=== PATIENT | female | born 1985 | race Caucasian/White ===

== ENCOUNTER 2020-01-04 10:40 | Outpatient (REF) | payer MEDICAID, SELFPAY ==
--- NOTE | 2020-01-04 | XR_ITS ---
EXAMINATION: XR HIP, RIGHT CLINICAL INFORMATION: Pain right hip COMPARISON: None TECHNIQUE: Two views of the right hip. FINDINGS: There is no fracture or dislocation or destructive process. Bony mineralization appears normal. There is no definite hip joint narrowing. No erosive change or chondrocalcinosis. Soft tissue planes are unremarkable. The right SI joint and the pubis are unremarkable. XR/XR hip RT min 2V IMPRESSION: Normal right hip.
== END 2020-01-04 10:41 | disposition home or self-care (01) ==
LOC: HO.XRAY 10:40
PROVIDERS: PCP Internal Medicine; Visit Provider Internal Medicine
DX: M25.551 Pain in right hip (principal)
CPT/HCPCS: 73502

== ENCOUNTER → 2020-01-17 13:00 | Outpatient (BNVA) | payer MEDICAID, SELFPAY | PROVIDERS: PCP Internal Medicine; Visit Provider Orthopaedic Surgery | DX: M70.61 Trochanteric bursitis, right hip (principal) | CPT/HCPCS: 99202 ==

== ENCOUNTER 2020-02-27 10:00 | Outpatient (RCR) | payer MEDICAID, SELFPAY ==
--- NOTE | 2020-03-18 09:16 | MHC.PT.DC ---
[facility] [place] [facility] [place] [facility] [place] [facility] [address] Rich Mueller [address] [phone] F: [phone] F: [phone] F: [phone] F: [phone] Physical Therapy Discharge Report Diagnosis: R hip bursitis. Date of Surgery: Date of Evaluation: 01/30/20 Date of Discharge: 03/18/20 Treatments to Date: 6 Cancellations to Date: 2 No Shows to Date: 2 Discharge Status: Achieved Goals Improved Function Independent with HEP Discharge Summary: Barbara has been an active and motivated participant in her therapy in and out of the clinic before she had logged 2 no show appointments at the end of her program; this is after reporting significant relief of hip pain Sx and significantly improved functional ability; from last Note: 95% subjective improvement reported . Before attendance non compliance Barbara had become I with her home program and demonstrated achieved goals. Electronically signed by: Adrian Pugh PT. Please sign and return to therapist. Thank you for your referral.
== END 2020-12-23 08:02 | disposition home or self-care (01) ==
LOC: HO.PTCHIC 10:00
PROVIDERS: PCP Internal Medicine; Visit Provider Orthopaedic Surgery
DX: M70.61 Trochanteric bursitis, right hip (principal)
CPT/HCPCS: 97014; 97033; 97110; 97112; 97140; 97161

== ENCOUNTER 2020-04-03 09:30 | Emergency (ER) | payer MEDICAID, SELFPAY ==
--- NOTE | 2020-04-03 10:35 | ECG_ITS ---
Test Reason : CHEST PAIN Blood Pressure : / mmHG Vent. Rate : 079 BPM Atrial Rate : 079 BPM P-R Int : 146 ms QRS Dur : 086 ms QT Int : 390 ms P-R-T Axes : 026 -16 011 degrees QTc Int : 447 ms Normal sinus rhythm Normal ECG When compared with ECG of 20-JUN-2018 23:33, Nonspecific T wave abnormality now evident in Inferior leads Referred By: Krystal Clemente Electronically Signed By:DARIO VELAZQUEZ MD
--- NOTE | 2020-04-03 10:35 | XR_ITS ---
EXAMINATION: XR CHEST CLINICAL INFORMATION: Chest pain COMPARISON: Previous chest x-ray May 2018 TECHNIQUE: Frontal view of the chest was obtained. FINDINGS: No significant abnormality is noted involving the heart, lungs, mediastinum, bony thorax or soft tissues. XR/XR chest 1V IMPRESSION: Unremarkable examination.
[2020-04-03 10:39] VITALS: BP 140/89; PULSE 70; RESP 15; TEMP 36.9; O2SAT 98; BMI 28.3
[2020-04-03 10:54] LABS: MANUAL DIFF FLAG NO
--- NOTE | 2020-04-03 10:54 | ED_ITS ---
HPI - Chest Pain General Chief Complaint: Chest Pain Stated Complaint: CHEST PAIN Time Seen by Provider: 04/03/20 10:29 Source: patient Mode of arrival: ambulatory History of Present Illness HPI narrative: 35-year-old female with a past medical history of asthma, hypothyroid, presenting to the ED complaining of sudden onset substernal/left- sided chest pain while cleaning her living room around 8:30 a.m. admits to mild associated SOB. Denies fever, chills, cough, recent travel, history of blood clots, LE edema Reports similar symptoms in the past due to her anxiety, however states this feels different MD complaint: chest pain Related Data Home Medications Medication Instructions Recorded Confirmed albuterol sulfate 2 mg tablet 2 mg PO TID 01/08/20 diphenhydramine HCl 12.5 mg/5 mL 25 mg PO BEDTIME PRN 01/08/20 oral liquid ibuprofen 800 mg tablet 800 mg PO Q8H 01/08/20 Previous Rx's Medication Instructions Recorded diclofenac sodium 75 mg 75 mg PO BID #60 tab 01/22/20 tablet,delayed release levothyroxine 75 mcg PO DAILY #30 cap 04/03/20 Allergies Allergy/AdvReac Type Severity Reaction Status Date / Time latex [Latex] Allergy Mild RASH Unverified 11/16/19 17:26 levofloxacin [From Levaquin] Allergy Mild RASH Unverified 11/16/19 17:26 LATEX Allergy Unknown rash Uncoded 08/10/16 00:00 Latex Gloves Allergy Unknown Uncoded 05/18/16 00:00 Levaquin Allergy Unknown skin Uncoded 08/10/16 00:00 reaction Review of Systems Review of Systems: Constitutional: No Weight loss, No Fever, No Chills Cardiovascular: +Chest Pain, +SOB, No Dyspnea on Exertion, No Orthopnea, No Edema, No Palpitations Respiratory: No Cough, No Sputum, No Wheezing, No Smoke Exposure, No Dyspnea Gastrointestinal: No Nausea, No Vomiting, No Diarrhea, No Constipation, No Abdominal pain Genitourinary: No Dysuria, No Hematuria Musculoskeletal: No joint pain, No Myalgias, No Joint Swelling Skin: No Skin Lesions, No rash Neuro: No Weakness, No Numbness, No Dizziness, No Headache Yes all other systems are reviewed and are negative PMFSH Past Medical History Attestation statement: The following information was validated with the patient. Medical History (Updated 04/03/20 @ 14:04 by JAMES Chun) Arthralgia Asthma Cryptic tonsil Dysphagia Hypothyroidism Moderate hyperemesis gravidarum Suspected COVID-19 virus infection Thyroid nodule Surgical History (Updated 01/17/20 @ 13:08 by Tania Vasquez CMA) Previous section Social History Social History (Updated 01/17/20 @ 13:09 by Tania Vasquez CMA) Smoking Status: Current every day smoker Smoked in Last 30 Days: Yes Use of substances other than those prescribed or required for medical reasons: Yes Substance Use Type: Marijuana Advance Directives: No Advance Directives Information Provided: No Current occupational status: unemployed Current occupation: Right handed Physical Exam Vital Signs: Vital Signs: Last Vital Signs Temp 98.4 F 04/03/20 10:39 Pulse 70 04/03/20 10:39 Resp 15 04/03/20 10:39 BP 140/89 H 04/03/20 10:39 Pulse Ox 98 04/03/20 10:39 Body Mass Index 28.3 Const: General: cooperative, healthy appearing, comfortable and no acute distr ess Orientation/consciousness: patient oriented x3 Limitations: no limitations HENMT: Head: Yes normal to inspection Ears: hearing grossly normal bilaterally General nose exam: Normal external nose present Face and sinus: Yes normal facial exam Eyes: General: appearance normal, both eyes and all related structures EOM: EOMs intact bilaterally Neck: Neck: Yes normal visual inspection Chest: Chest palpation & inspection: normal inspection of the chest, no crepitus and no tenderness Resp: Effort & Inspection: normal respiratory effort Auscultation: clear to auscultation bilaterally, no rales, no rhonchi and no wheezes Cardio: Rate: regular rate Heart sounds: S1 normal heart sound present and S2 normal heart sound present GI: Inspection: Yes normal to inspection Palpation (GI): Soft to palpation, nontender, no guarding and not rigid Skin: Rashes: no rashes Wounds: no wounds Neuro: General: patient oriented x3 Gait exam (Neuro): Normal gait present Extrem: Other: No LE edema or calf tenderness General: Yes normal to inspection Course Course Course Narrative: -1230-- initial troponin negative. TSH level very elevated, T4 low > patient reports she has been noncompliant with her levothyroxine x multiple years due to issues with doctor. Reports she used to be on 75 mcg daily, will give dose here today, & send with RX and follow-up with endocrine. No evidence of edema, no confusion, not hypothermic or bradycardic > no evidence hypothyroid crisis -1400-- repeat troponin pending, patient would like to leave prior to results, will call if positive Results discussed including worrisome signs and symptoms and strict return precautions. MDM - Chest Pain MDM Narrative Medical decision making narrative: 35-year-old female with a past medical history of asthma, hypothyroid, presenting to the ED complaining of sudden onset substernal/left-sided chest pain while cleaning her living room around 8:30 a.m. on exam VSS, NAD/nontoxic appearing, pain not reproducible, lungs CTA. Concern for ACS vs MSK pain. Low concern for PE/DVT or pneumonia/viral syndrome Plan: EKG, labs, CXR, re-evaluate Lab Data Result diagrams: 04/03/20 10:49 04/03/20 10:49 Labs: Lab Results 04/03/20 04/03/20 04/03/20 Range/Units 10:49 10:49 10:49 WBC 10.2 (4.8-10.8) X10*3/uL RBC 4.28 (4.20-5.50) X10*6/uL Hgb 12.0 (12.0-16.0) g/dl Hct 36.3 L (37-47) % MCV 84.8 (80-98) fL MCH 28.0 (27.0-33.0) pg MCHC 33.1 (31.0-35.0) g/dl RDW 13.3 (11.0-16.0) % Plt Count 353 (160-400) X10*3/uL MPV 9.9 (9.4-12.3) fL Immature Gran % (Auto) 0.3 (0.0-0.4) % Neut % (Auto) 71.0 (45-73) % Lymph % (Auto) 21.3 (20-40) % [place] % (Auto) 4.7 (2-11) % Eos % (Auto) 1.8 (0-4) % Baso % (Auto) 0.9 (0-2) % Lymph # (Auto) 2.2 (1.2-4.9) X10*3/uL [place] # (Auto) 0.5 (0.1-1.2) X10*3/uL Eos # (Auto) 0.2 (0.0-0.4) X10*3/uL Baso # (Auto) 0.1 (0.0-0.2) X10*3/uL Abs Immat Gran (auto) 0.03 (0.00-0.03) X10*3/uL Absolute Neuts (auto) 7.3 (2.0-8.3) X10*3/uL Absolute Nucleated RBC 0.000 (0.0-0.012) X10*3/uL Nucleated RBC % (auto) 0.0 (0.0-0.2) /100WBC Hold Blue Top SEE NOTE Sodium 137 (135-145) mmol/L Potassium 3.8 (3.3-5.1) mmol/L Chloride 103 (96-108) mmol/L Carbon Dioxide 25 (22-29) mmol/L Anion Gap 13 (12-20) BUN 5 L (9-16) mg/dL Creatinine 0.72 (0.5-1.4) mg/dL Estim Creat Clear Calc 96.2 Estimated GFR > 60 Random Glucose 97 (60-115) mg/dL Calcium 8.8 (8.4-10.2) mg/dL Magnesium 2.2 (1.6-2.6) mg/dL Total Bilirubin 0.8 (0.0-1.0) mg/dL Direct Bilirubin 0.2 (0.0-0.5) mg/dL AST 16 (5-31) U/L ALT 18 (0-31) U/L Alkaline Phosphatase 77 (39-117) U/L Troponin I High Sens (<3.5-17.0) ng/L Total Protein 6.9 (6.5-8.0) g/dL Albumin 4.5 (3.5-5.0) g/dL TSH 20.99 H (0.32-4.0) uIU/mL Free T4 0.63 L (0.71-1.85) ng/dL 04/03/20 Range/Units 10:49 WBC (4.8-10.8) X10*3/uL RBC (4.20-5.50) X10*6/uL Hgb (12.0-16.0) g/dl Hct (37-47) % MCV (80-98) fL MCH (27.0-33.0) pg MCHC (31.0-35.0) g/dl RDW (11.0-16.0) % Plt Count (160-400) X10*3/uL MPV (9.4-12.3) fL Immature Gran % (Auto) (0.0-0.4) % Neut % (Auto) (45-73) % Lymph % (Auto) (20-40) % [place] % (Auto) (2-11) % Eos % (Auto) (0-4) % Baso % (Auto) (0-2) % Lymph # (Auto) (1.2-4.9) X10*3/uL [place] # (Auto) (0.1-1.2) X10*3/uL Eos # (Auto) (0.0-0.4) X10*3/uL Baso # (Auto) (0.0-0.2) X10*3/uL Abs Immat Gran (auto) (0.00-0.03) X10*3/uL Absolute Neuts (auto) (2.0-8.3) X10*3/uL Absolute Nucleated RBC (0.0-0.012) X10*3/uL Nucleated RBC % (auto) (0.0-0.2) /100WBC Hold Blue Top Sodium (135-145) mmol/L Potassium (3.3-5.1) mmol/L Chloride (96-108) mmol/L Carbon Dioxide (22-29) mmol/L Anion Gap (12-20) BUN (9-16) mg/dL Creatinine (0.5-1.4) mg/dL Estim Creat Clear Calc Estimated GFR Random Glucose (60-115) mg/dL Calcium (8.4-10.2) mg/dL Magnesium (1.6-2.6) mg/dL Total Bilirubin (0.0-1.0) mg/dL Direct Bilirubin (0.0-0.5) mg/dL AST (5-31) U/L ALT (0-31) U/L Alkaline Phosphatase (39-117) U/L Troponin I High Sens < 3.5 (<3.5-17.0) ng/L Total Protein (6.5-8.0) g/dL Albumin (3.5-5.0) g/dL TSH (0.32-4.0) uIU/mL Free T4 (0.71-1.85) ng/dL ECG Data ECG #1: Attestation: I personally reviewed and interpreted this ECG as follows: ECG interpretation date: 04/03/20 ECG interpretation time: 12:52 Prior ECG tracings: available for review Interpretation: EKG normal sinus rhythm with a rate of 79. Nonischemic. Discharge Plan Discharge Clinical Impression: Chest pain, Hypothyroid Patient Disposition: Home, Self-Care Instructions: Chest Pain (ED), Hypothyroidism (ED) Additional Instructions: Your blood work showed your thyroid function abnormalities as you have not been taking her thyroid medicine Re-initiate taking levothyroxine as prescribed. You need to follow-up with her primary care doctor as well as endocrinology. Your 2nd heart enzyme is pending, I will contact you if it is positiv e/concerning. No news is good news If her symptoms persist or worsen, your shortness of breath, swelling, fever return to the ED Prescriptions: New levothyroxine 75 mcg capsule 75 mcg PO DAILY Qty: 30 RF: 0 No Action diclofenac sodium 75 mg tablet,delayed release (DR/EC) 75 mg PO BID Qty: 60 RF: 2 Referrals: De Bryant MD [Primary Care Provider] - 2 days Marek Rincon MD [Physician] - 2 days
[2020-04-03 10:57] LABS: Basophils Absolute Auto 0.1 X10*3/uL (0.0-0.2); Basophils Percent Auto 0.9 % (0-2); Eosinophils Absolute Auto 0.2 X10*3/uL (0.0-0.4); Eosinophils Percent Auto 1.8 % (0-4); Hematocrit 36.3 % (37-47); Imm Gran Abs Auto 0.03 X10*3/uL (0.00-0.03); Imm Gran Pct Auto 0.3 % (0.0-0.4); Lymphocytes Absolute Auto 2.2 X10*3/uL (1.2-4.9); Lymphocytes Percent Auto 21.3 % (20-40); Mean Corpuscular HGB Conc 33.1 g/dl (31.0-35.0); Mean Corpuscular Volume 84.8 fL (80-98); Mean Platelet Volume 9.9 fL (9.4-12.3); Monocytes Absolute Auto 0.5 X10*3/uL (0.1-1.2); Monocytes Percent Auto 4.7 % (2-11); Neutrophils Absolute Auto 7.3 X10*3/uL (2.0-8.3); Platelet Count 353 X10*3/uL (160-400); Red Blood Count 4.28 X10*6/uL (4.20-5.50); Red Cell Distribution Width 13.3 % (11.0-16.0); White Blood Count 10.2 X10*3/uL (4.8-10.8)
[2020-04-03 11:28] LABS: Alanine Aminotransferase 18 U/L (0-31); Albumin Level 4.5 g/dL (3.5-5.0); Alkaline Phosphatase 77 U/L (39-117); Anion Gap 13 (12-20); Aspartate Amino Transferase 16 U/L (5-31); Bilirubin Direct 0.2 mg/dL (0.0-0.5); Bilirubin Total 0.8 mg/dL (0.0-1.0); Blood Urea Nitrogen 5 mg/dL (9-16); Calcium 8.8 mg/dL (8.4-10.2); Carbon Dioxide 25 mmol/L (22-29); Chloride 103 mmol/L (96-108); Creatinine Clr Calc Pharmacy 96.2; Estimated Glomerular Filt Rate > 60; Glucose Random 97 mg/dL (60-115); Magnesium 2.2 mg/dL (1.6-2.6); Potassium 3.8 mmol/L (3.3-5.1); Sodium 137 mmol/L (135-145); Total Protein 6.9 g/dL (6.5-8.0)
[2020-04-03 11:30] LABS: Troponin-I High Sensitivity < 3.5 ng/L (<3.5-17.0)
[2020-04-03 12:05] LABS: TSH reflex Free T4 20.99 uIU/mL (0.32-4.0)
[2020-04-03 12:37] LABS: Free T4 (Free Thyroxine) 0.63 ng/dL (0.71-1.85)
[2020-04-03] MEDS: Levothyroxine Sodium 75 MCG TABLET PO (13:05)
[2020-04-03 14:03] VITALS: BP 120/83; PULSE 75; RESP 18; O2SAT 97
[2020-04-03 14:25] LABS: Troponin-I High Sensitivity < 3.5 ng/L (<3.5-17.0)
== END 2020-04-03 14:15 | disposition home or self-care (01) ==
PROVIDERS: Physician Assistant; Emergency Provider Emergency Medicine; PCP Internal Medicine
DX: R07.9 Chest pain, unspecified (principal); E03.9 Hypothyroidism, unspecified; F17.200 Nicotine dependence, unspecified, uncomplicated
CPT/HCPCS: 36415; 71045; 80048; 80076; 83735; 84439; 84443; 84484; 85025; 93005; 99284

== ENCOUNTER 2020-10-04 07:24 | Emergency (ER) | payer MEDICAID, SELFPAY ==
--- NOTE | ~2020-10-04 | XR_ITS ---
EXAMINATION: XR FOOT, RIGHT CLINICAL INFORMATION: Right heel pain COMPARISON: None TECHNIQUE: AP, lateral, and oblique views of the right foot. FINDINGS: Bone alignment is normal. No fracture or dislocation is seen. Joint spaces are normal. Soft tissues are normal. XR/XR foot RT 2V IMPRESSION: Normal right foot.
[2020-10-04 07:31] VITALS: BP 138/88; PULSE 92; RESP 18; TEMP 36.6; O2SAT 99; BMI 28.3
--- NOTE | 2020-10-04 08:39 | ED.LOWEXIN ---
HPI - Extremity Injury (Lower) General Chief Complaint: Extremity Injury, Lower Stated Complaint: injury Time Seen by Provider: 10/04/20 08:28 Source: patient Mode of arrival: ambulatory Limitations: no limitations History of Present Illness HPI Narrative: 35 y/o female presenting with right heel pain after she jumped off of a 2nd step while playing with her children yesterday. She heard a pop and had immediate pain. She had a hard time sleeping last night due to the pain. She reports the pain persisted this morning so she came to the ER for evaluation. She states the pain is only in the heel itself, no ankle, toe, knee or hip pain. No numbness or tingling. She is able to walk on the ball of her foot but unable to put pressure on the heel. MD complaint: foot injury Onset (ago): day(s) (1) Injury: Right: foot Type of Injury: blunt Place: home Severity: moderate Relieving factors: NSAID and immobilization Exacerbating factors: weight bearing and palpation Context: direct blow and jumping Associated symptoms: snap/pop sensation and able to partially bear weight Other symptoms: none Treatments prior to arrival: cold therapy and NSAIDS Related Data Home Medications Medication Instructions Recorded Confirmed albuterol sulfate 2 mg tablet 2 mg PO TID 01/08/20 diphenhydramine HCl 12.5 mg/5 mL 25 mg PO BEDTIME PRN 01/08/20 oral liquid (Benadryl Allergy) ibuprofen 800 mg tablet 800 mg PO Q8H 01/08/20 Previous Rx's Medication Instructions Recorded diclofenac sodium 75 mg 75 mg PO BID #60 tab 01/22/20 tablet,delayed release levothyroxine 75 mcg capsule 75 mcg PO DAILY #30 cap 04/03/20 ibuprofen 800 mg tablet 800 mg PO Q8H PRN #14 tab 10/04/20 Allergies Allergy/AdvReac Type Severity Reaction Status Date / Time latex [Latex] Allergy Mild RASH Verified 10/04/20 07:35 levofloxacin [From Levaquin] Allergy Mild RASH Verified 10/04/20 07:35 LATEX Allergy Unknown rash Uncoded 08/10/16 00:00 Review of Systems Review of Systems: Constitutional: No Fever, No Chills Cardiovascular: No Chest Pain, No SOB Respiratory: No Cough, No Sputum Gastrointestinal: No Nausea, No Vomiting Musculoskeletal: + joint pain, No Myalgias Skin: No Skin Lesions, No rash Neuro: No Weakness, No Numbness Psych: No Anxiety/Panic, No Depression Heme/Lymph: No Bruising PMFSH Past Medical History Medical History Arthralgia Asthma Cryptic tonsil Dysphagia Hypothyroidism Moderate hyperemesis gravidarum Suspected COVID-19 virus infection Thyroid nodule Surgical History (Updated 01/17/20 @ 13:08 by Tania Vasquez CMA) Previous section Social History Social History (Updated 01/17/20 @ 13:09 by Tania Vasquez CMA) Substance Use Type: Marijuana Advance Directives: Yes Advance Directives Information Provided: Yes Advance Directives on File: No Current occupational status: unemployed Current occupation: Right handed Physical Exam Vital Signs: Vital Signs: Last Vital Signs Temp 97.8 F 10/04/20 07:31 Pulse 92 10/04/20 07:31 Resp 18 10/04/20 07:31 BP 138/88 10/04/20 07:31 Pulse Ox 99 10/04/20 07:31 Body Mass Index 28.3 Appearance: Alert. Oriented X3. No acute distress. HEENT: normal inspection CVS: Normal heart rate and rhythm. Pulses normal. Respiratory: No respiratory distress. Skin: Skin warm and dry. Normal skin color. Normal skin turgor. No rashes. Extremities: normal inspection of right foot, right heel with tenderness throughout. negative Wallace test. normal palpation of Achilles tendon. Neuro: Oriented X 3. No motor deficit. No sensory deficit. Unable to test gait due to pain Course Course Course Narrative: 35 y/o female presenting with right heel pain after jumping off of 2 steps onto the ground. The mechanism does not seem to be enough to cause calcaneous fracture. Achilles tendon is intact. XR is pending. Reevaluation(s) Reevaluation #1: Foot XR is negative for acute fracture. We discussed dedicated calcaneous XR vs watchful waiting and supportive care with rest and NSAID. Patient will be discharged home with crutches and will plan to return if pain persists or worsens despite supportive care. Discharge Plan Discharge Clinical Impression: Contusion of foot Qualifiers: Encounter type: initial encounter Laterality: right Qualified Code(s): S90.31XA - Contusion of right foot, initial encounter Patient Disposition: Home, Self-Care Instructions: Foot Contusion (ED) Additional Instructions: Your x-ray today was normal. Recommend rest, ice and elevation. Stay off of your foot and use crutches until pain is improved. Take prescribed motrin as needed for pain. Take with food. If you have persistent or worsening pain come back to the ER for re-evaluation. Prescriptions: New ibuprofen 800 mg tablet 800 mg PO Q8H PRN (Reason: pain) Qty: 14 RF: 0 No Action diclofenac sodium 75 mg tablet,delayed release (DR/EC) 75 mg PO BID Qty: 60 RF: 2 levothyroxine 75 mcg capsule 75 mcg PO DAILY Qty: 30 RF: 0 Interventions: ED Discharge Assessment Last Done: 10/04/20 09:04 Discharge Date/Time: 10/04/20 09:05
== END 2020-10-04 09:05 | disposition home or self-care (01) ==
PROVIDERS: Emergency Provider Emergency Medicine Emergency Medical Services
DX: S90.31XA Contusion of right foot, initial encounter (principal); Y93.39 Activity, other involving climbing, rappelling and jumping off; Y93.9 Activity, unspecified; Y92.009 Unspecified place in unspecified non-institutional (private) residence as the place of occurrence of the external cause; Y99.9 Unspecified external cause status
CPT/HCPCS: 73620; 99283

== ENCOUNTER 2020-11-24 07:58 | Emergency (ER) | payer MEDICAID, SELFPAY ==
--- NOTE | 2020-11-24 | ECG_ITS ---
Test Reason : CP Blood Pressure : / mmHG Vent. Rate : 076 BPM Atrial Rate : 076 BPM P-R Int : 146 ms QRS Dur : 082 ms QT Int : 430 ms P-R-T Axes : 013 -10 018 degrees QTc Int : 483 ms Poor data quality, interpretation may be adversely affected Normal sinus rhythm Nonspecific ST and T wave abnormality Abnormal ECG When compared with ECG of 03-APR-2020 09:59, No significant change was found Referred By: Generic ED Physician Electronically Signed By:EMELY THOMPSON
--- NOTE | ~2020-11-24 | XR_ITS ---
EXAMINATION: XR CHEST CLINICAL INFORMATION: Chest pain. COMPARISON: None TECHNIQUE: Frontal view of the chest was obtained. FINDINGS: No significant abnormality is noted involving the heart, lungs, mediastinum, bony thorax or soft tissues. XR/XR chest 1V IMPRESSION: Unremarkable chest examination.
[2020-11-24 08:08] VITALS: BP 131/81; PULSE 83; RESP 16; TEMP 37.1; O2SAT 97; BMI 25.6
[2020-11-24 08:13] VITALS: PULSE 88
[2020-11-24 08:44] LABS: MANUAL DIFF FLAG NO
[2020-11-24 08:46] LABS: Basophils Absolute Auto 0.1 X10*3/uL (0.0-0.2); Basophils Percent Auto 0.9 % (0-2); Eosinophils Absolute Auto 0.2 X10*3/uL (0.0-0.4); Hematocrit 35.7 % (37-47); Hemoglobin 11.8 g/dl (12.0-16.0); Imm Gran Abs Auto 0.02 X10*3/uL (0.00-0.03); Imm Gran Pct Auto 0.3 % (0.0-0.4); Lymphocytes Absolute Auto 2.1 X10*3/uL (1.2-4.9); Lymphocytes Percent Auto 27.3 % (20-40); Mean Corpuscular HGB Conc 33.1 g/dl (31.0-35.0); Mean Corpuscular Hemoglobin 28.5 pg (27.0-33.0); Mean Corpuscular Volume 86.2 fL (80-98); Mean Platelet Volume 10.8 fL (9.4-12.3); Monocytes Absolute Auto 0.4 X10*3/uL (0.1-1.2); Monocytes Percent Auto 4.7 % (2-11); Neutrophils Absolute Auto 4.8 X10*3/uL (2.0-8.3); Neutrophils Percent Auto 63.8 % (45-73); Platelet Count 335 X10*3/uL (160-400); Red Blood Count 4.14 X10*6/uL (4.20-5.50); Red Cell Distribution Width 13.2 % (11.0-16.0); White Blood Count 7.6 X10*3/uL (4.8-10.8)
[2020-11-24 09:00] LABS: Anion Gap 14 (12-20); Blood Urea Nitrogen 4 mg/dL (9-16); Calcium 8.6 mg/dL (8.4-10.2); Carbon Dioxide 20 mmol/L (22-29); Chloride 108 mmol/L (96-108); Creatinine Clr Calc Pharmacy 94.1; Estimated Glomerular Filt Rate > 60; Glucose Random 99 mg/dL (60-115); Potassium 3.8 mmol/L (3.3-5.1); Sodium 138 mmol/L (135-145)
--- NOTE | 2020-11-24 09:02 | ED.CHESTPAIN ---
HPI - Chest Pain General Chief Complaint: Chest Pain Stated Complaint: chest pain Time Seen by Provider: 11/24/20 09:01 History of Present Illness HPI narrative: Patient is a 35-year-old female with a history of smoking presented today with having chest pain that is over the right chest fairly constant not resulting in shortness of breath or diaphoresis. Not affected by deep breath. Patient keep pressing on the pain. Patient denies any coughing, congestion, upper respiratory symptoms. No history of diabetes. Positive history of smoking. No history of hypertension, hypercholesterolemia. No family history of coronary artery disease. Patient never had a heart attack. Does not think she is . The pain is persistent. Patient denies any risk stratification done in the past. Related Data Home Medications Medication Instructions Recorded Confirmed albuterol sulfate 2 mg tablet 2 mg PO TID 01/08/20 diphenhydramine HCl 12.5 mg/5 mL 25 mg PO BEDTIME PRN 01/08/20 oral liquid (Benadryl Allergy) ibuprofen 800 mg tablet 800 mg PO Q8H 01/08/20 Previous Rx's Medication Instructions Recorded diclofenac sodium 75 mg 75 mg PO BID #60 tab 01/22/20 tablet,delayed release levothyroxine 75 mcg capsule 75 mcg PO DAILY #30 cap 04/03/20 ibuprofen 800 mg tablet 800 mg PO Q8H PRN #14 tab 10/04/20 Allergies Allergy/AdvReac Type Severity Reaction Status Date / Time latex [Latex] Allergy Mild RASH Verified 10/04/20 07:35 levofloxacin [From Levaquin] Allergy Mild RASH Verified 10/04/20 07:35 LATEX Allergy Unknown rash Uncoded 08/10/16 00:00 Review of Systems Review of Systems: No fever no chills, no diaphoresis Positive shortness of breath All systems reviewed otherwise negative Yes all other systems are reviewed and are negative PMFSH Past Medical History Attestation statement: The following information was validated with the patient. Medical History Arthralgia Asthma Cryptic tonsil Dysphagia Hypothyroidism Moderate hyperemesis gravidarum Suspected COVID-19 virus infection Thyroid nodule Surgical History Previous section Social History Social History Patient Tobacco Use Status: Current everyday Tobacco user Substance Use Type: Marijuana Substance Use Frequency: Occasionally Advance Directives: No Patient : No Current occupational status: unemployed Current occupation: Right handed Physical Exam Vital Signs: Vital Signs: Last Vital Signs Temp 98.8 F 11/24/20 08:08 Pulse 83 11/24/20 08:08 Resp 16 11/24/20 08:08 BP 131/81 11/24/20 08:08 Pulse Ox 97 11/24/20 08:08 Body Mass Index 25.6 Appearance: Alert. Oriented X3. No acute distress. Eyes: Pupils equal, round and reactive to light. ENT: Pharynx normal. Neck: Normal inspection. Neck supple. No lymph nodes noted. No crepitus CVS: Normal heart rate and rhythm. Pulses normal. Normal S1 and S2 Respiratory: No respiratory distress. Breath sounds normal. No Wheezing. No rales Abdomen: Soft and nontender. No rigidity. No distention. good BS x4 Skin: Skin warm and dry. Normal skin color. Normal skin turgor. Extremities: No lower extremity edema. Neurovascular intact to all extremities. No Lacerations. No Rash Neuro: Oriented X 3. No motor deficit. No sensory deficit. Moving all extermities. No slurred speech MDM - Chest Pain MDM Narrative Medical decision making narrative: Patient's EKG showed a sinus pattern heart rate is 80 CT QRS QT within normal limits is no acute ST segment elevation noted. Patient has 1 cardiac risk factor pain is atypical for ACS. Normal EKG. Troponin negative. Heart score is less than 3. Will discharge patient home. Patient's D-dimer is negative in the setting\of low history unlikely to have pulmonary emboli. Chest x-ray showed no pneumonia pneumothorax. Patient is in stable condition with discharge home. Medical Records Data Attestation: I reviewed the patient's medical records. Lab Data Attestation: I reviewed the patient's lab results. Result diagrams: 11/24/20 08:40 11/24/20 08:40 Labs: Lab Results 11/24/20 11/24/20 11/24/20 Range/Units 08:40 08:40 08:40 WBC 7.6 (4.8-10.8) X10*3/uL RBC 4.14 L (4.20-5.50) X10*6/uL Hgb 11.8 L (12.0-16.0) g/dl Hct 35.7 L (37-47) % MCV 86.2 (80-98) fL MCH 28.5 (27.0-33.0) pg MCHC 33.1 (31.0-35.0) g/dl RDW 13.2 (11.0-16.0) % Plt Count 335 (160-400) X10*3/uL MPV 10.8 (9.4-12.3) fL Immature Gran % (Auto) 0.3 (0.0-0.4) % Neut % (Auto) 63.8 (45-73) % Lymph % (Auto) 27.3 (20-40) % [place] % (Auto) 4.7 (2-11) % Eos % (Auto) 3.0 (0-4) % Baso % (Auto) 0.9 (0-2) % Lymph # (Auto) 2.1 (1.2-4.9) X10*3/uL [place] # (Auto) 0.4 (0.1-1.2) X10*3/uL Eos # (Auto) 0.2 (0.0-0.4) X10*3/uL Baso # (Auto) 0.1 (0.0-0.2) X10*3/uL Abs Immat Gran (auto) 0.02 (0.00-0.03) X10*3/uL Absolute Neuts (auto) 4.8 (2.0-8.3) X10*3/uL Absolute Nucleated RBC 0.000 (0.0-0.012) X10*3/uL Nucleated RBC % (auto) 0.0 (0.0-0.2) /100WBC D-Dimer NG/ML Sodium 138 (135-145) mmol/L Potassium 3.8 (3.3-5.1) mmol/L Chloride 108 (96-108) mmol/L Carbon Dioxide 20 L (22-29) mmol/L Anion Gap 14 (12-20) BUN 4 L (9-16) mg/dL Creatinine 0.73 (0.5-1.4) mg/dL Estim Creat Clear Calc 94.1 Estimated GFR > 60 Random Glucose 99 (60-115) mg/dL Calcium 8.6 (8.4-10.2) mg/dL Troponin I High Sens < 3.5 (<3.5-17.0) ng/L 11/24/20 Range/Units 09:26 WBC (4.8-10.8) X10*3/uL RBC (4.20-5.50) X10*6/uL Hgb (12.0-16.0) g/dl Hct (37-47) % MCV (80-98) fL MCH (27.0-33.0) pg MCHC (31.0-35.0) g/dl RDW (11.0-16.0) % Plt Count (160-400) X10*3/uL MPV (9.4-12.3) fL Immature Gran % (Auto) (0.0-0.4) % Neut % (Auto) (45-73) % Lymph % (Auto) (20-40) % [place] % (Auto) (2-11) % Eos % (Auto) (0-4) % Baso % (Auto) (0-2) % Lymph # (Auto) (1.2-4.9) X10*3/uL [place] # (Auto) (0.1-1.2) X10*3/uL Eos # (Auto) (0.0-0.4) X10*3/uL Baso # (Auto) (0.0-0.2) X10*3/uL Abs Immat Gran (auto) (0.00-0.03) X10*3/uL Absolute Neuts (auto) (2.0-8.3) X10*3/uL Absolute Nucleated RBC (0.0-0.012) X10*3/uL Nucleated RBC % (auto) (0.0-0.2) /100WBC D-Dimer < 200 NG/ML Sodium (135-145) mmol/L Potassium (3.3-5.1) mmol/L Chloride (96-108) mmol/L Carbon Dioxide (22-29) mmol/L Anion Gap (12-20) BUN (9-16) mg/dL Creatinine (0.5-1.4) mg/dL Estim Creat Clear Calc Estimated GFR Random Glucose (60-115) mg/dL Calcium (8.4-10.2) mg/dL Troponin I High Sens (<3.5-17.0) ng/L Discharge Plan Discharge Clinical Impression: Atypical chest pain Patient Disposition: Home, Self-Care Instructions: Chest Pain (ED) Prescriptions: No Action diclofenac sodium 75 mg tablet,delayed release (DR/EC) 75 mg PO BID Qty: 60 RF: 2 levothyroxine 75 mcg capsule 75 mcg PO DAILY Qty: 30 RF: 0 ibuprofen 800 mg tablet 800 mg PO Q8H PRN (Reason: pain) Qty: 14 RF: 0 Referrals: De Bryant MD [Primary Care Provider] - 2 days
[2020-11-24 09:06] LABS: Troponin-I High Sensitivity < 3.5 ng/L (<3.5-17.0)
[2020-11-24 09:43] LABS: D Dimer < 200 NG/ML
== END 2020-11-24 10:45 | disposition home or self-care (01) ==
PROVIDERS: Emergency Provider Emergency Medicine Emergency Medical Services; PCP Internal Medicine
DX: R07.9 Chest pain, unspecified (principal); F12.90 Cannabis use, unspecified, uncomplicated; Z79.899 Other long term (current) drug therapy; Z87.891 Personal history of nicotine dependence
CPT/HCPCS: 36415; 71045; 80048; 84484; 85025; 85379; 93005; 99284

== ENCOUNTER 2021-02-20 09:13 | Emergency (ER) | payer MEDICAID, SELFPAY ==
[2021-02-20 09:26] VITALS: BP 136/87; PULSE 78; RESP 19; TEMP 36.6; O2SAT 98; BMI 33.0
--- NOTE | 2021-02-20 09:35 | ED_ITS ---
HPI - Back Pain/Injury General Chief Complaint: Back Pain/Injury Stated Complaint: back pain Time Seen by Provider: 02/20/21 09:35 Source: patient Limitations: no limitations History of Present Illness HPI Narrative: Patient complaining of lower back pain after helping her child who is approximately 40 lb out of the car seat yesterday. Patient felt a pull in her lower back. Patient has a history of hypothyroidism denies any medication allergies and only takes levothyroxine. Symptoms are [id number] pain 09/07. No relief with [id number] Tylenol or Motrin. Symptoms increase with any range of motion twisting or bending. No recent falls or trauma. Related Data Home Medications Medication Instructions Recorded Confirmed albuterol sulfate 2 mg tablet 2 mg PO TID 01/08/20 diphenhydramine HCl 12.5 mg/5 mL 25 mg PO BEDTIME PRN 01/08/20 oral liquid (Benadryl Allergy) ibuprofen 800 mg tablet 800 mg PO Q8H 01/08/20 Previous Rx's Medication Instructions Recorded diclofenac sodium 75 mg 75 mg PO BID #60 tab 01/22/20 tablet,delayed release levothyroxine 75 mcg capsule 75 mcg PO DAILY #30 cap 04/03/20 ibuprofen 800 mg tablet 800 mg PO Q8H PRN #14 tab 10/04/20 methocarbamol 750 mg tablet 750 mg PO TID PRN #30 tab 02/20/21 naproxen 500 mg tablet,delayed 500 mg PO BID PRN #20 tab 02/20/21 release (EC-Naproxen) tramadol 50 mg tablet 50 mg PO BID PRN #10 tab 02/20/21 Allergies Allergy/AdvReac Type Severity Reaction Status Date / Time latex [Latex] Allergy Mild RASH Verified 10/04/20 07:35 levofloxacin [From Levaquin] Allergy Mild RASH Verified 10/04/20 07:35 LATEX Allergy Unknown rash Uncoded 08/10/16 00:00 Review of Systems Constitutional: Constitutional: Denies chills, Denies fever(s) and Denies headache(s) ENT: Denies headache(s) Cardiovascular: Cardiovascular: Denies chest pain and Denies dyspnea Respiratory: Respiratory: Denies cough and Denies dyspnea Gastrointestinal: Gastrointestinal: Denies nausea and Denies vomiting Musculoskeletal: Musculoskeletal: Reports back pain Neurologic: Denies headache(s) [facility] Past Medical History Attestation statement: The following information was validated with the patient. Medical History Arthralgia Asthma Cryptic tonsil Dysphagia Hypothyroidism Moderate hyperemesis gravidarum Suspected COVID-19 virus infection Thyroid nodule Surgical History Previous section Social History Social History Patient Tobacco Use Status: Current everyday Tobacco user Substance Use Type: Marijuana Advance Directives: No Advance Directives Information Provided: No Patient : No Current occupational status: unemployed Current occupation: Right handed Physical Exam Vital Signs: Vital Signs: Last Vital Signs Temp 98 F 02/20/21 09:26 Pulse 78 02/20/21 09:26 Resp 19 02/20/21 09:26 BP 136/87 02/20/21 09:26 Pulse Ox 98 02/20/21 09:26 BMI result Body Mass Index 33.0 vital signs have been reviewed as normal and appeared to be correct. Blood pressure normal. Heart rate normal. Respiration rate normal. Temperature normal. Oxygen saturation normal. Appearance: Alert. Oriented X3. No acute distress. Head: Normal external exam. Normocephalic. Atraumatic. Eyes: PERRLA. EOMI. Conjunctiva and sclera normal. Eyelids normal. ENT: Pharynx normal. Uvula midline. Moist mucous membranes. Neck: Soft full range of motion, no JVD CVS: Heart regular rate and rhythm no murmurs and rubs Respiratory: Breath sounds are clear to auscultation bilaterally. No accessory muscle use noted. Back: Positive diffuse paraspinal muscle tenderness of the lumbar spine pain increases with any range of motion Skin: Skin warm and dry. Normal skin color. No ecchymosis no rashes Extremities: No lower extremity edema. Extremities exhibit normal range of motion. Extremities nontender. Neuro: Oriented X 3. No motor deficit. No focal finding Course Course Course Narrative: Lumbar strain Disc herniation Muscle spasm Sciatica Symptoms are consistent with muscle skeletal injury will not get an x-ray at this time as she has had no tremor indicating for x-ray. Will treat with analgesics patient also recommended follow-up with PCP for possible physical therapy and/or outpatient MRI. Discharge Plan Discharge Clinical Impression: Strain of lumbar region Patient Disposition: Home, Self-Care Instructions: Back Pain (ED) Additional Instructions: Follow-up with PCP is recommended for possible referral to physical therapy and/or outpatient MRI. No heavy lifting Medication as directed Prescriptions: New methocarbamol 750 mg tablet 750 mg PO TID PRN (Reason: muscle spasm) Qty: 30 RF: 0 naproxen [EC-Naproxen] 500 mg tablet,delayed release (DR/EC) 500 mg PO BID PRN (Reason: pain) Qty: 20 RF: 0 tramadol 50 mg tablet 50 mg PO BID PRN (Reason: severe pain (scale score 7-10)) Qty: 10 RF: 0 No Action diclofenac sodium 75 mg tablet,delayed release (DR/EC) 75 mg PO BID Qty: 60 RF: 2 levothyroxine 75 mcg capsule 75 mcg PO DAILY Qty: 30 RF: 0 ibuprofen 800 mg tablet 800 mg PO Q8H PRN (Reason: pain) Qty: 14 RF: 0 Stand Alone Forms: Work/School Release
== END 2021-02-20 10:17 | disposition home or self-care (01) ==
PROVIDERS: Emergency Provider Emergency Medicine; PCP Internal Medicine
DX: S39.012A Strain of muscle, fascia and tendon of lower back, initial encounter (principal); E03.9 Hypothyroidism, unspecified; Z79.899 Other long term (current) drug therapy; X50.0XXA Overexertion from strenuous movement or load, initial encounter; Y93.9 Activity, unspecified; Y92.9 Unspecified place or not applicable; Y99.9 Unspecified external cause status
CPT/HCPCS: 99283

== ENCOUNTER → 2021-11-12 13:20 | Outpatient (REF) | payer MEDICAID, SELFPAY ==
--- NOTE | 2021-11-12 13:23 | ECG_ITS ---
Hook-up date: 2021-11-12 12:39:00 Duration: 24:08:00 Test Indications: PALPITATIONS Medications: [id number] QRS complexes 2 Ventricular ectopics which represent <1 % of total QRS comp. 8 Supraventricular ectopics which represent <1 % of total QRS comp. * Paced QRS complexs which represent % of total QRS comp. VENTRICULAR ECTOPY 2 Isolated 0 Bigeminal Cycles 0 Couplets 0 Runs 0 Beats in Runs * Beats LONGEST at * BPM at :: -- * Beats FASTEST at * BPM at :: -- SUPRAVENTRICULAR ECTOPY 6 Isolated 1 Couplets 0 Runs 0 Beats in Runs * Beats LONGEST at * BPM at :: -- * Beats FASTEST at * BPM at :: -- HEART RATES 45 MIN at 03:53:15 2021-11-13 82 AVG 143 MAX at 15:53:14 2021-11-12 LONGEST RR 1.7360 secs at 18:37:53 2021-11-12 S-T LEVELS Channel 1 - 128 mm at 12:39:00 2021-11-12 - 128 mm at 12:39:00 2021-11-12 Channel 2 - 128 mm at 12:39:00 2021-11-12 - 128 mm at 12:39:00 2021-11-12 Channel 3 - 128 mm at 03:15:81 -- - 128 mm at 03:15:81 Basic rhythm Normal sinus rhythm No long pause or profound bradycardia No dangerous dysrhythm periods Patient reported symptoms were not marked, but no significant arrhythmias noted Referred By: De Bryant Overread By: DARIO VELAZQUEZ MD
== END ==
LOC: HO.CARD 13:20
PROVIDERS: PCP Internal Medicine; Visit Provider Internal Medicine
DX: R00.2 Palpitations (principal)
CPT/HCPCS: 93225; 93226

== ENCOUNTER 2022-09-07 16:47 | Outpatient (REF) | payer MEDICAID, SELFPAY | END 2022-09-07 16:48 | disposition home or self-care (01) | LOC: HO.CHCLNP 16:47 | PROVIDERS: Visit Provider Family Medicine | DX: J02.9 Acute pharyngitis, unspecified (principal) | CPT/HCPCS: 87070; 87205 ==

== ENCOUNTER 2022-11-05 08:40 | Outpatient (REF) | payer MEDICAID, SELFPAY ==
--- NOTE | ~2022-11-05 | XR_ITS ---
EXAMINATION: XR LUMBOSACRAL SPINE CLINICAL INFORMATION: Lower back pain with right radiculopathy. COMPARISON: None available. TECHNIQUE: AP and lateral views of the lumbar spine and lateral view of the lumbosacral junction. FINDINGS: Vertebral body heights and alignment are normal. The lumbar disc spaces are well-maintained. No acute fracture or spondylolisthesis is seen. There is mild anterior spondylosis at L1-L2 and L3-L4. The posterior elements are intact. The paravertebral soft tissues are unremarkable. XR/XR lumbar spine 2-3V IMPRESSION: 1. No acute fracture or spondylolisthesis is seen. 2. The lumbar disc spaces are well-maintained. 3. There is mild anterior spondylosis at L1-L2 and L3-L4.
== END 2022-11-05 08:41 | disposition home or self-care (01) ==
LOC: HO.XRAY 08:40
PROVIDERS: PCP Internal Medicine; Visit Provider Family Medicine
DX: M54.16 Radiculopathy, lumbar region (principal)
CPT/HCPCS: 72100

== ENCOUNTER 2022-12-24 08:14 | Outpatient (REF) | payer MEDICAID, SELFPAY ==
--- NOTE | ~2022-12-24 | MR_ITS ---
EXAMINATION: MR LUMBAR SPINE WITHOUT CONTRAST CLINICAL INFORMATION: Low back pain and right lower extremity radiculopathy. COMPARISON: None available. TECHNIQUE: MRI of the lumbar spine was obtained using routine sequences without contrast. FINDINGS: There is reduced intradiscal signal and mild disc space narrowing at the L5-S1 level with a shallow, broad-based right paracentral disc protrusion which mildly impresses upon the right S1 nerve root. Underlying annular tear also visible. Mild facet arthropathy is also visible at this level without central canal stenosis or foraminal narrowing. The remaining imaged thoracolumbar discs are well-hydrated and normal in appearance without central canal stenosis or foraminal narrowing. No additional disc protrusions are seen. There is a small intraosseous hemangioma in the L3 vertebral body. The distal cord, conus tip, and cauda equina nerve roots are normal. The paraspinal soft tissues are unremarkable. MR/MR lumbar spine wo con IMPRESSION: Mild spondylosis at the L5-S1 level with a shallow, broad-based right paracentral disc protrusion mildly impressing upon the right S1 nerve root. Small underlying annular fissure/tear as well.
== END 2022-12-24 08:15 | disposition home or self-care (01) ==
LOC: HO.MRI 08:14
PROVIDERS: PCP Internal Medicine; Visit Provider Family Medicine
DX: M54.16 Radiculopathy, lumbar region (principal)
CPT/HCPCS: 72148

== ENCOUNTER 2023-01-12 13:00 | Outpatient (AMB) | payer MEDICAID, SELFPAY ==
[2023-01-12 13:11] VITALS: BP 147/81; PULSE 90; RESP 18; O2SAT 99; BMI 27.7
--- NOTE | 2023-01-12 13:11 | MHC.OFFVIS ---
Intake Vital Signs 01/12/23 13:11 Height 5 ft 1 in Weight 146 lb 8 oz BMI 27.7 BP 147/81 H Blood Pressure Location Lt brachial Position Sitting Respiration 18 Pulse 90 Pulse Source Pulse Oximeter Pulse Oximetry (%) 99 Oxygen Delivery Method Room Air Intake Visit Reasons: Lumbar back pain radic. affecting RT LE/ Confirmed Allergies latex [Latex] Allergy (Mild, Verified 01/12/23 13:07) RASH levofloxacin [From Levaquin] Allergy (Mild, Verified 01/12/23 13:07) RASH LATEX Allergy (Unknown, Uncoded 08/10/16 00:00) rash HPI HPI Comments History of Present Illness Details Barbara is a very pleasant 37 year old female who presents to the office today for evaluation and management of her lower back pain. Patient reports she has been suffering with chronic lower back pain for many years. Approx 6 weeks ago she was bent over washing her daughters hair and pain became worse. She reports pain radiates to the right hip and groin but does not radiate down the leg. She denies lower extremity weakness, numbness or tingling. Pain is worse with sitting, standing, walking and using the stairs. She has been attending PT that helps some but then she feels worsening stiffness for a day or two after each session. She has been taking NSAIDs with minimal relief. Topical patches provide some relief. PCP recently prescribed 3 days of steroids that did not relieve her pain and valium that she was taking at bedtime which helped her sleep. She states mentally/emotionally she felt better after being able to get some sleep. She has almost a months supple of valium remaining because she did not know if she should be taking daily. Recent MRI reviewed with patient, results as per below. Patient denies red flag symptoms including new loss of bowel, bladder or saddle anethesthesia. In terms of muscle damage condition is described as aching, spasming, burning and throbbing. Pain is negatively impacting patient's enjoyment of life, general activity, mood, normal work, recreational activities and sleep. [facility] Medical History Arthralgia Asthma Cryptic tonsil Dysphagia Hypothyroidism Moderate hyperemesis gravidarum Suspected COVID-19 virus infection Thyroid nodule Surgical History Previous section Social History Patient Tobacco Use Status: Current everyday Tobacco user Substance Use Type: Marijuana Current occupational status: unemployed Current occupation: Right handed Review of Systems Const All systems reviewed & are unremarkable except as noted in HPI and below Physical Exam Vital Signs: Last Vital Signs Pulse 90 01/12/23 13:11 Resp 18 01/12/23 13:11 BP 147/81 H 01/12/23 13:11 Pulse Ox 99 01/12/23 13:11 Oxygen Delivery Method Room Air 01/12/23 13:11 BMI result Body Mass Index 27.7 General: awake, alert, oriented. Answers questions appropriately. Fully engaged in examination. Skin: warm, dry, intact HEENT: Normocephalic. Hearing intact. Cardiac: External chest normal in appearance. Respiratory: No cough, audible wheezing or stridor. Abdomen: without gross distension. MS: No obvious swelling or deformities. Able to stand on bilateral tiptoes and bilateral heels.? Able to transition from sit to stand unassisted. Ambulates with bilaterally normal heel strike and toe off BLE strength 5/5 ROM flexion to 90 degrees, extension to 10 degrees Abby positive on right SLR with and without dorsiflexion negative bilaterally Facet loading positive bilaterally Tenderness to palpation midline lumbar vertebrae and lumbar paraspinal muscles Nontender to palpation over PSIS neg pain increase I/E rotation of right hip Neurological: Oriented to person, place, time and situation. Thought process intact. No gait abnormalities appreciated. Psychiatric: Appropriate mood and affect. Good judgment and insight. Results Reviewed Results Reviewed: 12/24/22 MR/MR lumbar spine wo con FINDINGS: There is reduced intradiscal signal and mild disc space narrowing at the L5-S1 level with a shallow, broad-based right paracentral disc protrusion which mildly impresses upon the right S1 nerve root. Underlying annular tear also visible. Mild facet arthropathy is also visible at this level without central canal stenosis or foraminal narrowing. The remaining imaged thoracolumbar discs are well-hydrated and normal in appearance without central canal stenosis or foraminal narrowing. No additional disc protrusions are seen. There is a small intraosseous hemangioma in the L3 vertebral body. The distal cord, conus tip, and cauda equina nerve roots are normal. The paraspinal soft tissues are unremarkable. IMPRESSION: Mild spondylosis at the L5-S1 level with a shallow, broad-based right paracentral disc protrusion mildly impressing upon the right S1 nerve root. Small underlying annular fissure/tear as well. Assessment & Plan Assessment & Plan (1) Lumbar facet arthropathy: Code(s): M47.816 - Spondylosis without myelopathy or radiculopathy, lumbar region (2) Chronic lower back pain: Code(s): M54.50 - Low back pain, unspecified; G89.29 - Other chronic pain Plan Barbara is a very pleasant 37 year old female who presents to the office today for evaluation and management of her subacute lower back pain. C/W PT as planned C/W valium and NSAIDs as prescribed Tylenol 650mg po [id number] as needed for pain. Patient states she has OTC at home and does not need a prescription. Lidocaine patches 5% topically as prescribed Discussed options for treatment including diagnostic interventional testing, epidural steroid injections, peripheral nerve stimulation with Sprint, RFA and more permanent neuromodulation. Patient offered Fluoroscopy guided bilateral diagnostic L3 L4 DR L5 MBBs with local anesthetic, she would like to continue with conservative treatment at this time. Follow up in the office in 1 month to evaluate response to current treatment plan. She will call the office for any worsening symptoms or if she wishes to proceed with injections before next scheduled follow up appt. All questions and concerns have been answered and patient agrees with the plan. Follow up in 1 month, sooner if needed. Medications: New lidocaine 5% leave on most painful area for up to 12 hrs 1 patch topical DAILY 30 ea 0RF Coding Level of Care Code New Pt Level 4 (64564) Diagnoses Lumbar facet arthropathy M47.816 Chronic lower back pain M54.50; G89.29
== END 2023-01-12 13:36 | disposition home or self-care (01) ==
PROVIDERS: PCP Internal Medicine; Referring Provider Internal Medicine; Visit Provider Registered Nurse Emergency
DX: M47.816 Spondylosis without myelopathy or radiculopathy, lumbar region (principal); M54.50 Low back pain, unspecified; G89.29 Other chronic pain
CPT/HCPCS: 99204

== ENCOUNTER → 2023-01-12 13:00 | Outpatient (BNVA) | payer MEDICAID, SELFPAY | PROVIDERS: PCP Internal Medicine; Referring Provider Internal Medicine; Visit Provider Registered Nurse Emergency | DX: M47.816 Spondylosis without myelopathy or radiculopathy, lumbar region (principal); M54.50 Low back pain, unspecified; G89.29 Other chronic pain | CPT/HCPCS: 99212 ==

== ENCOUNTER 2023-04-27 11:01 | Outpatient (REF) | payer MEDICAID, SELFPAY ==
[2023-04-27 11:17] LABS: MANUAL DIFF FLAG NO
[2023-04-27 12:49] LABS: TSH reflex Free T4 0.66 uIU/mL (0.32-4.0)
[2023-04-27 14:23] LABS: Basophils Absolute Auto 0.1 X10*3/uL (0.0-0.2); Basophils Percent Auto 0.9 % (0-2); Eosinophils Absolute Auto 0.2 X10*3/uL (0.0-0.4); Eosinophils Percent Auto 2.1 % (0-4); Hematocrit 38.1 % (37.0-47.0); Hemoglobin 12.2 g/dl (12.0-16.0); Imm Gran Abs Auto 0.03 X10*3/uL (0.00-0.03); Imm Gran Pct Auto 0.3 % (0.0-0.4); Lymphocytes Absolute Auto 2.4 X10*3/uL (1.2-4.9); Lymphocytes Percent Auto 22.9 % (20-40); Mean Corpuscular Hemoglobin 26.6 pg (27.0-33.0); Mean Corpuscular Volume 83.2 fL (80.0-98.0); Mean Platelet Volume 10.3 fL (9.4-12.3); Monocytes Absolute Auto 0.6 X10*3/uL (0.1-1.2); Monocytes Percent Auto 5.5 % (2-11); Neutrophils Absolute Auto 7.2 x10*3/uL (2.0-8.3); Neutrophils Percent Auto 68.3 % (45-73); Platelet Count 400 X10*3/uL (160-400); Red Blood Count 4.58 X10*6/uL (4.20-5.50); Red Cell Distribution Width 13.9 % (11.0-16.0); White Blood Count 10.6 X10*3/uL (4.8-10.8)
[2023-05-02 11:04] LABS: HPV mRNA E6/E7 rflx Not Detected (Not Detected)
== END 2023-04-27 11:02 | disposition home or self-care (01) ==
LOC: HO.LAB 11:01
PROVIDERS: PCP Internal Medicine; Visit Provider Advanced Practice Midwife
DX: Z01.419 Encounter for gynecological examination (general) (routine) without abnormal findings (principal); N92.0 Excessive and frequent menstruation with regular cycle
CPT/HCPCS: 36415; 84443; 85025; 87624; 88142

== ENCOUNTER 2023-07-29 11:35 | Outpatient (REF) | payer MEDICAID, SELFPAY ==
[2023-07-29 14:40] LABS: MANUAL DIFF FLAG NO
[2023-07-29 14:48] LABS: Basophils Absolute Auto 0.1 X10*3/uL (0.0-0.2); Basophils Percent Auto 0.7 % (0-2); Eosinophils Absolute Auto 0.3 X10*3/uL (0.0-0.4); Eosinophils Percent Auto 2.1 % (0-4); Hematocrit 36.6 % (37.0-47.0); Hemoglobin 12.1 g/dl (12.0-16.0); Imm Gran Abs Auto 0.05 X10*3/uL (0.00-0.03); Imm Gran Pct Auto 0.4 % (0.0-0.4); Lymphocytes Absolute Auto 2.5 X10*3/uL (1.2-4.9); Lymphocytes Percent Auto 19.2 % (20-40); Mean Corpuscular HGB Conc 33.1 g/dl (31.0-35.0); Mean Corpuscular Hemoglobin 27.1 pg (27.0-33.0); Mean Corpuscular Volume 82.1 fL (80.0-98.0); Mean Platelet Volume 10.3 fL (9.4-12.3); Monocytes Absolute Auto 0.6 X10*3/uL (0.1-1.2); Monocytes Percent Auto 4.9 % (2-11); Neutrophils Absolute Auto 9.5 x10*3/uL (2.0-8.3); Neutrophils Percent Auto 72.7 % (45-73); Platelet Count 411 X10*3/uL (160-400); Red Blood Count 4.46 X10*6/uL (4.20-5.50); Red Cell Distribution Width 14.4 % (11.0-16.0)
[2023-07-29 15:31] LABS: TSH reflex Free T4 0.42 uIU/mL (0.32-4.0)
== END 2023-07-29 11:36 | disposition home or self-care (01) ==
LOC: HO.CHCLDS 11:35
PROVIDERS: Visit Provider Internal Medicine
DX: R63.5 Abnormal weight gain (principal); I10 Essential (primary) hypertension; E03.8 Other specified hypothyroidism
CPT/HCPCS: 36415; 83735; 84443; 85025

== ENCOUNTER 2023-10-28 09:49 | Outpatient (REF) | payer MEDICAID, SELFPAY ==
[2023-10-28 15:13] LABS: Alanine Aminotransferase 35 U/L (0-31); Albumin Level 4.7 g/dL (3.5-5.0); Alkaline Phosphatase 77 U/L (39-117); Anion Gap 13 (12-20); Aspartate Amino Transferase 23 U/L (5-31); Bilirubin Total 0.6 mg/dL (0.0-1.0); Blood Urea Nitrogen 8 mg/dL (9-16); Calcium 9.6 mg/dL (8.4-10.2); Carbon Dioxide 27 mmol/L (22-29); Chloride 101 mmol/L (96-108); Cholesterol 246 mg/dL (<200); Estimated Glomerular Filt Rate > 60; Glucose Random 100 mg/dL (60-115); HDL Cholesterol 32 mg/dL (>40); LDL Cholesterol Calculated 178 mg/dL (<100); Potassium 2.7 mmol/L (3.3-5.1); Sodium 138 mmol/L (135-145); Total Protein 7.7 g/dL (6.5-8.0); Triglycerides 182 mg/dL (<150)
[2023-10-29 09:19] LABS: ~HepC Num1 0.13 S/CO (0.00-0.79); ~Hepatitis C Antibody Nonreactive (Nonreactive)
== END 2023-10-28 09:50 | disposition home or self-care (01) ==
LOC: HO.CHCLDS 09:49
PROVIDERS: Visit Provider Internal Medicine
DX: F41.1 Generalized anxiety disorder (principal); I10 Essential (primary) hypertension; R63.5 Abnormal weight gain; E66.9 Obesity, unspecified
CPT/HCPCS: 36415; 80053; 80061; 84443; 86803

== ENCOUNTER 2023-10-28 17:02 | Emergency (ER) | payer MEDICAID, SELFPAY ==
[2023-10-28 17:11] VITALS: BP 155/91; PULSE 122; RESP 16; TEMP 36.9; O2SAT 98; BMI 31.3
--- NOTE | 2023-10-28 17:11 | ECG_ITS ---
Test Reason : LOW K Blood Pressure : / mmHG Vent. Rate : 118 BPM Atrial Rate : 119 BPM P-R Int : 136 ms QRS Dur : 086 ms QT Int : 436 ms P-R-T Axes : 000 -11 054 degrees QTc Int : 611 ms Sinus tachycardia Septal infarct , age undetermined Prolonged QT Abnormal ECG When compared with ECG of 24-NOV-2020 08:03, Vent. rate has increased BY 42 BPM Nonspecific T wave abnormality, improved in Inferior leads Referred By: Crsytal Ambrose Electronically Signed By:EMELY THOMPSON
--- NOTE | 2023-10-28 17:13 | ED_ITS ---
HPI - Recheck/Abnormal Lab/Rx General Chief Complaint: Recheck/Abnormal Lab/Rx Stated Complaint: low K per dr Time Seen by Provider: 10/28/23 18:41 History of Present Illness ED Provider: Zena HATCH narrative: The patient is a 38-year-old female who had an appointment with her primary care doctor at the [facility] today to discuss chronic problems including blood pressure and weight loss and difficulty sleeping. Apparently she has been on amlodipine and hydrochlorothiazide for high blood pressure for about 8 months. She is also on levothyroxine. Additionally she takes hydroxyzine for anxiety and today was also prescribed buspirone and Wegovy. The patient had some outpatient labs today. Her basic metabolic panel came back showing a potassium of 2.7 and she was advised to come to the emergency room. The patient says that she often has a sense of her heart racing. However she has had no particular chest pain. She has no pleuritic pain. She has no sense of shortness of breath today. No pain or swelling in her legs. She is not on control or any hormonal treatment for anything. She has had a tubal ligation for control. No fever, sweats, chills. Related Data Home Medications ?Medication ?Instructions ?Recorded ?Confirmed albuterol sulfate 2 mg tablet 2 mg PO TID 01/08/20 ibuprofen 800 mg tablet 800 mg PO Q8H 01/08/20 cyclobenzaprine 10 mg tablet 10 mg PO TID 01/12/23 dexamethasone 4 mg tablet 4 mg PO QAM 01/12/23 diazepam 5 mg tablet 5 mg PO BEDTIME 01/12/23 hydrochlorothiazide 12.5 mg tablet 12.5 mg PO QAM 01/12/23 Previous Rx's ?Medication ?Instructions ?Recorded diclofenac sodium 75 mg 75 mg PO BID #60 tabs 01/22/20 tablet,delayed release levothyroxine 75 mcg capsule 75 mcg PO DAILY #30 caps 04/03/20 ibuprofen 800 mg tablet 800 mg PO Q8H PRN pain #14 tabs 10/04/20 naproxen 500 mg tablet,delayed 500 mg PO BID PRN pain #20 tabs 02/20/21 release (EC-Naproxen) lidocaine 5 % topical patch 1 patch topical DAILY #30 ea 01/12/23 potassium chloride 20 mEq 20 meq PO BID #14 tabs 10/28/23 tablet,extended release Allergies Allergy/AdvReac Type Severity Reaction Status Date / Time latex [Latex] Allergy Mild RASH Verified 10/28/23 17:13 levofloxacin [From Levaquin] Allergy Mild RASH Verified 10/28/23 17:13 LATEX Allergy Unknown rash Uncoded 10/28/23 17:13 Review of Systems 2 Review of Systems: Yes all other systems are reviewed and are negative [facility] Past Medical History Medical History Arthralgia Asthma Cryptic tonsil Dysphagia Hypothyroidism Moderate hyperemesis gravidarum Suspected COVID-19 virus infection Thyroid nodule Surgical History Previous section Social History Social History Patient Tobacco Use Status: Current everyday Tobacco user Smoked in Last 30 Days: Yes Use of substances other than those prescribed or required for medical reasons: Yes Substance Use Type: Marijuana Substance Use Frequency: Occasionally Any prior treatment program specific to substance use: No Advance Directives: No Advance Directives Information Provided: No Patient : No Current occupational status: unemployed Current occupation: Right handed Physical Exam 2 Vital Signs: Vital Signs: Last Vital Signs Temp 98.6 F 10/28/23 21:41 Pulse 94 10/28/23 21:41 Resp 20 10/28/23 21:41 BP 114/63 10/28/23 21:41 Pulse Ox 96 10/28/23 21:41 O2 Del Method Room Air 10/28/23 21:41 BMI result Body Mass Index 31.3 Const: Other: The patient is awake, alert, pleasant, cooperative. She does not seem in acute distress. She has a somewhat anxious affect. HEENT: Head: Yes normal to inspection Face and sinus: Yes normal facial exam Mouth: Normal oral and palatal mucosa present and moist mucous membranes Throat: Yes posterior oropharynx normal Eyes: General: appearance normal, both eyes and all related structures C onjunctivae: conjunctivae normal Pupils: Equal, round and reactive pupils present EOM: EOMs intact bilaterally Neck: Neck: Yes full ROM and Yes no lymphadenopathy Resp: Effort & Inspection: normal respiratory effort Auscultation: clear to auscultation bilaterally Cardio: Rate: tachycardic Rhythm: regular rhythm Heart sounds: S1 normal heart sound present and S2 normal heart sound present GI: Other: Abdomen is soft and nontender Skin: Other: Skin is dry and unremarkable General skin exam: no rashes or lesions noted Neuro: Other: The patient is awake and alert with a normal mental status and normal cognition. Cranial nerves are grossly intact. She moves her extremities normally and seems grossly neurologically intact. Cranial nerves: Yes Equal, round and reactive pupils present Extrem: Other: No calf swelling or tenderness. No asymmetry. No edema. Course Course Course Narrative: This is a Rapid Medical Examination (RME) performed by Kelsi Ambrose PA-C in triage. Full HPI, ROS, assessment and treatment plan per primary provider in the Main ED. 38 yo female here for eval of low potassium. Had routine labs drawn recently by CP, was called today stating for potassium was low (2.7). Was advised to come to the ED for further evaluation. Patient reports for the past few months she has felt fatigued. admits to recent episodes of vomiting and diarrhea. no abd pain. denies chest pain, palpitations, sob. + tachycardic to 120s. Otherwise well-appearing. Plan: labs, ekg Medications Administered Discontinued Medications Generic Name Dose Route Start Last Admin Trade Name Freq PRN Reason Stop Dose Admin Lactated Ringer's 1,000 mls @ 999 mls/hr 10/28/23 19:00 10/28/23 20:47 Lr IV 10/28/23 20:00 Infused .Q1H1M SALVATORE Infusion Potassium Chloride 40 meq 10/28/23 18:52 10/28/23 19:13 Potassium Chloride Er 20 Meq Tab.Er.Prt PO 10/28/23 18:53 40 meq ONCE ONE Administration Medical Decision Making Medical Decision Making [facility] Narrative: The patient is a 38-year-old woman who was seen at her primary care doctor's office to discuss some chronic issues. Outpatient labs were done that came back and showed a potassium of 2.7. The patient was called and told that she should come to the emergency room because of this very low potassium level. The patient is on hydrochlorothiazide and amlodipine for blood pressure. The patient is tachycardic. She says that she has some sense of palpitations in her chest and a racing heartbeat but she does not have any chest pain, pleuritic pain or any sense of shortness of breath or any respiratory difficulties of any kind. The patient has a white blood count of 17.8, hemoglobin 12.3, and a platelet count of 413. Differential shows 74% neutrophils, 18% lymphocytes. CRP slightly elevated at 1.1. Renal function is normal. TSH drawn this morning was 1.7. The patient arrived at the emergency room because she has been told to come here by her primary care doctor's office because of a potassium of 2.7. Somewhat surprisingly she is quite tachycardic. Also she has a high white count. Both of these findings seemed to be somewhat incidental to her presenting complaint. I suspect her hypokalemia is likely a result of her use of hydrochlorothiazide. Given the absence of any pleuritic symptoms or respiratory symptoms and given the absence of any findings suggestive of a possible DVT I do not think the patient's tachycardia is likely to be indicative of a possible pulmonary embolism and therefore do not feel this needs to be pursued. The patient has a high white count but she denies any symptoms of illness that could suggest an infectious process. Given her CRP is only 1.1 and she has been afebrile I suspect that the high white count is a stress response rather than an indicator of infection. The patient was given 40 mEq of extended release potassium chloride. The patient was also given 1 L of IV lactated Ringer's. Her heart rate came down to 95. A repeat EKG shows an improved QT interval. Her QTC on a 2nd EKG was 510. Since the patient looks well and was essentially asymptomatic in the emergency room I felt she could be discharged. She is advised to eat some bananas when she gets home. I have advised her to stop taking her hydrochlorothiazide as I suspect this is the reason for her hypokalemia. I have sent a prescription for supplemental oral potassium tablets. She should contact her regular doctor to discuss follow up with regard to her hypokalemia and to stopping hydrochlorothiazide. She should return to the emergency room if she feels worse. Lab Data 10/28/23 17:47 10/28/23 17:47 Labs: Lab Results 10/28/23 Range/Units 17:47 WBC 17.8 H (4.8-10.8) X10*3/uL RBC 4.50 (4.20-5.50) X10*6/uL Hgb 12.3 (12.0-16.0) g/dl Hct 36.3 L (37.0-47.0) % MCV 80.7 (80.0-98.0) fL MCH 27.3 (27.0-33.0) pg MCHC 33.9 (31.0-35.0) g/dl RDW 14.1 (11.0-16.0) % Plt Count 413 H (160-400) X10*3/uL MPV 9.9 (9.4-12.3) fL Immature Gran % (Auto) 0.4 (0.0-0.4) % Neut % (Auto) 74.1 H (45-73) % Lymph % (Auto) 18.4 L (20-40) % Garden % (Auto) 5.0 (2-11) % Eos % (Auto) 1.6 (0-4) % Baso % (Auto) 0.5 (0-2) % Lymph # (Auto) 3.3 (1.2-4.9) X10*3/uL Garden # (Auto) 0.9 (0.1-1.2) X10*3/uL Eos # (Auto) 0.3 (0.0-0.4) X10*3/uL Baso # (Auto) 0.1 (0.0-0.2) X10*3/uL Abs Immat Gran (auto) 0.07 H (0.00-0.03) X10*3/uL Absolute Neuts (auto) 13.2 H (2.0-8.3) x10*3/uL Absolute Nucleated RBC 0.000 (0.0-0.012) X10*3/uL Nucleated RBC % (auto) 0.0 (0.0-0.2) /100WBC Sodium 138 (135-145) mmol/L Potassium 2.8 L* (3.3-5.1) mmol/L Chloride 100 (96-108) mmol/L Carbon Dioxide 28 (22-29) mmol/L Anion Gap 13 (12-20) BUN 9 (9-16) mg/dL Creatinine 0.77 (0.5-1.4) mg/dL Estim Creat Clear Calc 95.5 Estimated GFR > 60 Random Glucose 124 H (60-115) mg/dL Calcium 9.7 (8.4-10.2) mg/dL Magnesium 2.2 (1.6-2.6) mg/dL Total Bilirubin 0.3 (0.0-1.0) mg/dL AST 20 (5-31) U/L ALT 31 (0-31) U/L Alkaline Phosphatase 77 (39-117) U/L C-Reactive Protein 1.10 H (< or = 0.50) mg/dL Total Protein 7.4 (6.5-8.0) g/dL Albumin 4.5 (3.5-5.0) g/dL Influenza Type A (PCR) NEGATIVE (Negative) Influenza Type B (PCR) NEGATIVE (Negative) RSV RNA Qual (PCR) NEGATIVE (Negative) SARS-CoV-2 RNA (RT-PCR) NEGATIVE (Negative) Independent Interpretation I performed an independent interpretation of an: EKG Interpretation: EKG at 17:34 shows sinus tachycardia at 118 beats per minute. There was a prolonged QT interval of 611 Discharge Plan Discharge Clinical Impression: Hypokalemia Patient Disposition: Home, Self-Care Instructions: Potassium Content of Foods List (ED) Additional Instructions: Your potassium level was low today. I suspect this is because of the hydrochlorothiazide you have been taking. I think you should therefore stop taking the hydrochlorothiazide. I have sent a prescription for some potassium supplementation to your pharmacy. You may start taking this tomorrow. Tonight I would eat two bananas when you get home. Please look at the list of potassium in foods and eat foods high in potassium for the next couple of days. Please contact your regular doctor tomorrow morning to check in. Please explain that I advised against continuing the hydrochlorothiazide. My hope is that you will get prompt follow up with your doctor for a repeat potassium level sometime next week and for discussion about alternative blood pressure medications. Return to the emergency room if you feel significantly worse. Prescriptions: New potassium chloride 20 mEq tablet extended release 20 meq PO BID Qty: 14 0RF No Action diclofenac sodium 75 mg tablet,delayed release (DR/EC) 75 mg PO BID Qty: 60 2RF levothyroxine 75 mcg capsule 75 mcg PO DAILY Qty: 30 0RF ibuprofen 800 mg tablet 800 mg PO Q8H PRN (Reason: pain) Qty: 14 0RF naproxen [EC-Naproxen] 500 mg tablet,delayed release (DR/EC) 500 mg PO BID PRN (Reason: pain) Qty: 20 0RF albuterol sulfate 2 mg tablet 2 mg PO TID ibuprofen 800 mg tablet 800 mg PO Q8H diazepam 5 mg tablet 5 mg PO BEDTIME dexamethasone 4 mg tablet 4 mg PO QAM hydrochlorothiazide 12.5 mg tablet 12.5 mg PO QAM cyclobenzaprine 10 mg tablet 10 mg PO TID lidocaine 5 % adhesive patch,medicated 1 patch topical DAILY Qty: 30 0RF Rx Instructions: leave on most painful area for up to 12 hrs Referrals: De Bryant MD [Primary Care Provider] - (Hypokalemia) Interventions: ED Discharge Assessment Last Done: 10/28/23 21:41 Discharge Date/Time: 10/28/23 21:40 Print Language: Eritrean
[2023-10-28 17:58] LABS: MANUAL DIFF FLAG NO
[2023-10-28 18:15] LABS: Basophils Absolute Auto 0.1 X10*3/uL (0.0-0.2); Basophils Percent Auto 0.5 % (0-2); Eosinophils Absolute Auto 0.3 X10*3/uL (0.0-0.4); Eosinophils Percent Auto 1.6 % (0-4); Hematocrit 36.3 % (37.0-47.0); Hemoglobin 12.3 g/dl (12.0-16.0); Imm Gran Abs Auto 0.07 X10*3/uL (0.00-0.03); Imm Gran Pct Auto 0.4 % (0.0-0.4); Lymphocytes Absolute Auto 3.3 X10*3/uL (1.2-4.9); Lymphocytes Percent Auto 18.4 % (20-40); Mean Corpuscular HGB Conc 33.9 g/dl (31.0-35.0); Mean Corpuscular Hemoglobin 27.3 pg (27.0-33.0); Mean Corpuscular Volume 80.7 fL (80.0-98.0); Mean Platelet Volume 9.9 fL (9.4-12.3); Monocytes Absolute Auto 0.9 X10*3/uL (0.1-1.2); Neutrophils Absolute Auto 13.2 x10*3/uL (2.0-8.3); Neutrophils Percent Auto 74.1 % (45-73); Platelet Count 413 X10*3/uL (160-400); Red Cell Distribution Width 14.1 % (11.0-16.0); White Blood Count 17.8 X10*3/uL (4.8-10.8)
[2023-10-28 18:29] LABS: Alanine Aminotransferase 31 U/L (0-31); Albumin Level 4.5 g/dL (3.5-5.0); Alkaline Phosphatase 77 U/L (39-117); Anion Gap 13 (12-20); Aspartate Amino Transferase 20 U/L (5-31); Bilirubin Total 0.3 mg/dL (0.0-1.0); Blood Urea Nitrogen 9 mg/dL (9-16); Calcium 9.7 mg/dL (8.4-10.2); Carbon Dioxide 28 mmol/L (22-29); Chloride 100 mmol/L (96-108); Creatinine Clr Calc Pharmacy 95.5; Estimated Glomerular Filt Rate > 60; Glucose Random 124 mg/dL (60-115); Magnesium 2.2 mg/dL (1.6-2.6); Potassium 2.8 mmol/L (3.3-5.1); Sodium 138 mmol/L (135-145); Total Protein 7.4 g/dL (6.5-8.0)
[2023-10-28 18:57] LABS: Influenza A PCR NEGATIVE (Negative); Influenza B PCR NEGATIVE (Negative); Resp Syncy Virus RNA Qual PCR NEGATIVE (Negative); SARS COV2 PCR INHOUSE NEGATIVE (Negative)
[2023-10-28] MEDS: Potassium Chloride ER 20 MEQ TAB.ER.PRT 40 MEQ PO (19:13)
[2023-10-28] MEDS: Lactated Ringers 1,000 ML 999 ML IV (19:14)
[2023-10-28 19:24] VITALS: RESP 18; O2SAT 100
[2023-10-28 19:26] VITALS: BP 142/87; PULSE 111; RESP 20; TEMP 36.8; O2SAT 97
--- NOTE | 2023-10-28 19:32 | PC.NURSE ---
This RN assumed care of pt at 1900, IV line placed #20 R-AC placed, IV fluids running and PO klor con administered per orders. VS complete, call [facility] within reach pt denies any pain no complaints at this time.
--- NOTE | 2023-10-28 20:54 | ECG_ITS ---
Test Reason : HYPOKALEMIA Blood Pressure : / mmHG Vent. Rate : 095 BPM Atrial Rate : 095 BPM P-R Int : 162 ms QRS Dur : 086 ms QT Int : 406 ms P-R-T Axes : 069 -14 038 degrees QTc Int : 510 ms Normal sinus rhythm Nonspecific ST and T wave abnormality Abnormal ECG When compared with ECG of 28-OCT-2023 17:34, No significant change was found Referred By: Jimy Freitas Electronically Signed By:EMELY THOMPSON
--- NOTE | 2023-10-28 21:04 | MHC.EDTECH ---
Late entry,this tech took over care of patient at 1900,rounds completed,vitals taken by RN,patient ambulated to the bathroom with a steady gait,repeat EKG taken at 2053 per doctors order,call [facility] within reach
[2023-10-28 21:41] VITALS: BP 114/63; PULSE 94; RESP 20; TEMP 37; O2SAT 96
== END 2023-10-28 21:40 | disposition home or self-care (01) ==
PROVIDERS: Physician Assistant Medical; Emergency Provider Emergency Medicine; PCP Internal Medicine
DX: E87.6 Hypokalemia (principal); R00.0 Tachycardia, unspecified; R79.89 Other specified abnormal findings of blood chemistry; R11.0 Nausea; F17.210 Nicotine dependence, cigarettes, uncomplicated; Z03.818 Encounter for observation for suspected exposure to other biological agents ruled out; Z79.899 Other long term (current) drug therapy
CPT/HCPCS: 0241U; 36415; 80053; 83735; 85025; 86140; 93005; 96360; 96361; 99284; 99285; J7120

== ENCOUNTER 2023-11-08 13:02 | Outpatient (REF) | payer MEDICAID, SELFPAY ==
[2023-11-08 14:54] LABS: Anion Gap 12 (12-20); Blood Urea Nitrogen 7 mg/dL (9-16); Calcium 9.2 mg/dL (8.4-10.2); Carbon Dioxide 24 mmol/L (22-29); Chloride 106 mmol/L (96-108); Estimated Glomerular Filt Rate > 60; Glucose Random 94 mg/dL (60-115); Potassium 3.2 mmol/L (3.3-5.1); Sodium 139 mmol/L (135-145)
== END 2023-11-08 13:03 | disposition home or self-care (01) ==
LOC: HO.CHCLDS 13:02
PROVIDERS: Visit Provider Internal Medicine
DX: E87.5 Hyperkalemia (principal)
CPT/HCPCS: 36415; 80048

== ENCOUNTER 2023-11-17 09:20 | Outpatient (REF) | payer MEDICAID, SELFPAY ==
[2023-11-17 15:14] LABS: Anion Gap 12 (12-20); Blood Urea Nitrogen 6 mg/dL (9-16); Calcium 9.5 mg/dL (8.4-10.2); Carbon Dioxide 22 mmol/L (22-29); Chloride 106 mmol/L (96-108); Estimated Glomerular Filt Rate > 60; Glucose Random 84 mg/dL (60-115); Potassium 3.8 mmol/L (3.3-5.1); Sodium 136 mmol/L (135-145)
== END 2023-11-17 09:21 | disposition home or self-care (01) ==
LOC: HO.CHCLDS 09:20
PROVIDERS: Visit Provider Internal Medicine
DX: E87.6 Hypokalemia (principal)
CPT/HCPCS: 36415; 80048

== ENCOUNTER 2024-02-23 06:22 | Emergency (ER) | payer MEDICAID, SELFPAY ==
[2024-02-23] VITALS (8 sets, daily range): BP systolic 123–152; BP diastolic 85–94; PULSE 64–98; RESP 15–25; TEMP 35.3–36.7; O2SAT 97–98; BMI 25.0
--- NOTE | ~2024-02-23 | CT_ITS ---
EXAMINATION: CT ABDOMEN AND PELVIS WITH CONTRAST CLINICAL INFORMATION: Upper abdominal pain and tenderness. COMPARISON: None available. TECHNIQUE: Multidetector volumetric images were obtained from the superior aspect of the liver through the pubic symphysis following administration 85 mL of Omnipaque 350 intravenous contrast. Sagittal and coronal reformatted images were obtained on the technologist's workstation. Oral contrast: No This CT examination was performed using dose optimization techniques as appropriate, variously including the following: *Automated exposure control *Adjustment of mA and/or kV according to patient size (this includes techniques or standardized protocols for targeted exams where dose is matched to indication/reason for exam; i.e. extremities or head) *Use of iterative reconstruction technique DLP: 411 mGy-cm FINDINGS: LUNG BASES: The lung bases appear clear, with no evidence of inflammation or nodules. LIVER, GALLBLADDER, AND BILIARY TREE: The liver appears unremarkable in size, shape, and attenuation. No focal hepatic lesion or biliary ductal dilatation is appreciated. Unremarkable appearance of the gallbladder. PANCREAS: Unremarkable SPLEEN: Unremarkable ADRENAL GLANDS: Unremarkable KIDNEYS AND URETERS: Subcentimeter benign bilateral simple renal cysts for which no further dedicated follow-up imaging as indicated. The kidneys otherwise appear unremarkable in size, shape, and attenuation. No hydronephrosis, hydroureter, or calculi seen. BLADDER: Unremarkable GASTROINTESTINAL TRACT: The small and large bowel appear unremarkable. No diverticulosis. Normal-appearing distal ileum and vermiform appendix. ABDOMINAL WALL: No significant hernia is appreciated. LYMPH NODES: No evidence of adenopathy by size criteria. VASCULAR: Unremarkable PELVIC VISCERA: Unremarkable OSSEOUS STRUCTURES: L3 benign hemangioma. CT/CT abdomen pelvis w IV con IMPRESSION: No significant abnormal finding. Electronically signed by: Guanako Lindsey MD 02/23/2024 09:43 AM EST
[2024-02-23] MEDS: ondansetron HCL 4 MG/2 ML VIAL IVPUSH ×2 (06:41→08:12)
[2024-02-23 06:48] LABS: MANUAL DIFF FLAG NO
--- NOTE | 2024-02-23 07:01 | ED.GENADULT ---
HPI - General Adult General Chief complaint: Abdominal Pain Stated complaint: abd pain Time Seen by Provider: 02/23/24 07:01 History of Present Illness ED Provider: Zena HATCH narrative: The patient is a 39-year-old female who says that she has been having worsening severe abdominal pain for about 2 days. She says that yesterday she felt it in the left lower quadrant. Today she feels it more in the upper abdomen. She says that she recently changed her dose of Wegovy and wonders whether this might be responsible for this severe pain she is having. She says the pain is very severe at find a comfortable position. Related Data Home Medications ?Medication ?Instructions ?Recorded ?Confirmed albuterol sulfate 2 mg tablet 2 mg PO TID 01/08/20 ibuprofen 800 mg tablet 800 mg PO Q8H 01/08/20 cyclobenzaprine 10 mg tablet 10 mg PO TID 01/12/23 dexamethasone 4 mg tablet 4 mg PO QAM 01/12/23 diazepam 5 mg tablet 5 mg PO BEDTIME 01/12/23 hydrochlorothiazide 12.5 mg tablet 12.5 mg PO QAM 01/12/23 Previous Rx's ?Medication ?Instructions ?Recorded diclofenac sodium 75 mg 75 mg PO BID #60 tabs 01/22/20 tablet,delayed release levothyroxine 75 mcg capsule 75 mcg PO DAILY #30 caps 04/03/20 ibuprofen 800 mg tablet 800 mg PO Q8H PRN pain #14 tabs 10/04/20 naproxen 500 mg tablet,delayed 500 mg PO BID PRN pain #20 tabs 02/20/21 release (EC-Naproxen) lidocaine 5 % topical patch 1 patch topical DAILY #30 ea 01/12/23 potassium chloride 20 mEq 20 meq PO BID #14 tabs 10/28/23 tablet,extended release famotidine 40 mg tablet 40 mg PO DAILY #14 tabs 02/23/24 morphine 15 mg immediate release 15 mg PO Q6H PRN pain #12 tabs 02/23/24 tablet ondansetron 4 mg disintegrating 4 mg PO Q6H PRN nausea and 02/23/24 tablet vomiting #12 tabs Allergies Allergy/AdvReac Type Severity Reaction Status Date / Time latex [Latex] Allergy Mild RASH Verified 02/23/24 06:30 levofloxacin [From Levaquin] Allergy Mild RASH Verified 02/23/24 06:30 LATEX Allergy Unknown rash Uncoded 02/23/24 06:30 Review of Systems Review of Systems: Yes all other systems are reviewed and are negative [facility] Past Medical History Medical History Arthralgia Asthma Cryptic tonsil Dysphagia Hypothyroidism Moderate hyperemesis gravidarum Suspected COVID-19 virus infection Thyroid nodule Surgical History Previous section Social History Social History Patient Tobacco Use Status: Current everyday Tobacco user Smoked in Last 30 Days: No Use of substances other than those prescribed or required for medical reasons: No Substance Use Type: Marijuana Advance Directives: No Advance Directives Information Provided: Yes Do you have a plan to hurt others: No Plan Patient : No Current occupational status: unemployed Current occupation: Right handed Physical Exam ED Vital Signs: Vital Signs - 24 hr 02/23/24 06:27 02/23/24 07:32 02/23/24 08:10 Temperature 95.6 F L 97.7 F Pulse Rate 98 67 Respiratory Rate 20 16 25 H Blood Pressure 152/94 H 141/86 H Pulse Oximetry 98 97 Oxygen Delivery Method Room Air Room Air 02/23/24 08:11 02/23/24 08:15 02/23/24 09:44 Temperature 98.0 F 97.5 F Pulse Rate 64 67 Respiratory Rate 25 H 22 H 16 Blood Pressure 136/87 142/93 H Pulse Oximetry 98 98 Oxygen Delivery Method Room Air Room Air 02/23/24 12:00 02/23/24 13:34 Temperature 97.9 F 97.9 F Pulse Rate 67 67 Respiratory Rate 15 18 Blood Pressure 123/85 123/85 Pulse Oximetry 98 98 Oxygen Delivery Method Room Air Room Air BMI result Body Mass Index 25.0 Const Other: The patient was awake and alert. She was standing clutching her abdomen and looked severely uncomfortable. She seemed restless with discomfort. HENMT Other: Face was symmetrical. Mucous membranes moist. Eyes Other: Pupils are round equal, conjunctivae clear, extraocular movements intact. Neck Other: Moving her neck easily Resp Effort & Inspection: normal respiratory effort Auscultation: clear to auscultation bilaterally Cardio Rate: regular rate Rhythm: regular rhythm Heart sounds: S1 normal heart sound present and S2 normal heart sound present GI Other: The patient is tender across the upper abdomen mostly in the epigastrium. Skin Other: Skin is pale and dry Neuro Other: The patient is awake and alert with a normal mental status. Cranial nerves are grossly intact. She moves her extremities normally and appropriately. Extrem Other: No peripheral edema Medications Administered Discontinued Medications Generic Name Dose Route Start Last Admin Trade Name Freq PRN Reason Stop Dose Admin Diphenhydramine HCl 25 mg 02/23/24 07:06 02/23/24 07:14 Diphenhydramine Hcl 50 Mg/Ml Vial IVPUSH 02/23/24 07:07 25 mg ONCE ONE Administration Diphenhydramine HCl 50 mg 02/23/24 09:46 02/23/24 09:54 Diphenhydramine Hcl 50 Mg/Ml Vial IVPUSH 02/23/24 09:47 50 mg ONCE ONE Administration Famotidine 20 mg 02/23/24 07:35 02/23/24 08:12 Famotidine/Pf 20 Mg/2 Ml Vial IVPUSH 02/23/24 07:36 20 mg ONCE ONE Administration Sodium Chloride 1,000 mls @ 999 mls/hr 02/23/24 07:15 02/23/24 08:50 Ns IV 02/23/24 08:15 Infused .Q1H1M SALVATORE Infusion Sodium Chloride 1,000 mls @ 999 mls/hr 02/23/24 11:45 02/23/24 12:56 Ns IV 02/23/24 12:45 Infused .Q1H1M SALVATORE Infusion Ketorolac Tromethamine 10 mg 02/23/24 11:42 02/23/24 11:48 Ketorolac Tromethamine 15 Mg/Ml Vial IVPUSH 02/23/24 11:43 10 mg ONCE ONE Administration Metoclopramide HCl 10 mg 02/23/24 09:46 02/23/24 09:53 Metoclopramide Hcl 10 Mg/2 Ml Vial IVPUSH 02/23/24 09:47 10 mg ONCE ONE Administration Morphine Sulfate 4 mg 02/23/24 07:06 02/23/24 07:14 Morphine Sulfate 4 Mg/Ml Cartridge IVPUSH 02/23/24 07:07 4 mg ONCE ONE Administration Protocol Morphine Sulfate 4 mg 02/23/24 07:35 02/23/24 08:11 Morphine Sulfate 4 Mg/Ml Cartridge IVPUSH 02/23/24 07:36 4 mg ONCE ONE Administration Protocol Morphine Sulfate 15 mg 02/23/24 12:02 02/23/24 12:09 Morphine Sulfate Immed Release 15 Mg Tablet PO 02/23/24 12:03 15 mg ONCE ONE Administration Ondansetron HCl 4 mg 02/23/24 06:38 02/23/24 06:41 Ondansetron Hcl 4 Mg/2 Ml Vial IVPUSH 02/23/24 06:39 4 mg ONCE ONE Administration Ondansetron HCl 4 mg 02/23/24 07:35 02/23/24 08:12 Ondansetron Hcl 4 Mg/2 Ml Vial IVPUSH 02/23/24 07:36 4 mg ONCE ONE Administration Medical Decision Making Medical Decision Making [facility] Narrative: The patient is a 39-year-old female who presents with the acute abdominal pain. The abdominal pain seems to be quite generalized and mostly in the upper abdomen. The patient looked quite restless with discomfort. She was treated with morphine for her pain. She had a workup that included a CT scan of the abdomen and pelvis. Her workup was nondiagnostic. She does not seem to have any acute surgical process. I suspect that her pain may be related to her Wegovy treatment. Sometimes treatment with a Wegovy can cause unusual episodes of significant abdominal pain. The patient was treated with IV fluids and pain medications and observed for several hours. She seemed to get somewhat better but was still complaining of pain. She will be discharged with a prescription for morphine tablets and ondansetron. She should stay in touch with your regular doctor. Lab Data 02/23/24 06:36 02/23/24 06:36 Labs: Lab Results 02/23/24 02/23/24 Range/Units 06:36 11:33 WBC 15.4 H (4.8-10.8) X10*3/uL RBC 5.07 (4.20-5.50) X10*6/uL Hgb 14.1 (12.0-16.0) g/dl Hct 40.3 (37.0-47.0) % MCV 79.5 L (80.0-98.0) fL MCH 27.8 (27.0-33.0) pg MCHC 35.0 (31.0-35.0) g/dl RDW 14.9 (11.0-16.0) % Plt Count 528 H D (160-400) X10*3/uL MPV 10.1 (9.4-12.3) fL Immature Gran % (Auto) 0.3 (0.0-0.4) % Neut % (Auto) 70.6 (45-73) % Lymph % (Auto) 21.5 (20-40) % Long % (Auto) 5.1 (2-11) % Eos % (Auto) 1.4 (0-4) % Baso % (Auto) 1.1 (0-2) % Lymph # (Auto) 3.3 (1.2-4.9) X10*3/uL Long # (Auto) 0.8 (0.1-1.2) X10*3/uL Eos # (Auto) 0.2 (0.0-0.4) X10*3/uL Baso # (Auto) 0.2 (0.0-0.2) X10*3/uL Abs Immat Gran (auto) 0.04 H (0.00-0.03) X10*3/uL Absolute Neuts (auto) 10.9 H (2.0-8.3) x10*3/uL Absolute Nucleated RBC 0.000 (0.0-0.012) X10*3/uL Nucleated RBC % (auto) 0.0 (0.0-0.2) /100WBC Sodium 140 (135-145) mmol/L Potassium 3.2 L (3.3-5.1) mmol/L Chloride 107 (96-108) mmol/L Carbon Dioxide 20 L (22-29) mmol/L Anion Gap 16 (12-20) BUN 9 (9-16) mg/dL Creatinine 0.79 (0.5-1.4) mg/dL Estim Creat Clear Calc 86.0 Estimated GFR > 60 Random Glucose 121 H (60-115) mg/dL Calcium 9.7 (8.4-10.2) mg/dL Total Bilirubin 0.7 (0.0-1.0) mg/dL AST 20 (5-31) U/L ALT 17 (0-31) U/L Alkaline Phosphatase 75 (39-117) U/L C-Reactive Protein 0.51 H (< or = 0.50) mg/dL Total Protein 7.8 (6.5-8.0) g/dL Albumin 4.9 (3.5-5.0) g/dL Lipase 13 (8-78) U/L Beta HCG, Quant < 2 mIU/mL Urine Color Yellow Urine Appearance Clear Urine pH 8.5 (5.0-9.0) Ur Specific [place] >= 1.030 H (1.005-1.025) Urine Protein Negative (Neg-Trace) mg/dL Urine Glucose (UA) Negative (Negative) mg/dL Urine Ketones 40 (Negative) mg/dL Urine Blood Small (1+) H (Negative) Urine Nitrite Negative (Negative) Ur Leukocyte Esterase Negative (Negative) Urine RBC >20 H (0-2) /HPF Urine WBC 6-10 H (0-5) /HPF Ur Squamous Epith Cells 3-5 (0-2) /HPF Urine Bacteria None Seen (None Seen) Hyaline Casts 0-2 (0-2) /LPF Discharge Plan Discharge Clinical Impression: Abdominal pain Patient Disposition: Home, Self-Care Additional Instructions: Your testing in the emergency room today is reassuring. There does not seem to be any acute surgical process or other acute medical process. I suspect that this pain you were experiencing may be a side effect of the Wegovy. Please plan on resting and taking it easy for the next couple of days. Reducing acid production in your stomach may help your pain. Therefore please take the famotidine prescribed once a day. In addition you may take 2 extra-strength acetaminophen (Tylenol) up to 3 times a day as needed. Additionally you can use ibuprofen if you feel it is helpful. Also I have sent a prescription for morphine tablets that you may use when the pain is very severe. For nausea you may use the ondansetron (Zofran) which has been sent to the pharmacy. This is a medication that can just dissolve in your mouth. You do not have to swallow it for to be absorbed. Please contact your regular doctor tomorrow to discuss how you are doing. Return to the emergency room if you feel significantly worse. Prescriptions: New ondansetron 4 mg tablet,disintegrating 4 mg PO Q6H PRN (Reason: nausea and vomiting) Qty: 12 0RF morphine 15 mg tablet 15 mg PO Q6H PRN (Reason: pain) Qty: 12 0RF Rx Instructions: Partial Fill upon patient request. famotidine 40 mg tablet 40 mg PO DAILY Qty: 14 0RF No Action diclofenac sodium 75 mg tablet,delayed release (DR/EC) 75 mg PO BID Qty: 60 2RF levothyroxine 75 mcg capsule 75 mcg PO DAILY Qty: 30 0RF ibuprofen 800 mg tablet 800 mg PO Q8H PRN (Reason: pain) Qty: 14 0RF naproxen [EC-Naproxen] 500 mg tablet,delayed release (DR/EC) 500 mg PO BID PRN (Reason: pain) Qty: 20 0RF potassium chloride 20 mEq tablet extended release 20 meq PO BID Qty: 14 0RF albuterol sulfate 2 mg tablet 2 mg PO TID ibuprofen 800 mg tablet 800 mg PO Q8H diazepam 5 mg tablet 5 mg PO BEDTIME dexamethasone 4 mg tablet 4 mg PO QAM hydrochlorothiazide 12.5 mg tablet 12.5 mg PO QAM cyclobenzaprine 10 mg tablet 10 mg PO TID lidocaine 5 % adhesive patch,medicated 1 patch topical DAILY Qty: 30 0RF Rx Instructions: leave on most painful area for up to 12 hrs Referrals: De Bryant MD [Primary Care Provider] - (Abdominal pain, possibly related to Wegovy use) Interventions: ED Discharge Assessment Last Done: 02/23/24 13:34 Discharge Date/Time: 02/23/24 13:34 Print Language: [place]an
[2024-02-23 07:06] LABS: Alanine Aminotransferase 17 U/L (0-31); Albumin Level 4.9 g/dL (3.5-5.0); Alkaline Phosphatase 75 U/L (39-117); Anion Gap 16 (12-20); Aspartate Amino Transferase 20 U/L (5-31); Bilirubin Total 0.7 mg/dL (0.0-1.0); Blood Urea Nitrogen 9 mg/dL (9-16); Calcium 9.7 mg/dL (8.4-10.2); Carbon Dioxide 20 mmol/L (22-29); Chloride 107 mmol/L (96-108); Estimated Glomerular Filt Rate > 60; Glucose Random 121 mg/dL (60-115); Lipase 13 U/L (8-78); Potassium 3.2 mmol/L (3.3-5.1); Sodium 140 mmol/L (135-145); Total Protein 7.8 g/dL (6.5-8.0)
[2024-02-23 07:12] LABS: Basophils Absolute Auto 0.2 X10*3/uL (0.0-0.2); Basophils Percent Auto 1.1 % (0-2); Eosinophils Absolute Auto 0.2 X10*3/uL (0.0-0.4); Eosinophils Percent Auto 1.4 % (0-4); Hematocrit 40.3 % (37.0-47.0); Hemoglobin 14.1 g/dl (12.0-16.0); Imm Gran Abs Auto 0.04 X10*3/uL (0.00-0.03); Imm Gran Pct Auto 0.3 % (0.0-0.4); Lymphocytes Absolute Auto 3.3 X10*3/uL (1.2-4.9); Lymphocytes Percent Auto 21.5 % (20-40); Mean Corpuscular Hemoglobin 27.8 pg (27.0-33.0); Mean Corpuscular Volume 79.5 fL (80.0-98.0); Mean Platelet Volume 10.1 fL (9.4-12.3); Monocytes Absolute Auto 0.8 X10*3/uL (0.1-1.2); Monocytes Percent Auto 5.1 % (2-11); Neutrophils Absolute Auto 10.9 x10*3/uL (2.0-8.3); Neutrophils Percent Auto 70.6 % (45-73); Platelet Count 528 X10*3/uL (160-400); Red Blood Count 5.07 X10*6/uL (4.20-5.50); Red Cell Distribution Width 14.9 % (11.0-16.0); White Blood Count 15.4 X10*3/uL (4.8-10.8)
[2024-02-23] MEDS: 0.9 % Sodium Chloride 1,000 ML 999 ML IV ×2 (07:13→11:51)
[2024-02-23] MEDS: diphenhydrAMINE HCL 50 MG/ML VIAL 25 MG IVPUSH (07:14)
[2024-02-23] MEDS: Morphine Sulfate 4 MG/ML CARTRIDGE IVPUSH ×2 (07:14→08:11)
[2024-02-23 07:57] LABS: C Reactive Protein 0.51 mg/dL (< or = 0.50)
[2024-02-23] MEDS: Famotidine/PF 20 MG/2 ML VIAL IVPUSH (08:12)
[2024-02-23 08:42] LABS: HCG Quantitative < 2 mIU/mL
[2024-02-23] MEDS: Metoclopramide HCl 10 MG/2 ML VIAL IVPUSH (09:53)
[2024-02-23] MEDS: diphenhydrAMINE HCL 50 MG/ML VIAL IVPUSH (09:54)
[2024-02-23 11:41] LABS: Appearance Urine Clear; Color Urine Yellow; Glucose Urine UA Negative (Negative); Leukocyte Esterase Urine Negative (Negative); Nitrite Urine Negative (Negative); PH 8.5 (5.0-9.0); Specific Gravity - Urine >= 1.030 (1.005-1.025); UMIC TRIGGER UACC YES; Urine Blood Small (1+) (Negative); Urine Ketones 40 mg/dL (Negative); Urine Protein Negative (Neg-Trace)
[2024-02-23 11:46] LABS: Bacteria Urine None Seen (None Seen); Hyaline Casts Urine 0-2 /LPF (0-2); RBC Urine >20 /HPF (0-2); UACC Culture Trigger YES
[2024-02-23] MEDS: Ketorolac Tromethamine 15 MG/ML VIAL 10 MG IVPUSH (11:48)
[2024-02-23] MEDS: Morphine Sulfate Immed Release 15 MG TABLET PO (12:09)
== END 2024-02-23 13:34 | disposition home or self-care (01) ==
PROVIDERS: Emergency Provider Emergency Medicine; PCP Internal Medicine
DX: R10.2 Pelvic and perineal pain (principal); R10.32 Left lower quadrant pain; R11.2 Nausea with vomiting, unspecified; Z79.899 Other long term (current) drug therapy; F17.210 Nicotine dependence, cigarettes, uncomplicated
CPT/HCPCS: 36415; 74177; 80053; 81001; 83690; 84702; 85025; 86140; 87086; 87088; 96361; 96374; 96375; 96376; 99285; J1200; J1885; J2270; J2405; J2765

== ENCOUNTER 2024-02-25 06:14 | Inpatient (IN) | payer MEDICAID, SELFPAY ==
[2024-02-25] VITALS (8 sets, daily range): BP systolic 114–135; BP diastolic 63–87; PULSE 57–79; RESP 15–20; TEMP 36.3–37.4; O2SAT 92–99; BMI 26.3; BMI 41.7; BMI 29.4
--- NOTE | ~2024-02-25 | CT_ITS ---
EXAMINATION: CT ABDOMEN AND PELVIS WITH CONTRAST CLINICAL INFORMATION: 39-year-old female complaining of nausea, vomiting, and abdominal pain. COMPARISON: CT abdomen and pelvis 02/23/2024. TECHNIQUE: Multidetector volumetric images were obtained from the superior aspect of the liver through the pubic symphysis following administration 85 mL of Omnipaque 350 intravenous contrast. Sagittal and coronal reformatted images were obtained on the technologist's workstation. Oral contrast: Yes This CT examination was performed using dose optimization techniques as appropriate, variously including the following: *Automated exposure control *Adjustment of mA and/or kV according to patient size (this includes techniques or standardized protocols for targeted exams where dose is matched to indication/reason for exam; i.e. extremities or head) *Use of iterative reconstruction technique DLP: 421 mGy-cm FINDINGS: LUNG BASES: Aside from minimal dependent atelectasis, lung bases are clear. Heart size is normal. No effusions. LIVER, GALLBLADDER, AND BILIARY TREE: The liver is normal in size, shape, and attenuation. No focal hepatic lesion or biliary ductal dilatation is present. The gallbladder is unremarkable with no evidence of radiopaque gallstones, gallbladder wall thickening, or obvious pericholecystic inflammatory changes. PANCREAS: Unremarkable. SPLEEN: Unremarkable. ADRENAL GLANDS: Unremarkable. KIDNEYS AND URETERS: The kidneys are normal in size, shape, and attenuation. No hydronephrosis, hydroureter, or calculi seen. No perinephric stranding. BLADDER: Unremarkable. GASTROINTESTINAL TRACT: -Of note, there is mild wall thickening of the cecum, ascending colon, and the majority of the transverse colon to the splenic flexure. Findings suggest a mild segmental colitis in the appropriate clinical setting. No surrounding or colonic inflammation or hyperemia. -Remainder of the GI tract is normal in appearance. A normal appendix is visualized. ABDOMINAL WALL: -Normal in appearance. No hernia. LYMPH NODES: Normal. VASCULAR: Unremarkable. PELVIC VISCERA: The uterus and adnexa are unremarkable. OSSEOUS STRUCTURES: No suspicious lytic or blastic bone lesion. L3 hemangioma again noted. CT/CT abdomen pelvis w IV con IMPRESSION: 1. Mild perceived wall thickening of the cecum, ascending colon, the majority of the transverse colon. Findings could represent a mild segmental infectious/inflammatory colitis in the appropriate clinical setting. Alternatively, findings could be spurious from underdistention. No pericolonic inflammation or hyperemia is present. 2. The remainder of the examination is normal. Fleischner guidelines were followed. Electronically signed by: El Lama MD 02/25/2024 01:45 PM [facility]
[2024-02-25 06:45] LABS: MANUAL DIFF FLAG NO
[2024-02-25 07:02] LABS: Alanine Aminotransferase 26 U/L (0-31); Albumin Level 5.1 g/dL (3.5-5.0); Alkaline Phosphatase 72 U/L (39-117); Anion Gap 17 (12-20); Aspartate Amino Transferase 24 U/L (5-31); Bilirubin Total 0.7 mg/dL (0.0-1.0); Blood Urea Nitrogen 22 mg/dL (9-16); Calcium 9.7 mg/dL (8.4-10.2); Carbon Dioxide 26 mmol/L (22-29); Chloride 101 mmol/L (96-108); Creatinine Clr Calc Pharmacy 77.4; Estimated Glomerular Filt Rate > 60; Glucose Random 152 mg/dL (60-115); Lipase 9 U/L (8-78); Potassium 3.1 mmol/L (3.3-5.1); Sodium 141 mmol/L (135-145); Total Protein 7.9 g/dL (6.5-8.0)
[2024-02-25 07:11] LABS: Basophils Absolute Auto 0.1 X10*3/uL (0.0-0.2); Basophils Percent Auto 0.3 % (0-2); Hematocrit 39.5 % (37.0-47.0); Hemoglobin 13.5 g/dl (12.0-16.0); Imm Gran Pct Auto 0.5 % (0.0-0.4); Lymphocytes Absolute Auto 2.2 X10*3/uL (1.2-4.9); Mean Corpuscular HGB Conc 34.2 g/dl (31.0-35.0); Mean Corpuscular Hemoglobin 27.6 pg (27.0-33.0); Mean Corpuscular Volume 80.6 fL (80.0-98.0); Mean Platelet Volume 10.9 fL (9.4-12.3); Monocytes Absolute Auto 0.7 X10*3/uL (0.1-1.2); Neutrophils Absolute Auto 15.5 x10*3/uL (2.0-8.3); Neutrophils Percent Auto 83.2 % (45-73); Platelet Count 509 X10*3/uL (160-400); White Blood Count 18.6 X10*3/uL (4.8-10.8)
[2024-02-25 07:23] LABS: Influenza A PCR NEGATIVE (Negative); Influenza B PCR NEGATIVE (Negative); Resp Syncy Virus RNA Qual PCR NEGATIVE (Negative); SARS COV2 PCR INHOUSE NEGATIVE (Negative)
--- NOTE | 2024-02-25 08:52 | ED_ITS ---
HPI - Abdominal Pain General Chief Complaint: Abdominal Pain Stated Complaint: abd pain Time Seen by Provider: 02/25/24 08:35 Source: patient Mode of arrival: ambulatory Limitations: no limitations History of Present Illness HPI narrative: This is a 39 years old presented complaining of abdominal pain nausea vomiting she was seen in the emergency room on February 22 she was given fluids pain medicine CT was negative she is on wegovi dose was increased recently MD elicited complaint: abdominal pain Pertinent past history: none Onset (ago): day(s) (3) Pain Consistency: constant Location: epigastric Quality: cramping Radiation: none Migration to: no migration Exacerbating factors: nothing Relieving factors: nothing Related Data Home Medications ?Medication ?Instructions ?Recorded ?Confirmed albuterol sulfate 2 mg tablet 2 mg PO TID 01/08/20 ibuprofen 800 mg tablet 800 mg PO Q8H 01/08/20 cyclobenzaprine 10 mg tablet 10 mg PO TID 01/12/23 dexamethasone 4 mg tablet 4 mg PO QAM 01/12/23 diazepam 5 mg tablet 5 mg PO BEDTIME 01/12/23 hydrochlorothiazide 12.5 mg tablet 12.5 mg PO QAM 01/12/23 buspirone 5 mg tablet 5 mg PO BID 02/25/24 hydroxyzine pamoate 50 mg capsule 50 mg PO Q8H PRN itch 02/25/24 semaglutide (weight loss) 1.7 1.7 mg subcut QWEEK 02/25/24 mg/0.75 mL subcutaneous pen injector (Juancarlos) Previous Rx's ?Medication ?Instructions ?Recorded diclofenac sodium 75 mg 75 mg PO BID #60 tabs 01/22/20 tablet,delayed release levothyroxine 75 mcg capsule 75 mcg PO DAILY #30 caps 04/03/20 ibuprofen 800 mg tablet 800 mg PO Q8H PRN pain #14 tabs 10/04/20 naproxen 500 mg tablet,delayed 500 mg PO BID PRN pain #20 tabs 02/20/21 release (EC-Naproxen) lidocaine 5 % topical patch 1 patch topical DAILY #30 ea 01/12/23 potassium chloride 20 mEq 20 meq PO BID #14 tabs 10/28/23 tablet,extended release famotidine 40 mg tablet 40 mg PO DAILY #14 tabs 02/23/24 morphine 15 mg immediate release 15 mg PO Q6H PRN pain #12 tabs 02/23/24 tablet ondansetron 4 mg disintegrating 4 mg PO Q6H PRN nausea and 02/23/24 tablet vomiting #12 tabs Allergies Allergy/AdvReac Type Severity Reaction Status Date / Time latex [Latex] Allergy Mild RASH Verified 02/25/24 06:24 levofloxacin [From Levaquin] Allergy Mild RASH Verified 02/25/24 06:24 LATEX Allergy Unknown rash Uncoded 02/25/24 06:24 Review of Systems Constitutional: Reports no additional constitutional complaints Cardiovascular: Reports no additional cardiovascular complaints Gastrointestinal: Reports abdominal pain PMFSH Past Medical History Attestation statement: The following information was validated with the patient. Source: unable to obtain Medical History Arthralgia Dysphagia Moderate hyperemesis gravidarum Cryptic tonsil Thyroid nodule Hypothyroidism Asthma Suspected COVID-19 virus infection Surgical History Previous section Social History Social History Patient Tobacco Use Status: Current everyday Tobacco user Substance Use Type: Marijuana Advance Directives: No Advance Directives Information Provided: No Do you have a plan to hurt others: No Plan Current occupational status: unemployed Current occupation: Right handed Physical Exam ED Vital Signs: Vital Signs - 24 hr 02/25/24 06:24 02/25/24 08:26 02/25/24 10:12 Temperature 97.4 F 98.0 F 97.4 F Pulse Rate 76 75 79 Respiratory Rate 20 18 17 Blood Pressure 114/84 121/87 Pulse Oximetry 95 97 99 Oxygen Delivery Method Room Air Room Air Room Air 02/25/24 14:57 02/25/24 15:23 Temperature 97.3 F Pulse Rate 57 Respiratory Rate 15 18 Blood Pressure 126/77 Pulse Oximetry 92 Oxygen Delivery Method Room Air BMI result Body Mass Index 26.3 Const General: cooperative Nutritional Appearance: well nourished Orientation/consciousness: patient oriented x3 HENMT Head: Yes normal to inspection General nose exam: Normal external nose present Face and sinus: Yes normal facial exam Mouth: Normal oral and palatal mucosa present Teeth and gingiva: dentition normal Neck Neck: Yes normal visual inspection Chest Chest palpation & inspection: normal inspection of the chest Resp Effort & Inspection: normal respiratory effort Auscultation: clear to auscultation bilaterally Cardio Jugular venous distension: no JVD Rate: regular rate GI Inspection: Yes normal to inspection Palpation (GI): Soft to palpation, not firm, nontender and no guarding Percussion: Yes normal to percussion Auscultation: normal bowel sounds Skin General skin exam: no rashes or lesions noted and elasticity normal Rashes: no rashes Neuro General: patient oriented x3 Extrem General: Yes normal to inspection Course Reevaluation(s) Reevaluation #1: waiting for ct result Time: 13:40 Reevaluation #2: Re-examination at this time see complaining of pain no better this is a 2nd trip to the emergency department in a few days, continued to have pain CT showed the possible colitis I think it is very reasonable to admit the patient for pain control perhaps antibiotic Time: 14:53 Medical Decision Making Medical Decision Making MDM Narrative: Patient presented to the emergency room with a chief complaint of abdominal pain, we will get Differential Diagnosis Differential Diagnoses: The differential diagnosis associated with the presentation includes Gastritis /peptic ulcer disease /colitis/medication side effect Admission/Observation Consideration of admission/observation: Escalation of care including admission/observation considered Lab Data MDM Lab Attestation statement: I reviewed the patient's lab results. 02/25/24 06:38 02/25/24 06:38 Labs: Lab Results 02/25/24 Range/Units 06:38 WBC 18.6 H (4.8-10.8) X10*3/uL RBC 4.90 (4.20-5.50) X10*6/uL Hgb 13.5 (12.0-16.0) g/dl Hct 39.5 (37.0-47.0) % MCV 80.6 (80.0-98.0) fL MCH 27.6 (27.0-33.0) pg MCHC 34.2 (31.0-35.0) g/dl RDW 15.0 (11.0-16.0) % Plt Count 509 H (160-400) X10*3/uL MPV 10.9 (9.4-12.3) fL Immature Gran % (Auto) 0.5 H (0.0-0.4) % Neut % (Auto) 83.2 H (45-73) % Lymph % (Auto) 12.0 L (20-40) % [place] % (Auto) 4.0 (2-11) % Eos % (Auto) 0.0 (0-4) % Baso % (Auto) 0.3 (0-2) % Lymph # (Auto) 2.2 (1.2-4.9) X10*3/uL [place] # (Auto) 0.7 (0.1-1.2) X10*3/uL Eos # (Auto) 0.0 (0.0-0.4) X10*3/uL Baso # (Auto) 0.1 (0.0-0.2) X10*3/uL Abs Immat Gran (auto) 0.10 H (0.00-0.03) X10*3/uL Absolute Neuts (auto) 15.5 H (2.0-8.3) x10*3/uL Absolute Nucleated RBC 0.000 (0.0-0.012) X10*3/uL Nucleated RBC % (auto) 0.0 (0.0-0.2) /100WBC Sodium 141 (135-145) mmol/L Potassium 3.1 L (3.3-5.1) mmol/L Chloride 101 (96-108) mmol/L Carbon Dioxide 26 (22-29) mmol/L Anion Gap 17 (12-20) BUN 22 H (9-16) mg/dL Creatinine 0.83 (0.5-1.4) mg/dL Estim Creat Clear Calc 77.4 Estimated GFR > 60 Random Glucose 152 H (60-115) mg/dL Calcium 9.7 (8.4-10.2) mg/dL Total Bilirubin 0.7 (0.0-1.0) mg/dL AST 24 (5-31) U/L ALT 26 (0-31) U/L Alkaline Phosphatase 72 (39-117) U/L Total Protein 7.9 (6.5-8.0) g/dL Albumin 5.1 H (3.5-5.0) g/dL Lipase 9 (8-78) U/L Beta HCG, Quant < 2 mIU/mL Influenza Type A (PCR) NEGATIVE (Negative) Influenza Type B (PCR) NEGATIVE (Negative) RSV RNA Qual (PCR) NEGATIVE (Negative) SARS-CoV-2 RNA (RT-PCR) NEGATIVE (Negative) Medications Administered Discontinued Medications Generic Name Dose Route Start Last Admin Trade Name Dede PRN Reason Stop Dose Admin Diatrizoate Meglum/Diatrizoate Sod 30 ml 02/25/24 12:38 02/25/24 12:39 Diatrizoate Meglumine, Sodium 30 Ml Solution PO 02/25/24 12:39 30 ml ONCE ONE Administration Hydromorphone HCl 0.5 mg 02/25/24 08:50 02/25/24 09:23 Hydromorphone Hcl 0.5 Mg/0.5 Ml Syringe IVPUSH 02/25/24 08:51 0.5 mg ONCE ONE Administration Protocol Hydromorphone HCl 0.5 mg 02/25/24 10:52 02/25/24 11:05 Hydromorphone Hcl 0.5 Mg/0.5 Ml Syringe IVPUSH 02/25/24 10:53 0.5 mg ONCE ONE Administration Protocol Hydromorphone HCl 0.5 mg 02/25/24 14:56 02/25/24 14:57 Hydromorphone Hcl 0.5 Mg/0.5 Ml Syringe IVPUSH 02/25/24 14:57 0.5 mg ONCE ONE Administration Protocol Sodium Chloride 1,000 mls @ 999 mls/hr 02/25/24 09:00 02/25/24 10:56 Ns IVCONT 02/25/24 10:00 Infused .Q1H1M SALVATORE Infusion Sodium Chloride 1,000 mls @ 999 mls/hr 02/25/24 14:45 02/25/24 14:44 Ns IVCONT 02/25/24 15:45 999 mls/hr .Q1H1M SALVATORE Administration Metronidazole 500 mg in 100 mls @ 100 mls/hr 02/25/24 14:38 02/25/24 14:59 Flagyl IV 02/25/24 15:37 100 mls/hr ONCE ONE Administration Iohexol 85 ml 02/25/24 12:37 02/25/24 12:38 Iohexol 350 Mg/Ml 75 Ml Infus..Btl IV 02/25/24 12:38 85 ml ONCE ONE Administration Ondansetron HCl 4 mg 02/25/24 14:34 02/25/24 14:44 Ondansetron Hcl 4 Mg/2 Ml Vial IVPUSH 02/25/24 14:35 4 mg ONCE ONE Administration Discharge Plan Discharge Clinical Impression: Colitis Abdominal pain Qualifiers: Abdominal location: unspecified location Qualified Code(s): R10.9 - Unspecified abdominal pain Leukocytosis Qualifiers: Leukocytosis type: unspecified Qualified Code(s): D72.829 - Elevated white blood cell count, unspecified Patient Disposition: Admitted As Inpatient Print Language: [place]ian
[2024-02-25] MEDS: 0.9 % Sodium Chloride 1,000 ML 999 ML IVCONT ×2 (09:22→14:44)
[2024-02-25] MEDS: HYDROmorphone HCl 0.5 MG/0.5 ML SYRINGE IVPUSH ×3 (09:23→14:57)
[2024-02-25 09:51] LABS: HCG Quantitative < 2 mIU/mL
--- NOTE | 2024-02-25 10:48 | PC.NURSE ---
unable to tolerate PO contrast, states it is making her nauseous and increasing her abodminal pain
[2024-02-25] MEDS: iohexoL 350 MG/ML 75 ML INFUS..BTL 85 ML IV (12:38)
[2024-02-25] MEDS: Diatrizoate Meglumine, Sodium 30 ML SOLUTION PO (12:39)
[2024-02-25] MEDS: ondansetron HCL 4 MG/2 ML VIAL IVPUSH ×2 (14:44→20:43)
[2024-02-25] MEDS: metroNIDAZOLE/NS 500 MG/100 ML PIGGYBACK 100 MG IV (14:59)
[2024-02-25 16:09] LABS: Magnesium 2.6 mg/dL (1.6-2.6)
--- NOTE | 2024-02-25 16:11 | PM.IMHP ---
History of Present Illness Date of Service: 02/25/24 Attending physician on admission: Julio Cesar Duncan Chief Complaint: abdominal pain This is a 39-year-old female with history of hypertension who presents to the emergency department with abdominal pain. Patient was initially seen in the emergency department on February 22 with abdominal pain. At that time it was thought to be secondary to a recent dose increase of Wegovy. Her CT scan of abdomen and pelvis was negative at that time. She was sent home with pain medication. She reports persistent abdominal pain, nausea, vomiting. She has had decreased oral intake since Wednesday. She returned to the emergency department today due to her persistent pain and inability to take anything oral. In the emergency department white count had increased to 18.[address] scan of the abdomen mild thickening of the cecum, ascending colon, majority of the transverse colon consistent with possible mild segmental infectious/inflammatory colitis. She does report a history of recurrent colitis in the past, she had colonoscopy more than 5 years ago which was reportedly normal. She has no diagnosis of ulcerative colitis or Crohn's disease. She denies any associated rectal bleeding. She does have intermittent constipation. She will be admitted for further management of colitis Review of Systems Review of Systems: Yes all other systems are reviewed and are negative Constitutional: Constitutional: Reports chills and Denies fever(s) Cardiovascular: Cardiovascular: Denies chest pain Gastrointestinal: Gastrointestinal: Reports abdominal pain, Denies diarrhea, Reports nausea and Reports vomiting [facility] Medical History Arthralgia Dysphagia Moderate hyperemesis gravidarum Cryptic tonsil Thyroid nodule Hypothyroidism Asthma Suspected COVID-19 virus infection Surgical History Previous section Social History Household Members: Family Housing: House Do you presently have visiting nurse or other home services: No Patient Tobacco Use Status: Current everyday Tobacco user Cigarettes Per Day: 10 Patient Interested in Nicotine Replacement: No Patient Given Instructions on How to Stop Smoking: No Use of substances other than those prescribed or required for medical reasons: Yes Substance Use Type: Marijuana Currently Displaying Signs/Symptoms of Drug Intoxication Withdrawal: No Do you feel safe in your current relationship?: Yes Advance Directives: No Advance Directives Information Provided: No Do you have a plan to hurt others: No Plan Patient : No : No Poor oral hygiene: No Current occupational status: unemployed Current occupation: Right handed Meds Allergies Allergy/AdvReac Type Severity Reaction Status Date / Time latex [Latex] Allergy Mild RASH Verified 02/25/24 16:59 levofloxacin [From Levaquin] Allergy Mild RASH Verified 02/25/24 16:59 LATEX Allergy Unknown rash Uncoded 02/25/24 16:59 Active Medications: Current Medications Acetaminophen (Acetaminophen 325 Mg Tablet) 650 mg PO Q6H PRN PRN Reason: Pain, Mild 1-3,fever,headache Calcium Carbonate (Calcium Carbonate 750 Mg Tab.Chew) 750 mg PO Q4H PRN PRN Reason: Heartburn Enoxaparin Sodium (Enoxaparin Sodium 40 Mg/0.4 Ml Syringe) 40 mg SUBCUT Q24H [facility] Potassium Chloride/Sodium Chloride (Kcl 40 Meq In 0.9 % Sodium Chl) 40 meq in 1,000 mls @ 100 mls/hr IVCONT .Q10H [facility] Stop: 02/26/24 01:59 Piperacillin Sod/Tazobactam (Sod 3.375 gm/ Sodium Chloride) 50 mls @ 100 mls/hr IV Q6H [facility] Melatonin (Melatonin 3 Mg Tablet) 6 mg PO BEDTIME PRN PRN Reason: Insomnia Morphine Sulfate (Morphine Sulfate 4 Mg/Ml Cartridge) 4 mg IVPUSH Q4H PRN; Protocol PRN Reason: Pain, Severe (Pain Scale 7-10) Ondansetron HCl (Ondansetron Hcl 4 Mg/2 Ml Vial) 4 mg IVPUSH Q8H PRN PRN Reason: Nausea and Vomiting Polyethylene Glycol (Polyethylene Glycol 3350 17 Gm Powd.Pack) 17 gm PO DAILY PRN PRN Reason: Constipation Sodium Chloride (0.9 % Sodium Chloride Flush 3 Ml Syringe) 3 ml IVFLUSH QSHIFT [facility] Home Medications ?Medication ?Instructions ?Recorded ?Confirmed ?Last Taken ?Type albuterol sulfate 2 mg tablet 2 mg PO TID 01/08/20 Unknown History ibuprofen 800 mg tablet 800 mg PO Q8H 01/08/20 Unknown History cyclobenzaprine 10 mg tablet 10 mg PO TID 01/12/23 Unknown History dexamethasone 4 mg tablet 4 mg PO QAM 01/12/23 Unknown History diazepam 5 mg tablet 5 mg PO BEDTIME 01/12/23 Unknown History hydrochlorothiazide 12.5 mg tablet 12.5 mg PO QAM 01/12/23 Unknown History buspirone 5 mg tablet 5 mg PO BID 02/25/24 Unknown History hydroxyzine pamoate 50 mg capsule 50 mg PO Q8H PRN itch 02/25/24 Unknown History semaglutide (weight loss) 1.7 1.7 mg subcut QWEEK 02/25/24 Unknown History mg/0.75 mL subcutaneous pen injector (Ranjanvchema) Physical Exam Vital Signs and Narrative: Vital Signs: Last Vital Signs Temp 97.3 F 02/25/24 15:23 Pulse 57 02/25/24 15:23 Resp 18 02/25/24 15:23 BP 126/77 02/25/24 15:23 Pulse Ox 92 02/25/24 15:23 O2 Del Method Room Air 02/25/24 15:23 BMI result Body Mass Index 26.3 Results Labs 02/25/24 06:38 02/25/24 06:38 Labs: Laboratory Results - last 24 hr 02/25/24 06:38 MCV 80.6 MCH 27.6 MCHC 34.2 RDW 15.0 Plt Count 509 H MPV 10.9 Immature Gran % (Auto) 0.5 H Neut % (Auto) 83.2 H Lymph % (Auto) 12.0 L [place] % (Auto) 4.0 Eos % (Auto) 0.0 Baso % (Auto) 0.3 Lymph # (Auto) 2.2 [place] # (Auto) 0.7 Eos # (Auto) 0.0 Baso # (Auto) 0.1 Abs Immat Gran (auto) 0.10 H Absolute Neuts (auto) 15.5 H Absolute Nucleated RBC 0.000 Nucleated RBC % (auto) 0.0 Anion Gap 17 Estim Creat Clear Calc 77.4 Estimated GFR > 60 Random Glucose 152 H Calcium 9.7 Magnesium 2.6 Total Bilirubin 0.7 AST 24 ALT 26 Alkaline Phosphatase 72 Total Protein 7.9 Albumin 5.1 H Lipase 9 Beta HCG, Quant < 2 Influenza Type A (PCR) NEGATIVE Influenza Type B (PCR) NEGATIVE RSV RNA Qual (PCR) NEGATIVE SARS-CoV-2 RNA (RT-PCR) NEGATIVE Imaging Radiologist's Impressions: Impressions Abdomen/Pelvis CT 02/25/24 12:27 IMPRESSION: 1. Mild perceived wall thickening of the cecum, ascending colon, the majority of the transverse colon. Findings could represent a mild segmental infectious/inflammatory colitis in the appropriate clinical setting. Alternatively, findings could be spurious from underdistention. No pericolonic inflammation or hyperemia is present. 2. The remainder of the examination is normal. Fleischner guidelines were followed. Electronically signed by: El Lama MD 02/25/2024 01:45 PM [facility] and Plan (1) Colitis: Status: Acute Plan This is a 39-year-old female with history of hypertension, anxiety, hypothyroidism who presents to the emergency department with abdominal pain found to have colitis abdominal pain likely due to Acute colitis Dose have elevated white count but does not meet SIRS criteria, No evidence of sepsis. elevated white count does seem to have some chronicity IV Zosyn, IV fluid, antiemetics, pain control Given history of recurrent colitis will obtain GI consult will start clear liquid diet and advance as tolerated has been on wegovy since october for weight loss, has caused some nausea Hypokalemia Likely due to decreased p.o. intake unable to take po due to nausea and vomiting, will add to IVF check magnesium follow BMP hypothyroidism resume Synthroid when med rec complete Hypertension Resume home medications when med rec complete mood continue baseline meds when med rec complete med rec pending at the time of admission DVT prophylaxis-Lovenox Patient requires ongoing inpatient stay for management of acute colitis requiring multiple doses of IV narcotic medication for adequate pain control, inability to take p.o., IV antibiotics Quality Stroke Does the patient have a stroke diagnosis?: No VTE Prior VTE?: No VTE Risk Level:: Medical - moderate - high VTE Device Contraindication: N/A - Device Ordered VTE Drug Contraindication: N/A - Med Ordered
[2024-02-25] MEDS: Famotidine/PF 20 MG/2 ML VIAL IVPUSH (16:13)
[2024-02-25] MEDS: Enoxaparin Sodium 40 MG/0.4 ML SYRINGE SUBCUT (16:13)
[2024-02-25] MEDS: 0.9 % Sodium Chloride Flush 3 ML SYRINGE IVFLUSH (16:14)
[2024-02-25] MEDS: Piperacillin Sodium/Tazobactam 3.375 GM in 0.9 % Sodium Chloride 50 ML IV ×2 (16:20→23:16)
[2024-02-25] MEDS: Morphine Sulfate 4 MG/ML CARTRIDGE IVPUSH ×2 (17:30→21:52)
[2024-02-25] MEDS: KCl 40 mEq in 0.9 % Sodium Chl 40 MEQ/1,000 ML IV.SOLN 100 MEQ IVCONT (17:30)
--- NOTE | 2024-02-25 17:57 | PHA.MEDREC ---
Pharmacy Consult ? Medication Reconciliation Pharmacy has completed the medication reconciliation. Spoke with patient at bedside, she states she stopped taking all her meds except Amlodipine, Buspirone, Levothyroxine, and her Ventolin inhaler
[2024-02-25] MEDS: HYDROmorphone HCl 0.5 MG/0.5 ML SYRINGE IM (23:33)
[2024-02-26] MEDS: 0.9 % Sodium Chloride Flush 3 ML SYRINGE IVFLUSH ×2 (01:56→07:45)
[2024-02-26] MEDS: Morphine Sulfate 4 MG/ML CARTRIDGE IVPUSH ×2 (01:56→07:44)
[2024-02-26] MEDS: Piperacillin Sodium/Tazobactam 3.375 GM in 0.9 % Sodium Chloride 50 ML IV ×2 (03:40→11:05)
[2024-02-26 03:48] VITALS: BP 122/75; PULSE 50; RESP 18; TEMP 36.8; O2SAT 97
[2024-02-26] MEDS: HYDROmorphone HCl 0.5 MG/0.5 ML SYRINGE IM (04:50)
[2024-02-26 06:25] LABS: MANUAL DIFF FLAG NO
[2024-02-26 06:53] LABS: Anion Gap 10 (12-20); Blood Urea Nitrogen 8 mg/dL (9-16); Calcium 7.9 mg/dL (8.4-10.2); Carbon Dioxide 24 mmol/L (22-29); Chloride 111 mmol/L (96-108); Creatinine Clr Calc Pharmacy 98.4; Estimated Glomerular Filt Rate > 60; Glucose Random 86 mg/dL (60-115); Potassium 3.3 mmol/L (3.3-5.1); Sodium 142 mmol/L (135-145)
[2024-02-26 06:56] LABS: Basophils Absolute Auto 0.1 X10*3/uL (0.0-0.2); Eosinophils Absolute Auto 0.1 X10*3/uL (0.0-0.4); Eosinophils Percent Auto 0.6 % (0-4); Hemoglobin 11.3 g/dl (12.0-16.0); Imm Gran Abs Auto 0.04 X10*3/uL (0.00-0.03); Imm Gran Pct Auto 0.3 % (0.0-0.4); Lymphocytes Absolute Auto 3.4 X10*3/uL (1.2-4.9); Lymphocytes Percent Auto 30.1 % (20-40); Mean Corpuscular HGB Conc 33.2 g/dl (31.0-35.0); Mean Corpuscular Hemoglobin 27.6 pg (27.0-33.0); Mean Corpuscular Volume 82.9 fL (80.0-98.0); Monocytes Absolute Auto 0.9 X10*3/uL (0.1-1.2); Monocytes Percent Auto 8.1 % (2-11); Neutrophils Absolute Auto 6.8 x10*3/uL (2.0-8.3); Neutrophils Percent Auto 59.9 % (45-73); Platelet Count 367 X10*3/uL (160-400); Red Cell Distribution Width 15.7 % (11.0-16.0); White Blood Count 11.4 X10*3/uL (4.8-10.8)
[2024-02-26 07:33] VITALS: BP 125/60; PULSE 51; RESP 16; TEMP 36.2; O2SAT 98
[2024-02-26] MEDS: Levothyroxine Sodium 100 MCG TABLET PO (07:44)
[2024-02-26] MEDS: ondansetron HCL 4 MG/2 ML VIAL IVPUSH (07:44)
[2024-02-26] MEDS: busPIRone HCl 5 MG TABLET PO ×2 (07:44→20:56)
--- NOTE | 2024-02-26 09:45 | MHC.CM.PN ---
PT REPORTS SHE LIVES WITH HER AND TWO KIDS SHE IS INDEPENDENT WITH CARE AND HAS NO DME SHE IS NOT INTERESTED IN COMPLETING A HCP PCP: RADHA VIZCAINO DCP: HOME VIA PRIVATE TRANSPORT
--- NOTE | 2024-02-26 10:55 | P.CNGI_ITS ---
History of Present Illness Data of Consult Service Date: 02/26/24 Requesting physician: Adia Gibson Primary Care Provider: De Bryant MD [facility] Reason for consult: Colitis This is a 39-year-old female who presented to the hospital for abdominal pain, nausea, vomiting and diarrhea. Patient was initially seen in the ER on 02/22 for left-sided abdominal pain which at that time was attributed to increase in dose of Wegovy. Workup at that point was negative for any acute process. She was discharged from the emergency room with reassurance. However, she returned yesterday for persistent pain, vomiting, decreased p.o. intake. Workup this time showed rising leukocytosis compared to previous, with CT abdomen pelvis demonstrating right-sided colitis. Patient herself reports no diarrhea. In fact has constipation and only had one BM on wednesday. Is passing flatus. Main complaint is severe upper and lower abd pain with nausea and multiple episodes of vomiting. She does report improvement in N/V since coming in. As noted above, on GLP 1 but lipase normal x 2. Review of Systems 2 Review of Systems: Yes all other systems are reviewed and are negative [facility] Past Medical History Medical History Arthralgia Dysphagia Moderate hyperemesis gravidarum Cryptic tonsil Thyroid nodule Hypothyroidism Asthma Suspected COVID-19 virus infection Surgical History Surgical History Previous section Social History Social History Household Members: Family Housing: House Do you presently have visiting nurse or other home services: No Patient Tobacco Use Status: Current everyday Tobacco user Cigarettes Per Day: 10 Patient Interested in Nicotine Replacement: No Patient Given Instructions on How to Stop Smoking: No Use of substances other than those prescribed or required for medical reasons: Yes Substance Use Type: Marijuana Currently Displaying Signs/Symptoms of Drug Intoxication Withdrawal: No Do you feel safe in your current relationship?: Yes Advance Directives: No Advance Directives Information Provided: No Do you have a plan to hurt others: No Plan Patient : No : No Poor oral hygiene: No service: No Current occupational status: unemployed Current occupation: Right handed Meds Allergies Allergy/AdvReac Type Severity Reaction Status Date / Time latex [Latex] Allergy Mild RASH Verified 02/25/24 16:59 levofloxacin [From Levaquin] Allergy Mild RASH Verified 02/25/24 16:59 LATEX Allergy Unknown rash Uncoded 02/25/24 16:59 Active Medications: Current Medications Acetaminophen (Acetaminophen 325 Mg Tablet) 650 mg PO Q6H PRN PRN Reason: Pain, Mild 1-3,fever,headache Albuterol Sulfate (Albuterol Sulfate 90 Mcg 8 Gm Inhaler) 1 puff INHALE QID PRN PRN Reason: Wheezing Buspirone HCl (Buspirone Hcl 5 Mg Tablet) 5 mg PO BID [facility] Last Admin: 02/26/24 07:44 Dose: 5 mg Calcium Carbonate (Calcium Carbonate 750 Mg Tab.Chew) 750 mg PO Q4H PRN PRN Reason: Heartburn Enoxaparin Sodium (Enoxaparin Sodium 40 Mg/0.4 Ml Syringe) 40 mg SUBCUT Q24H [facility] Last Admin: 02/25/24 16:13 Dose: 40 mg Famotidine (Famotidine/Pf 20 Mg/2 Ml Vial) 20 mg IVPUSH DAILY [facility] Hydromorphone HCl (Hydromorphone Hcl 0.5 Mg/0.5 Ml Syringe) 0.5 mg IVPUSH Q4H PRN; Protocol PRN Reason: Pain, Severe (Pain Scale 7-10) Piperacillin Sod/Tazobactam (Sod 3.375 gm/ Sodium Chloride) 50 mls @ 100 mls/hr IV Q6H [facility] Last Infusion: 02/26/24 04:43 Dose: Infused Lactated Ringer's (Lr) 1,000 mls @ 100 mls/hr IVCONT .Q10H [facility] Levothyroxine Sodium (Levothyroxine Sodium 100 Mcg Tablet) 100 mcg PO DAILY@0600 [facility] Last Admin: 02/26/24 07:44 Dose: 100 mcg Melatonin (Melatonin 3 Mg Tablet) 6 mg PO BEDTIME PRN PRN Reason: Insomnia Ondansetron HCl (Ondansetron Hcl 4 Mg/2 Ml Vial) 4 mg IVPUSH Q8H PRN PRN Reason: Nausea and Vomiting Last Admin: 02/26/24 07:44 Dose: 4 mg Polyethylene Glycol (Polyethylene Glycol 3350 17 Gm Powd.Pack) 17 gm PO DAILY PRN PRN Reason: Constipation Sodium Chloride (0.9 % Sodium Chloride Flush 3 Ml Syringe) 3 ml IVFLUSH QSHIFT [facility] Last Admin: 02/26/24 07:45 Dose: 3 ml Home Medications ?Medication ?Instructions ?Recorded ?Confirmed ?Last Taken ?Type albuterol sulfate 90 mcg/actuation 1 inh inhalation QID PRN Wheezing 02/25/24 02/25/24 02/21/24 History aerosol inhaler (Ventolin HFA) amlodipine 10 mg tablet 10 mg PO QAM 02/25/24 02/25/24 02/21/24 History buspirone 5 mg tablet 5 mg PO BID 02/25/24 02/25/24 Unknown History levothyroxine 100 mcg tablet 100 mcg PO DAILY 02/25/24 02/25/24 02/21/24 History Physical Exam 2 Vital Signs: Vital Signs: Last Vital Signs Temp 97.1 F 02/26/24 07:33 Pulse 51 02/26/24 07:33 Resp 16 02/26/24 07:33 BP 125/60 02/26/24 07:33 Pulse Ox 98 02/26/24 07:33 O2 Del Method Room Air 02/26/24 07:33 BMI result Body Mass Index 29.4 Gen appear: No acute distress HEENT: no icterus Chest: No overt resp distress Abd: soft, nontender, nondistended Psych: Stable affect, answering questions appropriately Neuro: A/Ox3 noted to move all extremities spontaneously Ext: no peripheral edema Results Labs 02/26/24 05:47 02/26/24 05:47 Labs: Short CBC 02/26/24 Range/Units 05:47 WBC 11.4 H (4.8-10.8) X10*3/uL Hgb 11.3 L (12.0-16.0) g/dl Hct 34.0 L (37.0-47.0) % Plt Count 367 D (160-400) X10*3/uL BMP 02/26/24 05:47 Sodium 142 Potassium 3.3 Chloride 111 H Carbon Dioxide 24 BUN 8 L Creatinine 0.69 Calcium 7.9 L D Assessment and Plan (1) Abdominal pain: Qualifiers: Abdominal location: unspecified location Qualified Code(s): R10.9 - Unspecified abdominal pain Status: Acute (2) Nausea vomiting and diarrhea: Status: Acute (3) Colitis: Status: Acute Plan Patient with acute onset of GI symptoms likely infectious gastroenteritis in etiology. Unclear if has true colitis given absence of diarrhea. Sx are predominantly abd pain and postprandial N/V. Rapid escalation of simaglutide remains in DDx. Plan: - Diet as tolerated - Serial abd exams - If minimal improvement in sx over 48 hours, can consider endoscopic evaluation. - Otherwise, if able to advance diet can be discharged. Would recommend skipping a week of GLP 1 and then going back down to previously tolerated dose. - Should also stick to small frequent meals for at least first 4 weeks of GLP 1 titration Thank you for allowing me to participate in her care. Please do not hesitate to reach out for any questions or concerns. Procedures Date of Service Date of Service: 02/26/24
[2024-02-26] MEDS: Lactated Ringers 1,000 ML 100 ML IVCONT ×2 (11:04→23:03)
[2024-02-26] MEDS: Famotidine/PF 20 MG/2 ML VIAL IVPUSH (11:05)
[2024-02-26] MEDS: HYDROmorphone HCl 0.5 MG/0.5 ML SYRINGE IVPUSH ×3 (13:27→23:03)
--- NOTE | 2024-02-26 14:34 | P.PNIM_ITS ---
Subjective Subjective Date of Service: 02/26/24 Interval History: seen and examined this morning follow up for abdominal pain; still with nausea and pain no diarrhea, no fever Review of Systems Review of Systems: Yes all other systems are reviewed and are negative Constitutional Constitutional: Denies chills and Denies fever(s) Cardiovascular Cardiovascular: Denies chest pain and Denies palpitations Gastrointestinal Gastrointestinal: Reports abdominal pain, Reports nausea and Denies vomiting Endocrine Endocrine: Denies palpitations Physical Exam 2 Vital Signs: Vital Signs: Last Vital Signs Temp 97.1 F 02/26/24 07:33 Pulse 51 02/26/24 07:33 Resp 16 02/26/24 07:33 BP 125/60 02/26/24 07:33 Pulse Ox 98 02/26/24 07:33 O2 Del Method Room Air 02/26/24 07:33 BMI result Body Mass Index 29.4 Const: Other: ill appearing General: cooperative, alert and awake Nutritional Appearance: thin O rientation/consciousness: patient oriented x3 Resp: Effort & Inspection: normal respiratory effort, able to speak in complete sentences, no respiratory distress and no use of accessory muscles Cardio: Rate: regular rate GI: Palpation (GI): Soft to palpation Neuro: General: patient oriented x3, moves all extremities and CN's II-XI intact bilaterally Extrem: General: Yes no pedal edema Objective Data Active Medications Acetaminophen (Acetaminophen 325 Mg Tablet) 650 mg PO Q6H PRN PRN Reason: Pain, Mild 1-3,fever,headache Albuterol Sulfate (Albuterol Sulfate 90 Mcg 8 Gm Inhaler) 1 puff INHALE QID PRN PRN Reason: Wheezing Buspirone HCl (Buspirone Hcl 5 Mg Tablet) 5 mg PO BID [facility] Last Admin: 02/26/24 07:44 Dose: 5 mg Documented By: ANASTASIA Calcium Carbonate (Calcium Carbonate 750 Mg Tab.Chew) 750 mg PO Q4H PRN PRN Reason: Heartburn Enoxaparin Sodium (Enoxaparin Sodium 40 Mg/0.4 Ml Syringe) 40 mg SUBCUT Q24H [facility] Last Admin: 02/25/24 16:13 Dose: 40 mg Documented By: LIZA Famotidine (Famotidine/Pf 20 Mg/2 Ml Vial) 20 mg IVPUSH DAILY [facility] Last Admin: 02/26/24 11:05 Dose: 20 mg Documented By: ANASTASIA Hydromorphone HCl (Hydromorphone Hcl 0.5 Mg/0.5 Ml Syringe) 0.5 mg IVPUSH Q4H PRN; Protocol PRN Reason: Pain, Severe (Pain Scale 7-10) Last Admin: 02/26/24 13:27 Dose: 0.5 mg Documented By: ANASTASIA Piperacillin Sod/Tazobactam (Sod 3.375 gm/ Sodium Chloride) 50 mls @ 100 mls/hr IV Q6H [facility] Last Infusion: 02/26/24 13:33 Dose: Infused Documented By: ANASTASIA Lactated Ringer's (Lr) 1,000 mls @ 100 mls/hr IVCONT .Q10H [facility] Last Admin: 02/26/24 11:04 Dose: 100 mls/hr Documented By: ANASTASIA Levothyroxine Sodium (Levothyroxine Sodium 100 Mcg Tablet) 100 mcg PO DAILY@0600 [facility] Last Admin: 02/26/24 07:44 Dose: 100 mcg Documented By: ANASTASIA Melatonin (Melatonin 3 Mg Tablet) 6 mg PO BEDTIME PRN PRN Reason: Insomnia Ondansetron HCl (Ondansetron Hcl 4 Mg/2 Ml Vial) 4 mg IVPUSH Q8H PRN PRN Reason: Nausea and Vomiting Last Admin: 02/26/24 07:44 Dose: 4 mg Documented By: ANASTASIA Polyethylene Glycol (Polyethylene Glycol 3350 17 Gm Powd.Pack) 17 gm PO DAILY PRN PRN Reason: Constipation Sodium Chloride (0.9 % Sodium Chloride Flush 3 Ml Syringe) 3 ml IVFLUSH QSHIFT [facility] Last Admin: 02/26/24 07:45 Dose: 3 ml Documented By: ANASTASIA Labs 02/26/24 05:47 02/26/24 05:47 Labs: Laboratory Results - last 24 hr 02/25/24 02/26/24 06:38 05:47 MCV 82.9 MCH 27.6 MCHC 33.2 RDW 15.7 Plt Count 367 D MPV 11.0 Immature Gran % (Auto) 0.3 Neut % (Auto) 59.9 Lymph % (Auto) 30.1 [place] % (Auto) 8.1 Eos % (Auto) 0.6 Baso % (Auto) 1.0 Lymph # (Auto) 3.4 [place] # (Auto) 0.9 Eos # (Auto) 0.1 Baso # (Auto) 0.1 Abs Immat Gran (auto) 0.04 H Absolute Neuts (auto) 6.8 Absolute Nucleated RBC 0.000 Nucleated RBC % (auto) 0.0 Anion Gap 10 L Estim Creat Clear Calc 98.4 Estimated GFR > 60 Random Glucose 86 Calcium 7.9 L D Magnesium 2.6 Assessment and Plan (1) Abdominal pain: Status: Acute Plan This is a 39-year-old female with history of hypertension, anxiety, hypothyroidism who presents to the emergency department with abdominal pain found to have colitis abdominal pain although CT evidence of colitis no diarrhea sx not c/w colitis; ossible gastroenteritis, possibly due to increasing dose of wegovy no sepsis. white count trending down continue IV fluid, antiemetics, pain control; will d/c abx seen by GI consult - advance diet as tolerated if persistent dx in next 48 hrs will consider consider endoscopic evaluation advance to full liquids has been on wegovy since october for weight loss, Would recommend skipping a week of GLP 1 and then going back down to previously tolerated dose. Should also stick to small frequent meals for at least first 4 weeks of GLP 1 titration urine culture growing staph epidermidis likely contaminant. no urinary symptoms. Hypokalemia due to decreased po intake resolved hypothyroidism resume Synthroid Hypertension bp stable off meds; resume norvasc as bp allows mood resume buspirone DVT prophylaxis-Lovenox Patient requires ongoing inpatient stay for management of acute colitis requiring multiple doses of IV narcotic medication for adequate pain control, inability to take p.o., IV antibiotics Quality Stroke Does the patient have a stroke diagnosis?: No VTE Prior VTE?: No VTE Risk Level:: Medical - moderate - high VTE Device Contraindication: N/A - Device Ordered VTE Drug Contraindication: N/A - Med Ordered
[2024-02-26 15:08] VITALS: BP 126/80; PULSE 65; RESP 16; TEMP 36.6; O2SAT 97
[2024-02-26] MEDS: Enoxaparin Sodium 40 MG/0.4 ML SYRINGE SUBCUT (17:29)
[2024-02-26 19:18] VITALS: BP 127/75; PULSE 55; RESP 18; TEMP 36.3; O2SAT 99
[2024-02-26] MEDS: Melatonin 3 MG TABLET 6 MG PO (23:03)
[2024-02-27 03:07] VITALS: BP 124/83; PULSE 62; RESP 16; TEMP 36.1; O2SAT 99
[2024-02-27] MEDS: HYDROmorphone HCl 0.5 MG/0.5 ML SYRINGE IVPUSH (03:48)
[2024-02-27] MEDS: ondansetron HCL 4 MG/2 ML VIAL IVPUSH (03:48)
[2024-02-27] MEDS: Levothyroxine Sodium 100 MCG TABLET PO (05:52)
[2024-02-27] MEDS: Famotidine/PF 20 MG/2 ML VIAL IVPUSH (07:54)
[2024-02-27] MEDS: busPIRone HCl 5 MG TABLET PO (07:54)
[2024-02-27 08:04] VITALS: BP 138/87; PULSE 61; RESP 18; TEMP 36.3; O2SAT 99
[2024-02-27] MEDS: HYDROmorphone HCl 0.5 MG/0.5 ML SYRINGE 0.25 MG IVPUSH (08:04)
[2024-02-27] MEDS: Lactated Ringers 1,000 ML 100 ML IVCONT (08:05)
--- NOTE | 2024-02-27 09:43 | PC.NURSE ---
provider went to round, pt upset stating i want to go home . offered support and educated pt on diet and reason for staying. pt still adamant about leaving. provider notified. IV removed, refused to sign AMA form. Ambulated off unit with family.
--- NOTE | 2024-02-27 09:58 | P.DS_ITS ---
DS: Providers Provider Date of Service: 02/27/24 Date of admission: 02/25/24 15:48 Date of discharge: 02/27/24 Primary care physician: De Bryant MD Consults: 02/25/24 15:57 Consult to Gastroenterology Routine Consulting Provider: Regina Snell Reason for consultation: colitis Has provider been notified: No Attending physician on discharge: Milagro Jaimes Discharging clinician: Adia Gibson DS: Diagnosis Discharge Diagnosis (1) Abdominal pain: Status: Acute DS: Summary Hospital Course Hospital Course: From H&P on the day of admission This is a 39-year-old female with history of hypertension who presents to the emergency department with abdominal pain. Patient was initially seen in the emergency department on February 22 with abdominal pain. At that time it was thought to be secondary to a recent dose increase of Wegovy. Her CT scan of abdomen and pelvis was negative at that time. She was sent home with pain medication. She reports persistent abdominal pain, nausea, vomiting. She has had decreased oral intake since Wednesday. She returned to the emergency department today due to her persistent pain and inability to take anything oral. In the emergency department white count had increased to 18.[address] scan of the abdomen mild thickening of the cecum, ascending colon, majority of the transverse colon consistent with possible mild segmental infectious/inflammatory colitis. She does report a history of recurrent colitis in the past, she had colonoscopy more than 5 years ago which was reportedly normal. She has no diagnosis of ulcerative colitis or Crohn's disease. She denies any associated rectal bleeding. She does have intermittent constipation. She will be admitted for further management of colitis abdominal pain although CT evidence of colitis no diarrhea sx not c/w colitis; possible gastroenteritis, possibly due to increasing dose of wegovy no sepsis. white count trending down treated with IV fluid, antiemetics, IV pain medication. was seen by GI who did not feel that symptoms were consistent with colitis. Recommended to advance diet as tolerated if persistent dx in next 48 hrs will consider consider endoscopic evaluation . has been on wegovy since october for weight loss, Would recommend skipping a week of GLP 1 and then going back down to previously tolerated dose. Should also stick to small frequent meals for at least first 4 weeks of GLP 1 titration. on the morning of 02/26 she had persistent nausea and reported inability to keep any liquids down but she stated she wanted to go home. She told the nurse she was leaving, she refused to sign the AMA form and left the hospital. She was awake, alert and oriented at the time she left. urine culture growing staph epidermidis likely contaminant. no urinary symptoms. Hypokalemia. due to decreased po intake. resolved Time Attestation Discharge Coordination Time (in mins): 36 Quality: Safe Use of Opioids Does Pt have an Active Cancer Diagnosis on the Problem List?: No Quality: Stroke Does the patient have a stroke diagnosis?: No Physical Exam Vital Signs: Vital Signs: Last Vital Signs Temp 97.3 F 02/27/24 08:04 Pulse 61 02/27/24 08:04 Resp 18 02/27/24 08:04 BP 138/87 02/27/24 08:04 Pulse Ox 99 02/27/24 08:04 O2 Del Method Room Air 02/27/24 08:04 BMI result Body Mass Index 29.4 Const: Other: irritable, awake, alert and oriented x3 Discharge Plan Discharge Patient Disposition: Left Against Medical Advice Discharge Diagnosis: nausea and vomiting Referrals: De Bryant MD [Primary Care Provider] - 1 Week Discharge Medications: Continued buspirone 5 mg tablet 5 mg PO BID levothyroxine 100 mcg Tablet 100 mcg PO DAILY amlodipine 10 mg tablet 10 mg PO QAM albuterol sulfate [Ventolin HFA] 90 mcg/actuation Hfa Aerosol Inhaler 1 inh INHALATION QID PRN (Reason: Wheezing) Discharge Orders: Discharge Order (Routine); Ordered 02/27/24 Ordered By: Adia Gibson Print Language: Citizen Of [place] Care Plan Goals: left AMA Health Concerns: nausea/vomiting Plan of Treatment: left AMA Assessment: left AMA Discharge Date/Time: 02/27/24 09:53
== END 2024-02-27 09:53 | disposition left against medical advice (07) | DRG 249 ==
LOC: HO.ED 14:55 → HO.EDOVER 15:59 → HO.S3 16:11
PROVIDERS: Admitting Provider Physician Assistant Medical; Emergency Provider Emergency Medicine; PCP Internal Medicine; Visit Provider Physician Assistant Medical
DX: K52.1 Toxic gastroenteritis and colitis (principal); E03.9 Hypothyroidism, unspecified; T38.3X5A Adverse effect of insulin and oral hypoglycemic [antidiabetic] drugs, initial encounter; E87.6 Hypokalemia; I10 Essential (primary) hypertension; F17.210 Nicotine dependence, cigarettes, uncomplicated; Z20.822 Contact with and (suspected) exposure to COVID-19; Z71.6 Tobacco abuse counseling; Z79.890 Hormone replacement therapy; Z79.899 Other long term (current) drug therapy
CPT/HCPCS: 0241U; 36415; 74177; 80048; 80053; 83690; 83735; 84702; 85025; 99285; J1171; J1650; J1836; J2270; J2405; J2543; J3480; J7120; Q9967

== ENCOUNTER → 2024-02-25 08:51 | Outpatient (BNV) | payer MEDICAID, SELFPAY | PROVIDERS: Emergency Provider Emergency Medicine; PCP Internal Medicine; Visit Provider Radiology Diagnostic Radiology | DX: R10.9 Unspecified abdominal pain (principal); R11.2 Nausea with vomiting, unspecified | CPT/HCPCS: 74177 ==

== ENCOUNTER → 2024-02-25 15:48 | Outpatient (BNV) | payer MEDICAID, SELFPAY | PROVIDERS: Admitting Provider Physician Assistant Medical; Emergency Provider Emergency Medicine; PCP Internal Medicine; Visit Provider Physician Assistant Medical | DX: R10.9 Unspecified abdominal pain (principal) | CPT/HCPCS: 99223; 99232; 99239 ==

== ENCOUNTER → 2024-02-25 15:48 | Outpatient (BNV) | payer MEDICAID, SELFPAY | PROVIDERS: Admitting Provider Physician Assistant Medical; Emergency Provider Emergency Medicine; PCP Internal Medicine; Visit Provider Internal Medicine | DX: K52.9 Noninfective gastroenteritis and colitis, unspecified (principal); R11.2 Nausea with vomiting, unspecified | CPT/HCPCS: 99222 ==

== ENCOUNTER 2024-04-03 15:30 | Emergency (ER) | payer MEDICAID, SELFPAY ==
--- OUTSIDE RECORDS SUMMARY | 2024-04-03 17:25 | XMS_ITS | Encounter Summary ---
Author Organization [employer] Address [address] [place] [address] [place] [address] Care Team Providers Care Help Desk Rep Name Role Phone De Bryant MD Primary Care Provider [phone] Encounter Details Date Type Department Care Team (Late Contact Info) Description 10/28/2023 Orders Only [facility] [address] [place], [place] [phone] De Bryant MD [address] [place] [address] Hypokalemia (Primary Dx) Social History Tobacco Use Types Packs/Day Years Used Date Smoking Tobacco: Every Day Cigarettes Smokeless Tobacco: Never Alcohol Use Standard Drinks/Week Comments Never 0 (1 standard drink = 0.6 oz pur e alcohol) Comments No Sex and Gender Information Value Date Recorded Sex Assigned at Female 12/29/2021 10:25 AM EDT Legal Sex Female 10:25 AM EDT Gender Identity Female 12/29/2021 10:25 AM EDT Sexual Orientation Straight 12/29/2021 10 :25 AM EDT documented as of this encounter Plan of Treatment Upcoming Encounters Date Type Department Care Team (Late st Contact Info) Description 04/27/2024 11:30 AM EST Office Visit [facility] [address] [place] [address] Lenka Jimenez, ANAMM [address] [place] [address] 05/15/2024 10:45 AM EDT Office Visit [facility] [address] [place] [address] De Bryant MD [address] [place] [address] documented as of this encounter Procedures Procedure Name Priority Date/Time Associated Diagnosis Comments BASIC METABOLIC PANEL Routine 11/17/2023 9:21 AM EDT Hypokalemia SARS COV2/INFLUENZA A/B AND RSV RNA QL NAAT Routine 10/28/2023 5:47 PM EDT CBC WITH AUTO DIFFERENTIAL Routine 10/28/2023 5:47 PM EDT C-REACTIVE PROTEIN Routine 10/28/2023 5: 47 PM EDT MAGNESIUM Routine 10/28/2023 5:47 PM EDT COMPREHENSIVE METABOLIC PANEL Routine 10/28/2023 5:47 PM EDT documented in this encounter Results * (ABNORMAL) Basic Metabolic Panel (11/17/2023 9:21 AM EDT) Sodium 136 135 - 145 mmol/L [facility] Potassium 3.8 3.3 - 5.1 mmol/L [facility] Chloride 106 96 - 108 mmol/L [facility] Carbon Dioxide 22 22 - 29 mmol/L [facility] Anion Gap 12 12 - 20 [facility] Urea Nitrogen (BUN) 6(L) 9 - 16 mg/dL [facility] Creatinine, Serum 0.72 0.5 - 1.4 mg/dL [facility] Estimated Glomerular Filt Rate >60 [facility] Comment:NOTE: For -Am erican individuals, multiply the result by 1.210.Chronic Kidney Disease: Estimated GFR < 60 mL/min/[id number] Kidney Disease: Estimated GFR < 15 mL/min/1.73m2 Glucose 84 60 - 115 mg/dL [facility] Calcium 9.5 8.4 - 10.2 mg/dL [facility] Blood Venous blood specimen / Unknown 11/17/2023 9:21 AM EDT 11/17/2023 2:13 PM EDT us De Bryant MD LAB BLOOD ORDERABLES Final Result Performing Organization Address City/[facility]/ZIP Co de Phone Number [facility] [address] [place] [phone] * (ABNORMAL) C-reactive Protein (10/28/2023 5:47 PM EDT) C Reactive Protein 1.10(H) < or = 0.50 mg/dL [facility] 10/28/2023 5:47 PM EDT 10/28/2023 5:56 PM EDT us Generic External Data Provider LAB BLOOD ORDERAB LES Final Result Performing Organization Address City/[facility]/ZIP Co de Phone Number [facility] [address] [place] [phone] SARS-CoV-2 RNA, Influenza A/B, and RSV RNA, Ql NAAT (10/28/2023 5:47 PM EDT) Pathologist [facility] Influenza A PCR NEGATIVE Negative [facility] Influenza B PCR NEGATIVE Negative [facility] Resp Syncy Virus RNA Qual PCR NEGATIVE Negative [facility] SARS COV2 PCR NEGATIVE Negative [facility] Comment:All test results mus t be correlated with clinical findings.Negative results do not preclude SARS-CoV2, influenza Avirus, influenza B virus and/or RSV infectionand should not be used as the sole basis for treatment orother patient management decisions. Negative results must becombined with clinical observations, patient history, andepidemiological information.This test has not been evaluated for monitoring treatment ofinfection.This test has been authorized by the FDA under an EmergencyUse Authorization (EUA) for use by authorized laboratories.Testing performed on the [employer] GeneXpert utilizingreal-time RT-PCR.All SARS CoV2 and positive influenza A/B results arereported to [facility]. 10/28/2023 5:47 PM EDT 10/28/2023 5:56 PM EDT Generic External Data Provider LAB MICROBIOLOGY - GENERAL ORDERABLES Final Result Performing Organization Address [facility] de Phone Number [facility] [address] [place] [phone] * Magnesium (10/28/2023 5:47 PM EDT) Magnesium 2.2 1.6 - 2.6 mg/dL [facility] 10/28/2023 5:47 PM EDT 10/28/2023 5:56 PM EDT Generic External Data Provider LAB BLOOD ORDERAB LES Final Result Performing Organization Address [facility] de Phone Number [facility] [address] [place] [phone] * (ABNORMAL) Comprehensive Metabolic Panel (10/28/2023 5:47 PM EDT) Sodium 138 135 - 145 mmol/L [facility] Potassium 2.8(LL) 3.3 - 5.1 mmol/L [facility] Comment:Critical value for t est(K): Results called to and readback by: RIDDHI Person calling: KATI Date:10/28/23 Time: 1824 Chloride 100 96 - 108 mmol/L [facility] Carbon Dioxide 28 22 - 29 mmol/L [facility] Anion Gap 13 12 - 20 [facility] Urea Nitrogen (BUN) 9 9 - 16 mg/dL [facility] Creatinine, Serum 0.77 0.5 - 1.4 mg/dL [facility] Creatinine Clr Calc Pharmacy 95.5 [facility] Comment:Provided height and weight: 157.48 cm,77.564 kg.eGFR (calculated from the MDRD study equation) and eCrCl(calculated from the Cockcroft-Gault equation) are based ondifferent parameters and may not yield comparable results.If eCrCl result is absurd, please check patient'sheight/weight. Estimated Glomerular Filt Rate >60 [facility] Comment:NOTE: For -Am erican individuals, multiply the result by 1.210.Chronic Kidney Disease: Estimated GFR < 60 mL/min/[id number] Kidney Disease: Estimated GFR < 15 mL/min/1.73m2 Glucose 124(H) 60 - 115 mg/dL [facility] Calcium 9.7 8.4 - 10.2 mg/dL [facility] Bilirubin, Total 0.3 0.0 - 1.0 mg/dL [facility] Aspartate Amino Transferase 20 5 - 31 U/L [facility] Alanine Aminotransferase 31 0 - 31 U/L [facility] Total Protein 7.4 6.5 - 8.0 g/dL [facility] Albumin Level 4.5 3.5 - 5.0 g/dL [facility] Alkaline Phosphatase 77 39 - 117 U/L [facility] 10/28/2023 5:47 PM EDT 10/28/2023 5:56 PM EDT us Generic External Data Provider LAB BLOOD ORDERAB LES Final Result [facility] [address] [place] [address] [phone] * (ABNORMAL) CBC auto differential (10/28/2023 5:47 PM EDT) White Blood Count 17.8(H) 4.8 - 10.8 X10*3/uL [facility] Red Blood Count 4.50 4.20 - 5.50 X10*6/uL [facility] Hemoglobin 12.3 12.0 - 16.0 g/dl [facility] Hematocrit 36.3(L) 37.0 - 47.0 % [facility] Mean Corpuscular Volume 80.7 80.0 - 98.0 fL [facility] Mean Corpuscular Hemoglobin 27.3 27.0 - 33.0 pg [facility] Mean Corpuscular HGB Conc 33.9 31.0 - 35.0 g/dl [facility] Red Cell Distribution Width 14.1 11.0 - 16.0 % [facility] Platelet Count 413(H) 160 - 400 X10*3/uL [facility] Mean Platelet Volume 9.9 9.4 - 12.3 fL [facility] Neutrophils Percent Auto 74.1(H) 45 - 73 % [facility] Imm Gran Pct Auto 0.4 0.0 - 0.4 % [facility] Lymphocytes Percent Auto 18.4(L) 20 - 40 % [facility] Monocytes Percent Auto 5.0 2 - 11 % [facility] Eosinophils Percent Auto 1.6 0 - 4 % [facility] Basophils Percent Auto 0.5 0 - 2 % [facility] NRBC Pct Auto 0.0 0.0 - 0.2 /100WBC [facility] Neutrophils Absolute Auto 13.2(H) 2.0 - 8.3 x10*3/uL [facility] Imm Gran Abs Auto 0.07(H) 0.00 - 0.03 X10*3/uL [facility] Lymphocytes Absolute Auto 3.3 1.2 - 4.9 X10*3/uL [facility] Monocytes Absolute Auto 0.9 0.1 - 1.2 X10*3/uL [facility] Eosinophils Absolute Auto 0.3 0.0 - 0.4 X10*3/uL [facility] Basophils Absolute Auto 0.1 0.0 - 0.2 X10*3/uL [facility] NRBC Abs Auto 0.000 0.0 - 0.012 X10*3/uL [facility] 10/28/2023 5:47 PM EDT 10/28/2023 5:56 PM EDT us Generic External Data Provider LAB BLOOD ORDERAB LES Final Result [facility] [address] [place] [phone] documented in this encounter Visit Diagnoses Diagnosis Hypokalemia- Primary Hypopotassemia documented in this encounter Care Teams Help Desk Rep Relationship Specialty Start Date End Date De Bryant MD [address] [place] [phone] PCP - General Internal Medicine 03/01/18 documented as of this encounter
--- OUTSIDE RECORDS SUMMARY | 2024-04-03 17:25 | XMS_ITS | Clinical Summary ---
Author Organization [employer] Address [address] [place] [address] [address] [place] [address] Care Team Providers Care Sales Route Driver Helper Name Role Phone De Bryant MD Primary Care Provider [phone] Allergies Active Allergy Reactions Criticality Noted Date Comments Latex Rash Low 07/16/2008 Levofloxacin Itching 03/06/2008 Morphine 06/15/2010 Valacyclovir 09/30/2012 Medications * This document contains information received from the source organization and may not represent a complete record from that organization. albuterol (2.5 MG/3ML) 0.083% nebulizer solution inhale 3 milliliter by nebulization route every 6 hours 11/27/19 21 Active Blood Pressure kitIndications: Elevated blood pressure reading 1 Units in the morning. 1 kit 11/05/19 23 Active famotidine (Pepcid) 20 MG tabletIndicatio ns:Heartburn Take 1 tablet (20 mg) by mouth Once per day. 30 tablet 3 07/29/19 24 Active busPIRone (Buspar) 5 MG tabletIndicatio ns:Generalized anxiety disorder Take 1 tablet (5 mg) by mouth 2 times daily. 60 tablet 11 10/28/19 24 2024 Active potassium chloride CR (Klor-Con M20) 20 MEQ ER tabletIndicatio ns:Hypokalemia Take 1 tablet (20 mEq) by mouth Once per day. Do not crush or chew. 10 tablet 11/10/19 24 2024 Active levothyroxine (Synthroid, Levoxyl) 100 MCG tablet TAKE 1 TABLET (100 MCG) BY MOUTH IN THE MORNING 90 tablet 1 12/20/19 24 Active albuterol (Ventolin HFA) 108 (90 Base) MCG/ACT inhalerIndicati ons:Mild persistent asthma without complication Inhale 2 puffs every 6 (six) hours if needed for wheezing. 18 g 11 01/05/20 24 Active budesonide-form oterol (Symbicort) 80-4.5 MCG/ACT inhalerIndicati ons:Mild persistent asthma without complication Inhale 2 puffs in the morning and at bedtime. Rinse mouth with water after use to reduce aftertaste and incidence of candidiasis. Do not swallow. 1 each 11 01/05/20 24 2024 Active Semaglutide-Chris ght Management (Wegovy) 1 MG/0.5ML solution auto-injectorIn dications:Overw eight (BMI 25.0-29.9) Inject 0.5 mL (1 mg) under the skin 1 (one) time per week. 2 mL 1 01/05/20 24 Active hydrOXYzine pamoate (Vistaril) 50 MG capsuleIndicati ons:Generalized anxiety disorder TAKE 1 CAPSULE BY MOUTH EVERY 8 HOURS IF NEEDED FOR ITCHING. 90 capsule 2 01/24/20 24 Active Semaglutide-Chris ght Management (Wegovy) 1.7 MG/0.75ML solution auto-injector Inject 0.75 mL (1.7 mg) under the skin every 7 (seven) days. 2 mL 02/07/20 24 Active amLODIPine (Norvasc) 10 MG tabletIndicatio ns:Primary hypertension TAKE 1 TABLET BY MOUTH EVERY MORNING 90 tablet 3 03/08/19 25 Active amLODIPine (Norvasc) 10 MG tabletIndicatio ns:Primary hypertension Take 1 tablet (10 mg) by mouth in the morning. 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 Nausea/vomiting in 01/03/2016 Subclinical hypothyroidism 05/24/2013 Overview (11/04/2022): Component Value Date TSH 25.02 12/26/2015 HPV (human papilloma virus) anogenital infection 04/25/2013 Generalized anxiety disorder 10/23/2011 IBS (irritable bowel syndrome) 10/13/2011 Overview (11/04/2022): Diarrhea predominant. Assoc with nausea, vomiting, migratory abd pain. Onset 2007 after apparent infectious gastroenteritis. Papanicolaou smear of cervix with high grade squamous intraepithelial lesion (HGSIL) 05/18/2011 Overview (05/18/2022): ERIC 2 - 04/29/2011 (Pap [id number]). Colpo 09/2011 showed only ERIC 1. 04/25/13- ERIC I Abdominal pain, chronic, left lower quadrant 03/2010 Encounters Date Type Department Care Team Description 04/03/2024 Telephone [facility] [address], [place] [phone] De Bryant MD Nurse Triage 03/15/2024 Telephone [facility] [address] [place] [address] De Bryant MD Nurse Triage 03/08/2024 Refill [facility] [address] [place], [place] [phone] De Bryant MD Primary hypertension 02/28/2024 Travel 02/25/2024 Orders Only GENERIC EXTERNAL DATA DEPARTMENT Provider, Generic External Data 02/23/2024 Orders Only GENERIC EXTERNAL DATA DEPARTMENT Provider, Generic External Data 02/22/2024 10:30 AM EST Office Visit [facility] [address] [place] [address] Chani Shell MD Left lower quadrant abdominal pain (Primary Dx) 02/22/2024 Travel 02/22/2024 Telephone [facility] [address] [place] [address] De Bryant MD Nurse Triage 02/07/2024 Refill [facility] [address] [place] [address] De Bryant MD Overweight (BMI 25.0-29.9) 01/24/2024 Refill [facility] [address] [place] [address] De Bryant MD Generalized anxiety disorder 01/05/2024 10:45 AM EST Office Visit [facility] [address] [place] [address] De Bryant MD Normal examTo maintain healthy and balanced diet (Primary Dx); Smoking 1/2 pack a day or less; Primary hypertension; Uncontrolled ; Overweight (BMI 25.0-29.9); Encounter for immunization 01/05/2024 Travel 01/04/2024 Travel from Last 3 Months Immunizations Name Administration Dates Next Due Hep A, Adult 10/28/2023 Hep B, adult 01/05/2024,10/28/2023 Influenza injectable quadriv alent preservative free 01/22/2020 Influenza, IIV3, injectable 11/13/2009, 9 Novel [id number], preservative-free 01/30/2009 Pneumococcal Conjugate PCV 20 10/28/2023 Td (adult), unspecified 02/14/2002 Tdap 06/19/2016, 4,09/27/2012,2001 Family History Medical History Relation Name Comments Von Willebrand disease Daughter Relation Name Status Comments Daughter Social History Tobacco Use Types Packs/Day Years Used Date Smoking Tobacco: Every Day Cigarettes Smokeless Tobacco: Never Tobacco Cessation:Ready to Q uit: Not Asked; Counseling Given: Not Answered Alcohol Use Standard Drinks/Week Comments Never 0 (1 standard drink = 0.6 oz pur e alcohol) Alcohol Answer Date Recorded Q1: How often do you have a drink containing alc ohol? 1 01/05/2024 Q2: How many drinks containi ng alcohol do you have on a typical day when you are drinking? 0 01/05/2024 Q3: How often do you have six or more drinks on one occasion? 1 01/05/2024 Depression Answer Date Recorded Patient Health Questionnaire-9 Score 1 01/05/2024 Patient Health Questionnaire-9 Score 1 01/05/2024 Last PHQ-9: Questionnaire Data Not on file 1 03/06/2023 Housing Stability Answer Date Recorded What is your housing situation today? I do not have housing (Staying with others, in a hotel, in a mcfp, living outside on the street, on a beach, in a car, or in a park 12/27/[address] you li ve. Do you have problems with any of the following? None of the above 12/27/2023 Food Insecurity Answer Date Recorded Within the past 12 months, y ou worried that your food would run out before you got money to buy more: Never True 12/27/2023 Within the past 12 months,th e food you bought just didn't last and you didn't have enough money to get more: Never True Transportation Answer Date Recorded In the past 12 months, has l ack of transportation kept you from medical appts, meetings, work or from getting things needed for daily living? No 12/27/2023 Utilities Answer Date Recorded In the past 12 months, has t he electric, gas, oil or water company threatened to shut off services in your home? No 12/27/2023 Depression Answer Date Recorded Patient Health Questionnaire-2 Score 0 01/05/2024 Internet Access Answer Date Recorded Internet Access Q1 Yes 12/27/2023 Internet Access Q2 Not on file 12/27/2023 Comments No Sex and Gender Information Value Date Recorded Sex Assigned at Female 12/29/2021 10:25 AM EDT Legal Sex Female 10:25 AM EDT Gender Identity Female 12/29/2021 10:25 AM EDT Sexual Orientation Straight 12/29/2021 10 :25 AM EDT Last Filed Vital Signs Vital Sign Reading Time Taken Comments Blood Pressure 116/80 02/22/2024 10:52 AM EST Pulse 92 02/22/2024 10:52 AM EST Temperature 36.4 ??C (97.5 ??F) 02/22/2024 10:[address] Respiratory Rate 20 02/22/2024 10:52 AM EST Oxygen Saturation 97% 02/22/2024 10:52 AM EST Inhaled Oxygen Concentration - - Weight 66.9 kg (147 lb 6.4 oz) 02/22/2024 10:52 AM EST Height 154.9 cm (5' 1 ) 02/22/2024 10:52 AM EST Body Mass Index 27.85 02/22/2024 10:52 AM EST Plan of Treatment Upcoming Encounters Date Type Department Care Team (Late st Contact Info) Description 04/27/2024 11:30 AM EST Office Visit [facility] [address] [place] [address] Alice Silva, CN [address] [place] [address] 05/15/2024 10:45 AM EDT Office Visit [facility] [address] [place] [address] De Bryant MD [address] [place] [address] Health Maintenance Due Date Last Done Comments HIV Screening 1985 Family Planning (PISQ) 04/27/2024 04/27/2023 Hepatitis A Vaccines (2 of 2 - Risk 2-dose series) 04/28/2024 10/28/2023 Hepatitis B Vaccines (3 of 3 - 19+ 3-dose series) 04/28/2024 01/05/2024, 10/28/2023 Influenza Vaccine (#1) 2024 , 11/13/2009, 01/30/2009, Additional history exists Postponed from 10/31/2023 (Patient Refused) SDOH Screening 12/26/2024 12/27/2023 COVID-19 Vaccine ( season) 2025 Postponed from 10/31/2023 (Patient Refused) Depression Screening 01/04/2025 01/05/2024, 01/05/20 Alcohol/Substance Use Screening 02/21/2025 02/22/2024 Tobacco Screening 02/21/2025 02/22/2024 Cervical Cancer Screening 04/27/2026 HPV/Cotest 04/27/2026 04/27/2023 Pap Smear 04/27/2026 04/27/2023 DTaP/Tdap/Td Vaccines (5 - Td or Tdap) 06/19/2026 06/19/2016, 11/02/2013, 09/27/2012, Additional history exists Lipid Panel 10/27/2028 10/28/2023 Zoster Vaccines (1 of 2) 2035 RSV Patients and Patients Aged 60 years or older (1 - 1-dose 75+ series) 02/02/2060 Hepatitis C Screening Completed 10/28/2023 Pneumococcal Vaccine: Pediatrics (0 to 5 Years) and At-Risk Patients (6 to 49) Years) Completed 10/28/2023 HIB Vaccines Aged Out No longer eligi ble based on patient's age to complete this topic HPV Vaccines Aged Out No longer eligi ble based on patient's age to complete this topic IPV Vaccines Aged Out No longer eligi ble based on patient's age to complete this topic Meningococcal Vaccine Aged Out No michael jeronimo eligible based on patient's age to complete this topic RSV under 20 months Aged Out No longe r eligible based on patient's age to complete this topic Rotavirus Vaccines Aged Out No longer eligible based on patient's age to complete this topic Procedures Procedure Name Priority Date/Time Associated Diagnosis Comments CT ABDOMEN PELVIS W CONTRAST Routine 02/25/2024 12:27 PM EST HCG, TOTAL, QN Routine 02/25/2024 6:38 AM EST CBC WITH AUTO DIFFERENTIAL Routine 02/25/2024 6:38 AM EST LIPASE Routine 02/25/2024 6:38 AM EST COMPREHENSIVE METABOLIC PANEL Routine 02/25/2024 6:38 AM EST SARS COV2/INFLUENZA A/B AND RSV RNA QL NAAT Routine 02/25/2024 6:38 AM EST URINALYSIS, COMPLETE, WITH REFLEX TO CULTURE Routine 02/23/2024 11:[address] ABDOMEN PELVIS W CONTRAST Routine 02/23/2024 8:50 AM EST HCG, TOTAL, QN Routine 02/23/2024 6:36 AM EST C-REACTIVE PROTEIN Routine 02/23/2024 6: 36 AM EST CBC WITH AUTO DIFFERENTIAL Routine 02/23/2024 6:36 AM EST LIPASE Routine 02/23/2024 6:36 AM EST COMPREHENSIVE METABOLIC PANEL Routine 02/23/2024 6:36 AM EST CULTURE, URINE, ROUTINE Routine 02/23/2024 12:00 AM EST HEPATITIS C AB W/REFL TO HCV RNA, QN, PCR Routine 10/28/2023 9:52 AM EDT Generalized anxiety disorder Primary hypertension Weight gain LIPID PANEL, STANDARD Routine 10/28/2023 9:52 AM EDT Weight gain Obesity (BMI 30-39.9) HPV MRNA E6/E7 REFLEX TO HPV 16, 18/45 Routine 04/27/2023 10:07 AM EST PAP SMEAR Routine 04/27/2023 10:07 AM EST Cervical cancer screening from Last 3 Months or Most Recently Relevant to Health Maintenance Results * CT Abdomen Pelvis w/ Contrast (02/25/2024 12:27 PM EST) Only the most recent of2 resultswithin the time period is included. Anatomical Region Laterality Modality Body, Pelvis, Abdomen Computed T omography 02/25/2024 12:2 7 PM EST Narrative 02/25/2024 1:49 PM EST ? [facility] ?[address] ?[place], [place] [address] ? CT Scan Report ? Signed ? Patient: Naheed,Barbara ?MR#: [id number] ? : 1985 ?Acct:[id number] ? Age/Sex: 39 / F ?ADM Date: 02/25/24 ? Loc: HO.ED ? Attending Dr: ? Ordering Physician: Cheng Rahman MD ?? Date of Service: 02/25/24 ?? Procedure(s): CT abdomen pelvis w IV con ?? Accession Number(s): [id number] ? cc: De Bryant MD; Cheng Rahman MD ? Report Number: ?? [id number]: Total DLP = ??421.00 mGy-cm ?? EXAMINATION: ?? CT ABDOMEN AND PELVIS WITH CONTRAST ? CLINICAL INFORMATION: ?? 39-year-old female complaining of nausea, vomiting, and abdominal pain. ? COMPARISON: ?? CT abdomen and pelvis 02/23/2024. ? TECHNIQUE: ?? Multidetector volumetric images were obtained from the superior aspect ?? of the liver through the pubic symphysis following administration 85 mL ?? of Omnipaque 350 intravenous contrast. Sagittal and coronal reformatted ?? images were obtained on the technologist's workstation. ? Oral contrast: Yes ? This CT examination was performed using dose optimization techniques as ?? appropriate, variously including the following: ?? *Automated exposure control ?? *Adjustment of mA and/or kV according to patient size (this includes ?? techniques or standardized protocols for targeted exams where dose is ?? matched to indication/reason for exam; i.e. extremities or head) ?? *Use of iterative reconstruction technique ? DLP: ?? 421 mGy-cm ? FINDINGS: ?? LUNG BASES: Aside from minimal dependent atelectasis, lung bases are ?? clear. Heart size is normal. No effusions. ? LIVER, GALLBLADDER, AND BILIARY TREE: The liver is normal in size, ?? shape, and attenuation. No focal hepatic lesion or biliary ductal ?? dilatation is present. The gallbladder is unremarkable with no evidence ?? of radiopaque gallstones, gallbladder wall thickening, or obvious ?? pericholecystic inflammatory changes. ? PANCREAS: Unremarkable. ? SPLEEN: Unremarkable. ? ADRENAL GLANDS: Unremarkable. ? KIDNEYS AND URETERS: The kidneys are normal in size, shape, and ?? attenuation. No hydronephrosis, hydroureter, or calculi seen. No ?? perinephric stranding. ? BLADDER: Unremarkable. ? GASTROINTESTINAL TRACT: ?? -Of note, there is mild wall thickening of the cecum, ascending colon, ?? and the majority of the transverse colon to the splenic flexure. ?? Findings suggest a mild segmental colitis in the appropriate clinical ?? setting. No surrounding or colonic inflammation or hyperemia. ?? -Remainder of the GI tract is normal in appearance. A normal appendix ?? is visualized. ? ABDOMINAL WALL: ?? -Normal in appearance. No hernia. ? LYMPH NODES: Normal. ? VASCULAR: Unremarkable. ? PELVIC VISCERA: The uterus and adnexa are unremarkable. ? OSSEOUS STRUCTURES: No suspicious lytic or blastic bone lesion. L3 ?? hemangioma again noted. ? CT/CT abdomen pelvis w IV con ?? IMPRESSION: ? 1. Mild perceived wall thickening of the cecum, ascending colon, the ?? majority of the transverse colon. Findings could represent a mild ?? segmental infectious/inflammatory colitis ??in the appropriate clinical ?? setting. Alternatively, findings could be spurious from ?? underdistention. No pericolonic inflammation or hyperemia is present. ?? 2. The remainder of the examination is normal. ? Fleischner guidelines were followed. ? Electronically signed by: ??El Lama MD ??02/25/2024 01:45 PM EST RP ? Dictated By: ?El Lama MD ? Signed By: ?<Electronically signed by El Lama MD in OV> ?02/25/24 1345 ? DD/ 1227 ? TD/TT: 02/25/24 1313 ? Resin Mixer: ? Procedure Note Donotuseinterpreter, Image - 02/25/[address] [address] [address] Scan Report Signed Patient: Meredith Farfan#: [id number] : 1985Acct:[id number] Age/Sex: 39 / FADM Date: 02/25/24 Loc: HO.ED Attending Dr: Ordering Physician: Cheng Rahman MD Date of Service: 02/25/24 Procedure(s): CT abdomen pelvis w IV con Accession Number(s): [id number] cc: De Bryant MD; Cheng Rahman MD Report Number: [id number]: Total DLP = 421.00 mGy-cm EXAMINATION: CT ABDOMEN AND PELVIS WITH CONTRAST CLINICAL INFORMATION: 39-year-old female complaining of nausea, vomiting, and abdominal pain. COMPARISON: CT abdomen and pelvis 02/23/2024. TECHNIQUE: Multidetector volumetric images were obtained from the superior aspect of the liver through the pubic symphysis following administration 85 mL of Omnipaque 350 intravenous contrast. Sagittal and coronal reformatted images were obtained on the technologist's workstation. Oral contrast: Yes This CT examination was performed using dose optimization techniques as appropriate, variously including the following: *Automated exposure control *Adjustment of mA and/or kV according to patient size (this includes techniques or standardized protocols for targeted exams where dose is matched to indication/reason for exam; i.e. extremities or head) *Use of iterative reconstruction technique DLP: 421 mGy-cm FINDINGS: LUNG BASES: Aside from minimal dependent atelectasis, lung bases are clear. Heart size is normal. No effusions. LIVER, GALLBLADDER, AND BILIARY TREE: The liver is normal in size, shape, and attenuation. No focal hepatic lesion or biliary ductal dilatation is present. The gallbladder is unremarkable with no evidence of radiopaque gallstones, gallbladder wall thickening, or obvious pericholecystic inflammatory changes. PANCREAS: Unremarkable. SPLEEN: Unremarkable. ADRENAL GLANDS: Unremarkable. KIDNEYS AND URETERS: The kidneys are normal in size, shape, and attenuation. No hydronephrosis, hydroureter, or calculi seen. No perinephric stranding. BLADDER: Unremarkable. GASTROINTESTINAL TRACT: -Of note, there is mild wall thickening of the cecum, ascending colon, and the majority of the transverse colon to the splenic flexure. Findings suggest a mild segmental colitis in the appropriate clinical setting. No surrounding or colonic inflammation or hyperemia. -Remainder of the GI tract is normal in appearance. A normal appendix is visualized. ABDOMINAL WALL: -Normal in appearance. No hernia. LYMPH NODES: Normal. VASCULAR: Unremarkable. PELVIC VISCERA: The uterus and adnexa are unremarkable. OSSEOUS STRUCTURES: No suspicious lytic or blastic bone lesion. L3 hemangioma again noted. CT/CT abdomen pelvis w IV con IMPRESSION: 1. Mild perceived wall thickening of the cecum, ascending colon, the majority of the transverse colon. Findings could represent a mild segmental infectious/inflammatory colitis in the appropriate clinical setting. Alternatively, findings could be spurious from underdistention. No pericolonic inflammation or hyperemia is present. 2. The remainder of the examination is normal. Fleischner guidelines were followed. Electronically signed by: El Lama MD 02/25/2024 01:45 PM EST Dictated By: El Lama MD Signed By: <Electronically signed by El Lama MD in OV> 02/25/24 1345 DD/ 1227 TD/TT: 02/25/24 1313 Resin Mixer: [facility] External Provider IMG CT PROCEDURES Final Result * SARS-CoV-2 RNA, Influenza A/B, and RSV RNA, Ql NAAT (02/25/2024 6:38 AM EST) Influenza A PCR NEGATIVE Negative [facility] Influenza B PCR NEGATIVE Negative [facility] Resp Syncy Virus RNA Qual PCR NEGATIVE Negative [facility] SARS COV2 PCR NEGATIVE Negative [facility] Comment:All test results mus t [...] use by authorized laboratories.Testing performed on the [employer] GeneXpert utilizingreal-time RT-PCR.All SARS CoV2 and positive influenza A/B results arereported to [facility]. 02/25/2024 6:38 AM EST 02/25/2024 6:44 AM EST us Generic External Data Provider LAB MICROBIOLOGY - GENERAL ORDERABLES Final Result [facility] [address] [place] [phone] * (ABNORMAL) CBC auto differential (02/25/2024 6:38 AM EST) Only the most recent of2 resultswithin the time period is included. White Blood Count 18.6(H) 4.8 - 10.8 X10*3/uL [facility] Red Blood Count 4.90 4.20 - 5.50 X10*6/uL [facility] Hemoglobin 13.5 12.0 - 16.0 g/dl [facility] Hematocrit 39.5 37.0 - 47.0 % [facility] Mean Corpuscular Volume 80.6 80.0 - 98.0 fL [facility] Mean Corpuscular Hemoglobin 27.6 27.0 - 33.0 pg [facility] Mean Corpuscular HGB Conc 34.2 31.0 - 35.0 g/dl [facility] Red Cell Distribution Width 15.0 11.0 - 16.0 % [facility] Platelet Count 509(H) 160 - 400 X10*3/uL [facility] Mean Platelet Volume 10.9 9.4 - 12.3 fL [facility] Neutrophils Percent Auto 83.2(H) 45 - 73 % [facility] Imm Gran Pct Auto 0.5(H) 0.0 - 0.4 % [facility] Lymphocytes Percent Auto 12.0(L) 20 - 40 % [facility] Monocytes Percent Auto 4.0 2 - 11 % [facility] Eosinophils Percent Auto 0.0 0 - 4 % [facility] Basophils Percent Auto 0.3 0 - 2 % [facility] NRBC Pct Auto 0.0 0.0 - 0.2 /100WBC [facility] Neutrophils Absolute Auto 15.5(H) 2.0 - 8.3 x10*3/uL [facility] Imm Gran Abs Auto 0.10(H) 0.00 - 0.03 X10*3/uL [facility] Lymphocytes Absolute Auto 2.2 1.2 - 4.9 X10*3/uL [facility] Monocytes Absolute Auto 0.7 0.1 - 1.2 X10*3/uL [facility] Eosinophils Absolute Auto 0.0 0.0 - 0.4 X10*3/uL [facility] Basophils Absolute Auto 0.1 0.0 - 0.2 X10*3/uL [facility] NRBC Abs Auto 0.000 0.0 - 0.012 X10*3/uL [facility] 02/25/2024 6:38 AM EST 02/25/2024 6:44 AM EST us Generic External Data Provider LAB BLOOD ORDERAB LES Final Result [facility] [address] [place] [phone] * hCG, Total, Quantitative (02/25/2024 6:38 AM EST) Only the most recent of2 resultswithin the time period is included. HCG Quantitative <2 mIU/mL [facility] Comment:Weeks post LMP Appro ximate hCG(Last Menstrual Period) Range (mIU/ml)3 - 4 weeks 9 - 1304 - 5 weeks 75 - 2,6005 - 6 weeks 850 - 20,8006 - 7 weeks 4000 - 100,2006 - 12 weeks 11,500 - 289,08439 - 16 weeks 18,300 - 137,90332 - 29 weeks (2nd trimester) 1,400 - 53,52863 - 41 weeks (3rd trimester) 940 - 60,000The Hernandez B- hCG assay is used for the early detection ofpregnancy; it cannot be used to diagnose any conditionunrelated to . If a B-hCG level is not supportedby the clinical evidence, results should be confirmed by analternative method (qualitative urine hCG, for example). 02/25/2024 6:38 AM EST 02/25/2024 6:44 AM EST Generic External Data Provider LAB BLOOD ORDERAB LES Final Result Performing Organization Address [facility]/ZIP Co de Phone Number [facility] [address] [place] [phone] * Lipase (02/25/2024 6:38 AM EST) Only the most recent of2 resultswithin the time period is included. Lipase 9 8 - 78 U/L [facility] 02/25/2024 6:38 AM EST 02/25/2024 6:44 AM EST Generic External Data Provider LAB BLOOD ORDERAB LES Final Result Performing Organization Address [facility]/[employer] Co de Phone Number [facility] [address] [place] [phone] * (ABNORMAL) Comprehensive Metabolic Panel (02/25/2024 6:38 AM EST) Only the most recent of2 resultswithin the time period is included. Sodium 141 135 - 145 mmol/L [facility] [facility] Potassium 3.1(L) 3.3 - 5.1 mmol/L [facility] Chloride 101 96 - 108 mmol/L [facility] Carbon Dioxide 26 22 - 29 mmol/L [facility] Anion Gap 17 12 - 20 [facility] Urea Nitrogen (BUN) 22(H) 9 - 16 mg/dL [facility] Creatinine, Serum 0.83 0.5 - 1.4 mg/dL [facility] Creatinine Clr Calc Pharmacy 77.4 [facility] Comment:Provided height and weight: 154.94 cm,63.1 kg.eGFR (calculated from the MDRD study equation) and eCrCl(calculated from the Cockcroft-Gault equation) are based ondifferent parameters and may not yield comparable results.If eCrCl result is absurd, please check patient'sheight/weight. Estimated Glomerular Filt Rate >60 [facility] Comment:Chronic Kidney Disea se: Estimated GFR < 60 mL/min/1.50n5Ilclzs Kidney Disease: Estimated GFR < 15 mL/min/1.73m2 Glucose 152(H) 60 - 115 mg/dL [facility] Calcium 9.7 8.4 - 10.2 mg/dL [facility] Bilirubin, Total 0.7 0.0 - 1.0 mg/dL [facility] Aspartate Amino Transferase 24 5 - 31 U/L [facility] Alanine Aminotransferase 26 0 - 31 U/L [facility] Total Protein 7.9 6.5 - 8.0 g/dL [facility] Albumin Level 5.1(H) 3.5 - 5.0 g/dL [facility] Alkaline Phosphatase 72 39 - 117 U/L [facility] 02/25/2024 6:38 AM EST 02/25/2024 6:44 AM EST us Generic External Data Provider LAB BLOOD ORDERAB LES Final Result [facility] [address] [place] [phone] * (ABNORMAL) Urinalysis, Complete, with Reflex to Culture (02/23/2024 11:33 AM EST) Color Urine Yellow [facility] Appearance Urine Clear [facility] PH 8.5 5.0 - 9.0 [facility] Glucose Urine UA Negative Negative mg/dL [facility] Urine Blood Small (1+)(A) Negative [facility] Specific [place] - Urine >=1.030(H) 1.005 - 1.025 [facility] Urine Protein Negative Neg-Trace mg/dL [facility] Urine Ketones 40 Negative mg/dL [facility] Nitrite Urine Negative Negative [facility] Leukocyte Esterase Urine Negative Negative [facility] RBC Urine >20(A) 0 - 2 /HPF [facility] Urine WBC 6-10(A) 0 - 5 /HPF [facility] Urine Squamous Epithelial Cell 3-5 0 - 2 /HPF [facility] Urine Bacteria None Seen None Seen [facility] Hyaline Casts, Urine 0-2 0 - 2 /LPF [facility] 02/23/2024 11:3 3 AM EST 02/23/2024 11:36 AM EST Narrative [facility] - 02/23/2024 11:56 AM EST [id number], Clean Catch us Generic External Data Provider LAB URINE ORDERAB LES Final Result Performing Organization Address City/[facility]/ZIP Co de Phone Number [facility] [address] [place] [phone] * (ABNORMAL) C-reactive Protein (02/23/2024 6:36 AM EST) C Reactive Protein 0.51(H) < or = 0.50 mg/dL [facility] 02/23/2024 6:36 AM EST 02/23/2024 6:47 AM EST Generic External Data Provider LAB BLOOD ORDERAB LES Final Result Performing Organization Address [facility] Co de Phone Number [facility] [address] [place] [phone] * Culture, Urine, Routine (02/23/2024 12:00 AM EST) Urine Urine specimen obtained by clean catch procedure / Unknown 02/23/2024 02/23/2024 Comment:UACC Narrative [facility] - 02/25/2024 7:40 AM EST Staphylococcus epidermidis Quant 10,000 to 50,000 cfu/mL Susc N/A Susceptibility not routinely performed on this isolate. Specimen Source: Urine clean catch us Generic External Data Provider LAB MICROBIOLOGY - GENERAL ORDERABLES Final Result Performing Organization Address [facility] Co de Phone Number [facility] [address] [place] [phone] * Hepatitis C Antibody with Reflex to HCV, RNA, Quantitative, Real-Time PCR (10/28/2023 9:52 AM EDT) Hepatitis C Antibody Nonreactive Nonreactive [facility] Comment:Antibodies to HCV no t detected; does not exclude early acuteHCV infection. Blood Venous blood specimen / Unknown 10/28/2023 9:52 AM EDT 10/28/2023 2:12 PM EDT us De Bryant MD LAB BLOOD ORDERABLES Final Result Performing Organization Address [facility] Co de Phone Number [facility] [address] [place] [phone] * (ABNORMAL) Lipid Panel, Standard (10/28/2023 9:52 AM EDT) Triglycerides 182(H) <150 mg/dL [facility] Comment:Desirable Triglyceri de: less than 150 mg/dLBorderline High Triglyceride 150-199 mg/dLHigh Triglyceride: 200-499 mg/dLVery High Triglyceride: greater than or equal to 5OO mg/dL Cholesterol 246(H) <200 mg/dL [facility] Comment:Desirable Cholestero l: less than 200 mg/dLBorderline High Cholesterol: 200-239 mg/dLHigh Cholesterol: greater than 239 mg/dL LDL Cholesterol Calculated 178(H) <100 mg/dL [facility] Comment:Desirable LDL: less than 100 mg/dLNear Optimal/Above Optimal LDL: 110- 129 mg/dLBorderline High LDL: 130-159 mg/dLHigh LDL: 160-189 mg/dLVery High LDL: greater than or equal to 190 mg/dL HDL Cholesterol 32(L) >40 mg/dL [facility] Comment:Desirable HDL: great er than 40 mg/dL Note: This HDL assay may give artificially low results in patients with liver disease. Blood Venous blood specimen / Unknown 10/28/2023 9:52 AM EDT 10/28/2023 2:18 PM EDT us De Bryant MD LAB BLOOD ORDERABLES Final Result [facility] [address] [place] [phone] * HPV mRNA E6/E7 w/Reflex to HPV Genotypes 16, 18/45 (04/27/2023 10:07 AM EST) HPV nRNA E6/E7 Not Detected Not Detected [facility] Comment:Methodology: Transcr iption-Mediated AmplificationThis assay detects E6/E7 viral messenger RNA (mRNA) from 14high-risk HPV types (16,18,31,33,35,39,45,51,52,56,58,59,66,68).Cervical sources are required for HPV testing.If a vaginal source from a patient who has had atotal hysterectomy with removal of cervix wassubmitted, please contact the testing laboratoryfor alternative testing options.For additional information, please refer tohttp://education.[employer]Fe[employer]/faq/XMR792e3(This link if provided for information/educational purposes only.)THIS TEST WAS PERFORMED AT:[facility] [place] [phone] TANG MD HPV mRNA E6/E7 TNP [facility] HPV 16 RNA [facility] HPV 18/45 RNA [facility] 04/27/2023 10:0 7 AM EST 04/28/2023 7:45 AM EST us Alice Silva [facility] CYTOLOGY ORDERABLES F inal Result [facility] [address] [place] [phone] * Pap Smear (04/27/2023 10:07 AM EST) Swab Cervix uteri structure / Unknown 04/27/2023 10:07 AM EST 04/28/2023 7:45 AM EST Narrative [facility] - 05/10/2023 9:14 AM EDT ----- ------- Name: Barbara Farfan ? Age/Sex: 38/F ? : 1985 Unit#: [id number] ?? Attend Dr: ALICE SILVA CNM ?Re04/27/23 ?Status: DEP REF ? Location: .LAB ?Disch: ? ----- ------- SPEC : [id number] ? RECD: 04/28/23 ? STATUS: ??SOUT ? REQ NUM: [id number] ? ИРИНА: 04/27/23 ? SUBM DR: ALICE SILVA CNM ? ENTERED: ??04/28/23 ?SP TYPE: Pap Smr ?OTHR DR: ? ORDERED: ??Pap Smear ? Interpretation ?? Satisfactory for evaluation. ?? Negative for intraepithelial lesion or malignancy. ?HPV mRNA E6/E7: ?NOT DETECTED ? This assay detects E6/E7 viral messenger RNA (mRNA) from 14 high-risk HPV types (16, 18, ?? 31, 33, 35, 39, 45, 51, 52, 56, 58, 59, 66, 68) ?? HPV testing performed by [facility], [place], [place]. ??See reference laboratory ?? portion of the EMR for entire report. ?Clinical Information LMP: Unknown date Previous PAP test: Unknown date/findings ? Material Received ?? ThinPrep-Cervical ----- ------- Signed (signature on file) OSWALDO [place] ([facility]) 05/10/23 0914 ? ----- ------- ? END OF REPORT ? us Alice Silva M LAB CYTOLOGY ORDERABLES F inal Result [facility] [address] [place] [phone] from Last 3 Months or Most Recently Relevant to Health Maintenance Insurance [facility] C3 Care Teams Sales Route Driver Helper Relationship Specialty Start Date End Date De Bryant MD [address] [place] [address] RIKI Munguia [phone] PCP - General Internal Medicine 03/01/18
--- OUTSIDE RECORDS SUMMARY | 2024-04-03 17:25 | XMS_ITS | Encounter Summary ---
Author Organization [employer] Address [address] [place] [address] Care Team Providers Care Business Proposal Rep Name Role Phone De Bryant MD Primary Care Provider [phone]- [phone] Reason for Visit * Reason Comments Med Change Request Encounter Details Date Type Department Care Team ([facility] Contact Info) Description 04/20/2023 Refill [facility] [address] [place], [place] [phone] De Bryant MD [address] [place], [place] [phone] Moderate persistent asthma, uncomplicated Social History Tobacco Use Types Packs/Day Years Used Date Smoking Tobacco: Every Day Cigarettes Smokeless Tobacco: Never Comments No Sex and Gender Information Value Date Recorded Sex Assigned at Female 12/29/2021 10:25 AM EDT Legal Sex Female 10:25 AM EDT Gender Identity Female 12/29/2021 10:25 AM EDT Sexual Orientation Straight 12/29/2021 10 :25 AM EDT documented as of this encounter Plan of Treatment Upcoming Encounters Date Type Department Care Team ([facility] Contact Info) Description 04/27/2024 11:30 AM EST Office Visit [facility] [address] [place], [place] [phone] Lenka Jimenez, VENUS [address] [place] [address] 05/15/2024 10:45 AM EDT Office Visit [facility] [address] [place] [address] De Bryant MD [address] [place] [address] documented as of this encounter Visit Diagnoses Diagnosis Moderate persistent asthma, uncomplicated documented in this encounter Care Teams Business Proposal Rep Relationship Specialty Start Date End Date De Bryant MD [address] [place] [address] PCP - General Internal Medicine 03/01/18 documented as of this encounter
--- OUTSIDE RECORDS SUMMARY | 2024-04-03 17:25 | XMS_ITS | Encounter Summary ---
Author Organization [employer] Address [address] [place] [address] Care Team Providers Care Computer Processing Scheduler Name Role Phone De Bryant MD Primary Care Provider [phone]- [phone] Reason for Visit * Reason Onset Date Comments Med Refill 06/23/2023 Encounter Details Date Type Department Care Team (Late Contact Info) Description 06/23/2023 Refill [facility] [address] [place] [address] De Bryant MD [address] [place] [address] Social History Tobacco Use Types Packs/Day Years [...] Description 04/27/2024 11:30 AM EST Office Visit [facility] [address] [place] [address] Lenka Jimenez, VEN[address] [place] [address] 05/15/2024 10:45 AM EDT Office Visit [facility]EDS [address] [place] [address] De Bryant MD [address] [place] [address] documented as of this encounter Visit Diagnoses Not on filedocumented in this encounter Care Teams Computer Processing Scheduler Relationship Specialty Start Date End Date De Bryant MD [address] [place] [address] PCP - General Internal Medicine 03/01/18 documented as of this encounter
--- OUTSIDE RECORDS SUMMARY | 2024-04-03 17:25 | XMS_ITS | Encounter Summary ---
Author Organization [employer] Address [address] [place] [address] Care Team Providers Care Emergency Dept Tech Name Role Phone De Bryant MD Primary Care Provider [phone]- [phone] Encounter Details Date Type Department Care Team (Late Contact Info) Description 01/13/2023 Orders Only [facility] [address] [place], [place] [phone] De Bryant MD [address] [place] [address] Primary hypertension (Primary Dx) Social History Tobacco Use Types [...] Description 04/27/2024 11:30 AM EST Office Visit [facility] [address] [place] [address] Lenka Jimenez CNM [address] [place] [address] 05/15/2024 10:45 AM EDT Office Visit [facility] [address] [place] [address] De Bryant MD [address] [place] [address] documented as of this encounter Visit Diagnoses Diagnosis Primary hypertension- Primary Unspecified essential hypertension documented in this encounter Care Teams Emergency Dept Tech Relationship Specialty Start Date End Date De Bryant MD [address] [place] [address] PCP - General Internal Medicine 03/01/18 documented as of this encounter
--- OUTSIDE RECORDS SUMMARY | 2024-04-03 17:25 | XMS_ITS | Encounter Summary ---
Author Organization [employer] Address [address] [place] [address] Care Team Providers Care Multimedia Specialist Name Role Phone De Bryant MD Primary Care Provider [phone]- [phone] Reason for Visit * Reason Onset Date Comments Med Refill 03/10/2023 Encounter Details Date Type Department Care Team ([facility] Contact Info) Description 03/10/2023 Refill [facility] [address] [place] [address] De Bryant MD [address] [place] [address] Elevated blood pressure reading Social History Tobacco Use Types Packs/Day Years [...] Encounters Date Type Department Care Team (Late Contact Info) Description 04/27/2024 11:30 AM EST Office Visit [facility] [address] [place] [address] Lenka Jimenez CNM [address] [place] [address] 05/15/2024 10:45 AM EDT Office Visit [facility] [address] [place] [address] De Bryant MD [address] [place] [address] documented as of this encounter Visit Diagnoses Diagnosis Elevated blood pressure reading Elevated blood pressure reading without diagnosis of hypertension documented in this encounter Care Teams Multimedia Specialist Relationship Specialty Start Date End Date De Bryant MD [address] [place] [address] PCP - General Internal Medicine 03/01/18 documented as of this encounter
--- OUTSIDE RECORDS SUMMARY | 2024-04-03 17:25 | XMS_ITS | Encounter Summary ---
Author Organization [employer] Address [address] [place] [address] [address] [place] [address] Care Team Providers Care Show Girl Name Role Phone De Bryant MD Primary Care Provider +1- [phone] Encounter Details Date Type Department Care Team (Late st Contact Info) Description 03/08/2023 Orders Only [facility] MED & PEDS [address] [place], [place] [phone] De Bryant MD [address] [place] [address] Mild persistent asthma without complication (Primary Dx); Primary hypertension Social History Tobacco Use Types Packs/Day Years [...] Description 04/27/2024 11:30 AM EST Office Visit [facility] P[facility]S [address] [place], [place] [phone] Lenka Jimenez, VENUS [address] [place] [address] 05/15/2024 10:45 AM EDT Office Visit [facility] [address] [place] [address] De Bryant MD [address] [place] [address] documented as of this encounter Visit Diagnoses Diagnosis Mild persistent asthma without complication- Primary Primary hypertension Unspecified essential hypertension documented in this encounter Care Teams Show Girl Relationship Specialty Start Date End Date De Bryant MD [address] [place] [address] PCP - General Internal Medicine 03/01/18 documented as of this encounter
--- OUTSIDE RECORDS SUMMARY | 2024-04-03 17:25 | XMS_ITS | Encounter Summary ---
Author Organization [employer] Address [address] [place] [address] Care Team Providers Care Manager Content Name Role Phone De Bryant MD Primary Care Provider [phone]- [phone] Encounter Details Date Type Department Care Team (Late st Contact Info) Description 07/29/2023 Orders Only [facility] & PEDS [address] [place], [place] [phone] De Bryant MD [address] [place] [address] Other elevated white blood cell (WBC) count (Primary Dx) Social History Tobacco Use Types [...] 04/27/2024 11:30 AM EST Office Visit [facility] [address] [place] [address] Lenka Jimenez CNM [address] [place] [address] 05/15/2024 10:45 AM EDT Office Visit [facility] [address] [place] [address] De Bryant MD [address] [place] [address] documented as of this encounter Visit Diagnoses Diagnosis Other elevated white blood cell (WBC) count- Primary documented in this encounter Care Teams Manager Content Relationship Specialty Start Date End Date De Bryant MD [address] [place] [address] PCP - General Internal Medicine 03/01/18 documented as of this encounter
--- OUTSIDE RECORDS SUMMARY | 2024-04-03 17:25 | XMS_ITS | Encounter Summary ---
Author Organization [employer] Address [address] [place] [address] Care Team Providers Care Program Consultant Name Role Phone De Bryant MD Primary Care Provider [phone]- [phone] Reason for Visit * Reason Onset Date Comments ER Follow-up 10/29/2023 Encounter Details Date Type Department Care Team ([facility] st Contact Info) Description 10/29/2023 Telephone [facility] [address] [place] [address] De Bryant MD [address] [place] [address] ER Follow-up Social History Tobacco Use Types Packs/Day Years [...] with others, in a hotel, in a usp, living outside on the street, on a [...] AM EDT documented as of this encounter Miscellaneous Notes * Telephone Encounter - Wing Mckenna RN - 10/29/2023 1:17 PM EDT Tc to pt who stated she was feeling better. Only felt that her heart raced once today briefly and denied any other symptoms such as chest pain and SOB. Pt stopped taking hydrochlorothiazide as that is what the ED recommended. Is still taking the other BP medication. Pt is also eating bananas and potassium supplements as prescribed by ED. Gave pt appt with PCP for at 11:15 am. Advised pt to continue taking supplements and following ED advice along with returning to the ED if pt has racing heart, SOB, or chest pain. Pt verbalized understanding and agreement with plan. * Telephone Encounter - Macho Pruett 10/29/2023 8:51 AM EDT Patient calling to report ED visit on : Date: 10/28/23 Hospital: [facility] Seen for: loss potassium Patient advised will forward to team nurse for follow up. Please contact at [phone] documented in this encounter Plan of Treatment Upcoming Encounters Date Type Department Care Team (Late st Contact Info) Description 04/27/2024 11:30 AM EST Office Visit [facility] P[facility] [address] [place] [address] Lenka Jimenez, VENUS [address] [place] [address] 05/15/2024 10:45 AM EDT Office Visit [facility] [address] [place] [address] De Bryant MD [address] [place] [address] documented as of this encounter Visit Diagnoses Not on filedocumented in this encounter Care Teams Program Consultant Relationship Specialty Start Date End Date De Bryant MD [address] [place] [address] PCP - General Internal Medicine 03/01/18 documented as of this encounter
--- OUTSIDE RECORDS SUMMARY | 2024-04-03 17:25 | XMS_ITS | Encounter Summary ---
Author Organization [employer] Address [address] [place] [address] Care Team Providers Care Enroute Controller Name Role Phone De Bryant MD Primary Care Provider [phone]- [phone] Encounter Details Date Type Department Care Team (Late st Contact Info) Description 12/10/2023 Orders Only [facility] [address] [place], [place] [phone] De Bryant MD [address] [place] [address] Obesity (BMI 30-39.9) (Primary Dx) Social History Tobacco Use Types [...] 11:30 AM EST Office Visit [facility] [address] [place] [address] Lenka Jimenez, VENUS [address] [place] [address] 05/15/2024 10:45 AM EDT Office Visit [facility] [address] [place] [address] De Brynat MD [address] [place] [address] documented as of this encounter Visit Diagnoses Diagnosis Obesity (BMI 30-39.9)- Primary documented in this encounter Care Teams Enroute Controller Relationship Specialty Start Date End Date De Bryant MD [address] [place] [address] PCP - General Internal Medicine 03/01/18 documented as of this encounter
--- OUTSIDE RECORDS SUMMARY | 2024-04-03 17:25 | XMS_ITS | Encounter Summary ---
Author Organization [employer] Address [address] [place] [address] [address] [place] [address] Care Team Providers Care Retail Special Event Associate Name Role Phone De Bryant MD Primary Care Provider +1- [phone] Encounter Details Date Type Department Care Team (Late st Contact Info) Description 10/28/2023 Telephone [facility] [address] [place] [address] De Bryant MD [address] [place] [address] Social History Tobacco Use Types Packs/Day Years [...] encounter Miscellaneous Notes * Telephone Encounter - Ngozi Santamaria LPN - 10/28/2023 3:13 PM EDT Incoming call to the Critical Result line 10/28/23 at 3:13 PM Name of Caller/Facility:[facility] Callback number: [phone] Reason for Call: K+ reported at 2.7 as drawn this morning at 952am. Message to be forwarded to De Bryant MD and team nurses for follow up. documented in this encounter Plan of Treatment Upcoming Encounters Date Type Department Care Team (Late st Contact Info) Description 04/27/2024 11:30 AM EST Office Visit [facility] PEDS [address] [place], [place] [phone] Lenka Jimenez, CN [address] [place] [address] 05/15/2024 10:45 AM EDT Office Visit [facility] [address] [place] [address] De Bryant MD [address] [place] [address] documented as of this encounter Visit Diagnoses Not on filedocumented in this encounter Care Teams Retail Special Event Associate Relationship Specialty Start Date End Date De Bryant MD [address] [place] [address] PCP - General Internal Medicine 03/01/18 documented as of this encounter
--- OUTSIDE RECORDS SUMMARY | 2024-04-03 17:25 | XMS_ITS | Encounter Summary ---
Author Organization [employer] Address [address] [address] Care Team Providers Care Lug Breaker And Wire Puller Name Role Phone De Bryant MD Primary Care Provider [phone] Reason for Visit * Reason Onset Date Comments Nurse Triage 03/15/2024 Encounter Details Date Type Department Care Team ([facility] st Contact Info) Description 03/15/2024 Telephone [facility] [address] [place] [address] De Bryant MD [address] [place], [place] [id number] Nurse Triage Social History Tobacco Use Types Packs/Day Years [...] with others, in a hotel, in a skilled nursing, living outside on the street, on a [...] encounter Miscellaneous Notes * Telephone Encounter - Roma Leonard RN - 03/15/2024 3:37 PM EST called pt to triage, spoke to pt. pt states has had a lump on her chin for a while now, but gettingbigger. pt states mildly red, getting bigger, and painful. pt denies open area, discharge, fever, or other associated symptoms or dental issues. advised no available appt to schedule at this time andadvised to call back tomorrow mid morning to schedule possible open [facility] appt in the afternoon. advised home care: warm compresses, fluids, OTC pain reliever as needed, and call back if worsening or new concerns. pt understands and agrees with plan. insurance verified. Protocol Used: Skin Lump or Localized Swelling (Adult) Protocol-Based Disposition: See in Office or Video Visit within 3 Days Video visit offer not recorded Positive Triage Questions: * Small swelling or lump present > 1 week * Patient wants to be seen * All higher-acuity triage questions were negative Care Advice Discussed: * Reasons To Call Back - Fever occurs - Spreading redness occurs - Swelling lasts over 1 week - You become worse * Telephone Encounter - Maximilian Marin - 03/15/2024 2:26 PM EST Symptom: Skin Lump Outcome: Schedule an urgent appointment (within 4 hours) or talk to a nurse or provider soon Reason: Red and larger than 1 inch The caller accepted this outcome. documented in this encounter Plan of Treatment Upcoming Encounters Date Type Department Care Team (Late st Contact Info) Description 04/27/2024 11:30 AM EST Office Visit [facility] [address] [place] [address] Lenka Jimenez, CN [address] [place] [address] 05/15/2024 10:45 AM EDT Office Visit [facility] [address] [place] [address] De Bryant MD [address] [place] [address] documented as of this encounter Visit Diagnoses Not on filedocumented in this encounter Additional Health Concerns Assessment Noted Time PHQ-9 Depression Total Score: 1 01/05/20 24 11:17 AM EST documented as of this encounter Care Teams Lug Breaker And Wire Puller Relationship Specialty Start Date End Date De Bryant MD [address] [place] [address] PCP - General Internal Medicine 03/01/18 documented as of this encounter
--- OUTSIDE RECORDS SUMMARY | 2024-04-03 17:25 | XMS_ITS | Encounter Summary ---
Author Organization [employer] Address [address] [place] [id number] Care Team Providers Care Hand Loom Weaver Name Role Phone De Bryant MD Primary Care Provider [phone] Reason for Visit * Reason Onset Date Comments Nurse Triage 04/03/2024 Encounter Details Date Type Department Care Team ([facility] st Contact Info) Description 04/03/2024 Telephone [facility] [address] [place] [address] De Bryant MD [address] [place] [address] Nurse Triage Social History Tobacco Use Types [...] with others, in a hotel, in a longterm, living outside on the street, on a [...] encounter Miscellaneous Notes * Telephone Encounter - Veronica Newman RN - 04/03/2024 2:57 PM EST Triage call Pt reports skin lump on edge of left side of chin. Lump size of quarter, red, warm to touch, neg for drainage. Pt has had a fever with chills past few days. Pt was seen in urgent care on [facility] about 12 days ago and was prescribed antibiotics which were finished 2-3 days ago. Pt reports much pain. Pt is offered to come to [facility] to be seen but, declines. Pt is referred to ED for evaluation and assessment at this point. Pt agrees with this plan and will call for follow up after. Protocol Used: Skin Lump or Localized Swelling (Adult) Protocol-Based Disposition: Go to Office or Video Visit Now Positive Triage Questions: * Swelling is painful to touch and fever * Swelling is red and fever * All higher-acuity triage questions were negative Care Advice Discussed: * Reasons To Call Back - Fever occurs - Spreading redness occurs - Swelling becomes painful - Swelling lasts over 1 week - You become worse * Telephone Encounter - Melissa Lacey - 04/03/2024 1:46 PM EST Symptom: Skin Lump Outcome: Schedule an urgent appointment (within 4 hours) or talk to a nurse or provider soon Reason: Red and larger than 1 inch The caller accepted this outcome. documented in this encounter Plan of Treatment Upcoming Encounters Date Type Department Care Team (Late st Contact Info) Description 04/27/2024 11:30 AM EST Office Visit [facility] [address] [place] [address] Lenka Jimenez CNM [address] [place] [address] 05/15/2024 10:45 AM EDT Office Visit [facility] [address] [place] [address] De Bryant MD [address] [place] [address] documented as of this encounter Visit Diagnoses Not on filedocumented in this encounter Additional Health Concerns Assessment Noted Time PHQ-9 Depression Total Score: 1 01/05/20 24 11:17 AM EST documented as of this encounter Care Teams Hand Loom Weaver Relationship Specialty Start Date End Date De Bryant MD [address] [place] [address] PCP - General Internal Medicine 03/01/18 documented as of this encounter
--- OUTSIDE RECORDS SUMMARY | 2024-04-03 17:25 | XMS_ITS | Encounter Summary ---
Author Organization [employer] Address [address] [place] [address] [address] [place] [address] Care Team Providers Care Repair Cameraman Name Role Phone De Bryant MD Primary Care Provider [phone] Reason for Visit * Reason Comments Med Refill Encounter Details Date Type Department Care Team ([facility] st Contact Info) Description 03/08/2024 Refill [facility] [address] [place], [place] [phone] De Bryant MD [address] [place] [address] Primary hypertension Social History Tobacco Use Types [...] with others, in a hotel, in a half-way, living outside on the street, on a [...] [facility] [address] [place] [address] Lenka Jimenez, VENUS [address] [place] [address] 05/15/2024 10:45 AM EDT Office Visit [facility] [address] [place] [address] De Bryant MD [address] [place] [address] documented as of this encounter Visit Diagnoses Diagnosis Primary hypertension Unspecified essential hypertension documented in this encounter Additional Health Concerns Assessment Noted Time PHQ-9 Depression Total Score: 1 01/05/20 24 11:17 AM EST documented as of this encounter Care Teams Repair Cameraman Relationship Specialty Start Date End Date De Bryant MD [address] [place] [id number] PCP - General Internal Medicine 03/01/18 documented as of this encounter
--- OUTSIDE RECORDS SUMMARY | 2024-04-03 17:25 | XMS_ITS | Encounter Summary ---
Author Organization [employer] Address [address] [address] Care Team Providers Care Usability Strategist Name Role Phone De Bryant MD Primary Care Provider [phone] Reason for Visit * Reason Onset Date Comments Nurse Triage 02/22/2024 Encounter Details Date Type Department Care Team ([facility] st Contact Info) Description 02/22/2024 Telephone [facility] [address] [place] [address] De Bryant MD [address] [place] [address] Nurse Triage Social History Tobacco Use Types [...] with others, in a hotel, in a retirement, living outside on the street, on a [...] Telephone Encounter - Veronica Newman RN - 02/22/2024 9:58 AM EST Triage call Pt reports constant abdominal pain mainly in the LLQ of abdomen. Pt is prescribed Wygovy and has had some abdominal pain with this medication since starting but, today this pain is much worse. Pt reports taking an increased dose , 1.7 last night . Pt has vomited x1 this morning but, reports that is normal for Pt using the medication. Pt is concerned about the constant abdominal pain and would like to see provider. No available apts [facility] Pt is given ASK apt in [place] with Dr. Shell for 1030am this morning. Pt is given directions to facility , [address] [facility] in [place]. Pt agreeswith disposition. Insurance is verified as active prior to booking. Protocol Used: Abdominal Pain - Female (Adult) Protocol-Based Disposition: See in Office or Video Visit Today Video visit not offered Positive Triage Question: * Patient wants to be seen * All higher-acuity triage questions were negative Care Advice Discussed: * Reassurance and Education - Mild Stomachache * Rest * Drink Clear Fluids * Reasons To Call Back - Severe pain lasts over 1 hour - Constant pain lasts over 2 hours - Intermittent pains (comes and goes, cramps) lasts over 48 hours - You are - You become worse * Telephone Encounter - Maximilian Marin - 02/22/2024 9:15 AM EST Symptom: Abdominal Pain - Female - Not Outcome: Talk to a nurse or provider within 15 minutes Reason: Severe pain now The caller accepted this outcome. documented in this encounter Plan of Treatment Upcoming Encounters Date Type Department Care Team (Late st Contact Info) Description 04/27/2024 11:30 AM EST Office Visit [facility] [address] [place] [address] Lenka Jimenez, ANAM [address] [place] [address] 05/15/2024 10:45 AM EDT Office Visit [facility] [address] [place] [address] De Bryant MD [address] [place] [address] documented as of this encounter Visit Diagnoses Not on filedocumented in this encounter Additional Health Concerns Assessment Noted Time PHQ-9 Depression Total Score: 1 01/05/20 24 11:17 AM EST documented as of this encounter Care Teams Usability Strategist Relationship Specialty Start Date End Date De Bryant MD [address] [place] [address] PCP - General Internal Medicine 03/01/18 documented as of this encounter
== END 2024-04-03 19:06 | disposition left against medical advice (07) ==
PROVIDERS: Emergency Provider Emergency Medicine; PCP Internal Medicine
DX: Z04.9 Encounter for examination and observation for unspecified reason (principal)